=== PATIENT | male | born 1955 | race Caucasian/White ===

== ENCOUNTER 2019-05-25 12:18 | Outpatient (RCR) | payer OTHER, SELFPAY | END 2019-06-09 00:01 | LOC: SPT 12:18 | PROVIDERS: Family Provider Internal Medicine; Visit Provider Licensed Practical Nurse | DX: M51.17 Intervertebral disc disorders with radiculopathy, lumbosacral region (principal) | CPT/HCPCS: 97110; 97162 ==

== ENCOUNTER 2019-06-10 06:00 | Outpatient (RCR) | payer OTHER, SELFPAY | END 2019-07-10 23:59 | disposition home or self-care (01) | LOC: SPT 06:00 | PROVIDERS: Family Provider Internal Medicine; PCP Internal Medicine; Visit Provider Licensed Practical Nurse | DX: M51.17 Intervertebral disc disorders with radiculopathy, lumbosacral region (principal) | CPT/HCPCS: 97110 ==

== ENCOUNTER 2019-07-11 06:00 | Outpatient (RCR) | payer OTHER, SELFPAY | END 2019-08-08 23:59 | disposition home or self-care (01) | LOC: SPT 06:00 | PROVIDERS: Family Provider Internal Medicine; PCP Internal Medicine; Visit Provider Licensed Practical Nurse | DX: Z01.89 Encounter for other specified special examinations (principal) ==

== ENCOUNTER 2020-03-28 08:39 | Inpatient (IN) | payer OTHER, MEDICARE, SELFPAY ==
[2020-03-28] VITALS (10 sets, daily range): BP systolic 148–160; BP diastolic 78–91; PULSE 70–114; RESP 14–28; TEMP 36.6–37.2; O2SAT 82–96; BMI 25.1
--- NOTE | 2020-03-28 08:48 | XRR_ITS ---
PROCEDURE INFORMATION: Exam: XR Chest, 1 View Exam date and time: 03/28/2020 9:04 AM Age: 64 years old Clinical indication: Dyspnea and shortness of breath; Patient HX: Covid + TECHNIQUE: Imaging protocol: XR of the chest Views: 1 view. COMPARISON: No relevant prior studies available. FINDINGS: Lungs: There is right upper lobe consolidation which is consistent with a pneumonia. There also hazy bilateral interstitial infiltrates. These could be due to chronic fibrosis or a viral pneumonitis. Pleural space: There is a small right pleural effusion blunting the right costophrenic angle. Heart/Mediastinum: The cardiac silhouette is enlarged. Bones/joints: Unremarkable. XR/XR chest 1V portable [id number] IMPRESSION: 1. Right upper lobe consolidation consistent with pneumonia. 2. Bilateral hazy interstitial infiltrates which may be due to an acute viral pneumonitis or chronic fibrosis. 3. Small right pleural effusion.
--- NOTE | 2020-03-28 09:02 | ED_ITS ---
HPI - COVID General: Chief Complaint: COVID symptoms Stated Complaint: SOB Time Seen by Provider: 03/28/20 08:47 Triage information: Has fever, cough or shortness of breath . No known COVID + exposure last 14 days History of Present Illness: HPI Narrative: 64-year-old male presents with complaints of shortness of breath and difficulty breathing for the last 3 days progressively worsening. He is a long-term heavy smoker smokes a pack a day or more his sats did drop with exertion however at rest on room air EMS reports she was at 96%. He has some blood-streaked yellow sputum that is increased from his baseline he denies any nausea vomiting diarrhea or headache. There is no chest pain. He is not on any blood thinners. He has not had any contact with known Covid positive patients. He does use occasional beta agonist but he has not reported a significant amount of improvement with those. MD complaint: has COVID symptoms Prior covid testing: no COVID 19 common symptoms: positive cough, productive cough and fatigue; negative throat pain, nasal congestion, nausea, vomiting or diarrhea COVID 19 other sytmptoms: positive requiring oxygen and requiring more oxygen; negative chest pain Onset (ago): day(s) Severity: moderate and slowly worsening Pertinent comorbid conditions: hypertension, COPD/respiratory disease and tobacco use/smoking Treatment prior to arrival: oxygen and other (Subcutaneous terbutaline) COVID Results: SARS-CoV-2 Antigen (Rapid) Negative (Negative) 03/28/20 08:56 03/28/20 Nasal/Oral Coronavirus 2019 PCR Pending 03/28/20 11:11 03/28/20 Review of Systems Const: Reports: fatigue ENMT: Denies: throat pain, ear or mastoid pain, nasal discharge or nasal mary estion Card: Denies: chest pain Resp: Reports: productive cough GI: Denies: abdominal pain, nausea, vomiting, hematemesis, coffee ground emesis, diarrhea, constipation, bloating, hematochezia or melena : Denies: flank pain, dysuria, urinary frequency or urinary urgency Skin/Breast: Denies: rash or pruritus [facility] PFSH: Medical History (Updated 03/28/20 @ 13:08 by Hugo Chong DO) COPD (chronic obstructive pulmonary disease) Peripheral neuropathy Surgical History (Updated 03/28/20 @ 10:56 by Salud Murphy DO) History of shoulder surgery Family History (Updated 03/28/20 @ 10:57 by Salud Murphy DO) Father Stroke Social History (Updated 03/28/20 @ 10:57 by Salud Murphy DO) Smoking and tobacco status: current some day smoker cigarettes Packs smoked per day: 1 Years cigarettes smoked: 50 Alcohol intake: never Substance/Drug Use: never Physical Exam Const: COMMON NORMALS: no acute distress GENERAL APPEARANCE: cooperative and comfortable ORIENTATION/CONSCIOUSNESS: Yes awake, Yes oriented to person, Yes oriented to place and Yes oriented to time HENMT: COMMON NORMALS: normocephalic, atraumatic and hearing grossly normal bilaterally HEAD & SCALP: normocephalic and atraumatic Neck/C-Spine: COMMON NORMALS: no JVD Resp: AUSCULTATION: rales bilateral at the base and wheezes Cardio: COMMON NORMALS: no JVD, regular rate, regular rhythm and No murmurs present (Cardio) RATE: regular rate RHYTHM: regular rhythm GI: COMMON NORMALS: Soft to palpation and No hepatosplenomegaly present AUSCULTATION: Yes normoactive bowel sounds PALPATION: Yes Soft to palpation, No Tenderness to palpation present (GI), No Guarding due to palpation present (GI) and Yes No hepatosplenomegaly present Extremity: COMMON NORMALS: normal to inspection, capillary refill normal, no clubbing, cyanosis or edema, no calf tenderness and no pedal edema Neuro: SENSORIUM/ORIENTATION: Yes oriented to person, Yes oriented to place and Yes oriented to time Skin: COMMON NORMALS: no rashes or lesions noted GENERAL SKIN EXAM: no rashes or lesions noted Course Vital Signs: Vital signs: Vital Signs Temperature 98.9 F 03/28/20 12:51 Pulse Rate 105 H 03/28/20 12:51 Respiratory Rate 17 03/28/20 12:51 Blood Pressure 155/91 03/28/20 12:51 Pulse Oximetry 92 03/28/20 12:51 MDM - COVID MDM Narrative Medical decision making narrative: Strongly suspicious for Covid pneumonia rapid antigen negative PCR is pending will admit started on IV Levaquin also given dexamethasone. Medical Records Medical records narrative: Lab Data Attestation: I reviewed the patient's lab results. Result diagrams: 03/28/20 08:22 03/28/20 08:22 Labs: Lab Results 03/28/20 03/28/20 03/28/20 Range/Units 08:22 08:22 08:22 WBC 14.8 H (4.0-10.0) 10^3/uL RBC 5.09 (4.1-5.3) 10^6/uL Hgb 14.8 (11.7-16.6) g/dL Hct 46.5 (42.0-52.0) % MCV 91.4 (80-94) fL MCH 29.1 (28.0-34.0) pg MCHC 31.8 (30.0-36.0) g/dL RDW 13.6 (12.1-15.1) % Plt Count 341 (130-400) 10^3/cmm MPV 11.4 H (7.4-10.4) fL Neut % (Auto) 78.5 % Lymph % (Auto) 9.4 % [place] % (Auto) 10.9 % Eos % (Auto) 0.5 % Baso % (Auto) 0.3 % Neut # (Auto) 11.61 H (1.8-7.7) 10^3/uL Lymph # (Auto) 1.4 (0.8-4.8) 10^3/uL [place] # (Auto) 1.6 H (0.2-0.9) 10^3/uL Eos # (Auto) 0.1 (0.0-0.8) 10^3/uL Baso # (Auto) 0.0 (0.0-0.1) 10^3/uL Nucleated RBC % (auto) 0 % Nucleated RBCs # 0.0 /100WBC Fibrinogen 603 H (174-498) mg/dL D-Dimer 0.93 H (0-0.59) ug/mIFEU Specimen Type Sample Site ABG pH (7.35-7.45) ABG pCO2 (35-45) mmHg ABG pO2 (80.0-100.0) mmHg ABG HCO3 (22-26) mmol/L ABG Base Excess (-2.0-2.0) mmol/L [place] Test Hematocrit (42-52) % O2 Delivery Device O2 Liters/Min % FiO2 % Cable Splicing Technician ID Sodium 137 (136-145) mmol/L Potassium 4.5 (3.5-5.1) mmol/L Chloride 98 (98-107) mmol/L Carbon Dioxide 26 (22-29) mmol/L Anion Gap 17.5 (5-19) BUN 35 H (8-23) mg/dL Creatinine 1.1 (0.7-1.2) mg/dL GFR Calculation 67.0 L (90-130) mL/min Glucose 122 H (65-115) mg/dL Calculated Osmolality 293 (285-295) mOsm/kg Lactic Acid (0.5-2.2) mmol/L Calcium 9.1 (8.5-10.5) mg/dL Ferritin 340 (30-400) ng/mL Total Bilirubin 0.9 (0.15-1.2) mg/dL AST 30 (0-40) U/L ALT 38 (0-41) U/L Alkaline Phosphatase 93 (40-130) IU/L Lactate Dehydrogenase 321 H (135-225) U/L C-Reactive Protein 128.3 H (0.0-4.9) mg/L NT-Pro-B Natriuret Pep 63443 H (0-125) pg/mL Total Protein 6.7 (6.6-8.7) g/dL Albumin 4.1 (3.5-5.2) g/dL Globulin 2.6 (1.3-4.6) g/dL Procalcitonin 0.16 (0-0.5) ng/mL SARS-CoV-2 Ag (Rapid) (Negative) 03/28/20 03/28/20 03/28/20 Range/Units 08:56 08:56 09:24 WBC (4.0-10.0) 10^3/uL RBC (4.1-5.3) 10^6/uL Hgb (11.7-16.6) g/dL Hct (42.0-52.0) % MCV (80-94) fL MCH (28.0-34.0) pg MCHC (30.0-36.0) g/dL RDW (12.1-15.1) % Plt Count (130-400) 10^3/cmm MPV (7.4-10.4) fL Neut % (Auto) % Lymph % (Auto) % [place] % (Auto) % Eos % (Auto) % Baso % (Auto) % Neut # (Auto) (1.8-7.7) 10^3/uL Lymph # (Auto) (0.8-4.8) 10^3/uL [place] # (Auto) (0.2-0.9) 10^3/uL Eos # (Auto) (0.0-0.8) 10^3/uL Baso # (Auto) (0.0-0.1) 10^3/uL Nucleated RBC % (auto) % Nucleated RBCs # /100WBC Fibrinogen (174-498) mg/dL D-Dimer (0-0.59) ug/mIFEU Specimen Type Arterial Sample Site Brachial, right ABG pH 7.43 (7.35-7.45) ABG pCO2 33.8 L (35-45) mmHg ABG pO2 62.8 L (80.0-100.0) mmHg ABG HCO3 22.4 (22-26) mmol/L ABG Base Excess -1.2 (-2.0-2.0) mmol/L [place] Test N/a Hematocrit 43.1 (42-52) % O2 Delivery Device Nc O2 Liters/Min 2.0 % FiO2 28.0 % Cable Splicing Technician ID Amh Sodium (136-145) mmol/L Potassium (3.5-5.1) mmol/L Chloride (98-107) mmol/L Carbon Dioxide (22-29) mmol/L Anion Gap (5-19) BUN (8-23) mg/dL Creatinine (0.7-1.2) mg/dL GFR Calculation (90-130) mL/min Glucose (65-115) mg/dL Calculated Osmolality (285-295) mOsm/kg Lactic Acid 1.5 (0.5-2.2) mmol/L Calcium (8.5-10.5) mg/dL Ferritin (30-400) ng/mL Total Bilirubin (0.15-1.2) mg/dL AST (0-40) U/L ALT (0-41) U/L Alkaline Phosphatase (40-130) IU/L Lactate Dehydrogenase (135-225) U/L C-Reactive Protein (0.0-4.9) mg/L NT-Pro-B Natriuret Pep (0-125) pg/mL Total Protein (6.6-8.7) g/dL Albumin (3.5-5.2) g/dL Globulin (1.3-4.6) g/dL Procalcitonin (0-0.5) ng/mL SARS-CoV-2 Ag (Rapid) Negative (Negative) COVID Results: SARS-CoV-2 Antigen (Rapid) Negative (Negative) 03/28/20 08:56 03/28/20 Nasal/Oral Coronavirus 2019 PCR Pending 03/28/20 11:11 03/28/20 Discharge Plan Discharge Patient Disposition: Admitted As Inpatient Admit Provider: Salud Murphy Clinical Impression: Pneumonia, Suspected severe acute respiratory syndrome coronavirus 2 (SARS-CoV-2) infection, Acute exacerbation of chronic obstructive pulmonary disease, COPD (chronic obstructive pulmonary disease), Hemoptysis Condition: Stable Interventions: ED Discharge Assessment Last Done: 03/28/20 12:12 ED Charges Last Done: 03/28/20 12:12 Discharge Date/Time: 03/28/20 12:13 Coding Level of Care Code ED Auditing Manager for Chg Fwd Exam Comprehensive
[2020-03-28 09:07] LABS: Blood Gas Sample Type Arterial; Oxygen Device NC
[2020-03-28 09:11] LABS: Basophils % 0.3 %; Eosinophils # 0.1 10^3/uL (0.0-0.8); Eosinophils % 0.5 %; Hematocrit 46.5 % (42.0-52.0); Hemoglobin 14.8 g/dL (11.7-16.6); Lymphocytes # 1.4 10^3/uL (0.8-4.8); Lymphocytes % 9.4 %; Mean Corpuscular HGB Conc 31.8 g/dL (30.0-36.0); Mean Corpuscular Hemoglobin 29.1 pg (28.0-34.0); Mean Corpuscular Volume 91.4 fL (80-94); Mean Platelet Volume 11.4 fL (7.4-10.4); Monocytes # 1.6 10^3/uL (0.2-0.9); Monocytes % 10.9 %; Neutrophils # 11.61 10^3/uL (1.8-7.7); Neutrophils % 78.5 %; Nucleated Red Blood Cells % 0 %; Platelet Count 341 10^3/cmm (130-400); Red Blood Count 5.09 10^6/uL (4.1-5.3); Red Cell Distribution Width 13.6 % (12.1-15.1); White Blood Count 14.8 10^3/uL (4.0-10.0)
[2020-03-28 09:13] LABS: ABG PCO2 33.8 mmHg (35-45); ABG PH Result 7.43 (7.35-7.45); Arterial Blood Gas Hematocrit 43.1 % (42-52); Blood Gas Operator Identificat AMH; Blood Gas Sample Site Brachial, right; HCO3 ABG 22.4 mmol/L (22-26); PO2 ABG 62.8 mmHg (80.0-100.0)
[2020-03-28 09:15] LABS: Base Excess ABG -1.2 mmol/L (-2.0-2.0)
[2020-03-28 09:17] LABS: Fibrinogen 603 mg/dL (174-498)
[2020-03-28 09:21] LABS: D Dimer 0.93 ug/mIFEU (0-0.59)
[2020-03-28 09:38] LABS: NT Pro B Type Natriuretic Pept 23065 pg/mL (0-125); Procalcitonin 0.16 ng/mL (0-0.5)
[2020-03-28 09:43] LABS: SARS Covid-2 Antigen Negative (Negative)
[2020-03-28 09:50] LABS: Lactic Sepsis W/Reflex 1.5 mmol/L (0.5-2.2)
[2020-03-28 09:51] LABS: Alanine Aminotransferase 38 U/L (0-41); Albumin Level 4.1 g/dL (3.5-5.2); Alkaline Phosphatase 93 IU/L (40-130); Anion Gap 17.5 (5-19); Aspartate Amino Transferase 30 U/L (0-40); Blood Urea Nitrogen 35 mg/dL (8-23); C Reactive Protein 128.3 mg/L (0.0-4.9); Calcium 9.1 mg/dL (8.5-10.5); Carbon Dioxide 26 mmol/L (22-29); Chloride 98 mmol/L (98-107); Ferritin 340 ng/mL (30-400); Globulin 2.6 g/dL (1.3-4.6); Glucose 122 mg/dL (65-115); Lactate Dehydrogenase 321 U/L (135-225); Osmolality Calculated 293 mOsm/kg (285-295); Potassium 4.5 mmol/L (3.5-5.1); Sodium 137 mmol/L (136-145); Total Bilirubin 0.9 mg/dL (0.15-1.2); Total Protein 6.7 g/dL (6.6-8.7)
--- NOTE | 2020-03-28 10:04 | CT_ITS ---
WS: [id number] CTA OF THE CHEST WITH PULMONARY EMBOLISM PROTOCOL TECHNIQUE: High-resolution contrast enhanced CTA of the chest with coronal and sagittal reformatted i toms with pulmonary embolism protocol. MIP images are also reviewed. CLINICAL INFORMATION: dyspnea COMPARISON: None. DLP: 996.[address] scans at [facility] use at least one of these dose optimization techniques: automat ed exposure control; mA and/or kV adjustment per patient size (includes targeted exams where dose is matched to clinical indication); or iterative reconstruction. FINDINGS: Proximal main pulmonary arteries are normal. Segmental and subsegmental pulmonary arteries appear pat ent considering motion artifact. No definite evidence of pulmonary embolus. Distal vessels not well v isualized. Moderate right pleural effusion with diffuse airspace infiltrates in the right upper lobe. Compressiv e atelectasis in the right lower lobe. Recommend correlation for pneumonia. A few groundglass infiltr ates in the left upper lobe medially. Small amount of hazy infiltrate in the superior segment left lo wer lobe. Normal caliber thoracic aorta. Aortic calcification. Prominent anterior mediastinal lymph nodes. Bron chovascular thickening along the right hilum with Right hilar and subcarinal lymphadenopathy nonspeci fic but may be reactive. CT/CT angio chest PE protcl [id number] IMPRESSION: 1. Some images degraded by motion but no evidence of pulmonary embolus. 2. Moderate right pleural effusion with compressive atelectasis in the right l ower lobe. Recommend correlation for pneumonia. 3. Diffuse airspace infiltrates involving the right upper lobe. 4. Bronchovascular thickening along the right hilum with enlarged right hilar and subcarinal lymph nodes. These are nonspecific but may be reactive. Neoplasm not entirely excluded. Attempted notification Hugo Chong DO at 03/28/2020 11:59 AM.
--- NOTE | 2020-03-28 10:12 | ECG_ITS ---
[facility] Test Date: 2020-03-28 Pat Name: Solo Ryan Department: Room: Gender: Male Insurance Coordinator: : 1955 Requested By: Hugo Arroyo Order Number: [id number] Ayden MD: Alina Clay M.D. Measurements Intervals Elmer Rate: 109 P: 78 LA: 152 QRS: -10 QRSD: 122 T: 83 QT: 368 QTc: 497 Interpretive Statements SINUS TACHYCARDIA WITH OCCASIONAL SUPRAVENTRICULAR PREMATURE COMPLEXES POSSIBLE LEFT ATRIAL ENLARGEMENT [-0.1mV P WAVE IN V1/V2] INDETERMINATE AXIS POSSIBLE RIGHT VENTRICULAR CONDUCTION DELAY [RSR (QR) IN V1/V2] LEFT VENTRICULAR HYPERTROPHY AND ST-T CHANGE [VOLTAGE CRITERIA PLUS ST/T ABNORMALITY] No previous ECG available for comparison Electronically Signed On 03-28-2020 21:39:36 CDT by Alina Clay M.D. [id number] f
[2020-03-28] MEDS: dexamethasone 4 mg/mL INJ 6 MG IVP (10:39)
[2020-03-28] MEDS: levofloxacin-dextrose 5 % 750 MG/150 ML PREMIX 100 MG IV (10:39)
--- NOTE | 2020-03-28 10:54 | USCV_ITS ---
Solo Ryan Age: 64 Gender: M : 1955 Exam Date: 03/28/2020 13:51 Ordering Phys: Salud Murphy DO Technologist: Randal Luong Exam Location: [facility] – [place], [place] Indication: MURMUR BP: 148 / 88 HR: 97 Rhythm: Sinus Technical Quality: Adequate MEASUREMENTS (Male / Female) Normal Values 2D ECHO LV Diastolic Diameter PLAX 5.9 cm 4.2 - 5.9 / 3.9 - 5.3 cm LV Systolic Diameter PLAX 5.3 cm IVS Diastolic Thickness 2.1 cm 0.6 - 1.0 / 0.6 - 0.9 cm IVS Systolic Thickness 1.9 cm LVPW Diastolic Thickness 1.7 cm 0.6 - 1.0 / 0.6 - 0.9 cm LVPW Systolic Thickness 2.0 cm LVOT Diameter 2.0 cm LV Ejection Fraction 2D Teich 22.4 % LV Ejection Fraction MOD 2C 47.1 % LV Ejection Fraction 2C AL 45.3 % LA Diameter 4.0 cm LA Width 5.0 cm LA Height 5.3 cm RA Width 3.8 cm RA Height 5.4 cm Aorta at Sinotubular Diameter 0.9 cm M-MODE LV Diastolic Diameter MM 6.5 cm 4.2 - 5.9 / 3.9 - 5.3 cm LV Systolic Diameter MM 4.7 cm LV Ejection Fraction MM Teich 52.1 % IVS Diastolic Thickness MM 1.8 cm 0.6 - 1.0 / 0.6 - 0.9 cm IVS Systolic Thickness MM 2.4 cm LVPW Diastolic Thickness MM 1.7 cm 0.6 - 1.0 / 0.6 - 0.9 cm LVPW Systolic Thickness MM 2.2 cm RV Diastolic Diameter MM 1.4 cm Aortic Annulus Diameter 3.7 cm LA Ao Ratio MM 1.2 MV E Point Septal Separation 2.2 cm DOPPLER AV Peak Velocity 424.0 cm/s LVOT Peak Velocity 63.0 cm/s AV Area Cont Eq vti 0.5 cm squared AV Area Cont Eq pk 0.5 cm squared MV Area PHT 6.3 cm squared Mitral E to A Ratio 1.6 MV E' Velocity 53.0 cm/s Mitral E to MV E' Ratio 14.0 Mitral E to LV E' Lateral Ratio 12.4 Mitral E to LV E' Septal Ratio 16.0 TR Peak Velocity 452.0 cm/s TR Peak Gradient 81.7 mmHg TV Peak E Velocity 83.0 cm/s Right Atrial Pressure 3.0 mmHg Pulmonary Artery Systolic Pressu 84.7 mmHg PV Peak Velocity 56.0 cm/s FINDINGS Left Ventricle Diffuse hypokinesia left ventricle with an ejection fraction of 35%. Moderate concentric left atrial hypertrophy.Grade III/IV diastolic dysfunction (restrictive filling pattern), severely elevated filling pressures. Right Ventricle Normal right ventricular size and systolic function. Right Atrium Normal right atrial size. Left Atrium Mildly increased left atrial size. The interatrial septum appears to be bulging to the right. Mitral Valve Thickened mitral valve. Mild mitral annular calcification. Mild mitral valve regurgitation. Aortic Valve Severe aortic valve stenosis, mean gradient 31.1 mmHg, JJ 0.49 cm squared. (Peak velocity of 4.24 m/s moderate aortic valve regurgitation. Tricuspid Valve Mild tricuspid valve regurgitation. Severe pulmonary hypertension with an estimated pulmonary artery peak systolic pressure of 85 mmHg. Pulmonic Valve Mild pulmonary valve regurgitation. Pericardium No pericardial effusion. Aorta Normal aortic annulus size. CONCLUSIONS Diffuse hypokinesia left ventricle with an ejection fraction of 35%. Moderate concentric left atrial hypertrophy.Grade III/IV diastolic dysfunction (restrictive filling pattern), severely elevated filling pressures. Severe aortic valve stenosis, mean gradient 31.1 mmHg, JJ 0.49 cm squared. (Peak velocity of 4.24 m/s Moderate aortic valve regurgitation. Severe pulmonary hypertension with an estimated pulmonary artery peak systolic pressure of 85 mmHg. Mildly increased left atrial size. The interatrial septum appears to be bulging to the right. Thickened mitral valve. Mild mitral annular calcification. Mild mitral valve regurgitation. Mild pulmonic and tricuspid regurgitation No previous studies available for comparison. Daughter Jeffrey was informed about these findings Dr Alina Clay MD [facility] (Electronically Signed) Final Date: 28 March 2020 17:52 S
--- NOTE | 2020-03-28 10:54 | PM.HP ---
Providers/Chief Complaint Primary Care Provider: Hubert Cifuentes Chief Complaint: SOB History of Present Illness Solo Ryan is a 64 year old male with a past medical history of peripheral neuropathy and tobacco abuse that presented to the emergency department today for increasing shortness of breath. Stated that his symptoms have been progressive over the past 3 to 4 days. He reports occasional chills at home, no fevers. Denies any sick contacts. Patient denies any known exposure to anyone under investigation or positive for COVID-19. He denies any cardiac history. Reports that he has been coughing up blood-tinged sputum over the past 3 to 4 days, this is new. He denies being on any oxygen at home, denies using any inhalers at home. Patient reports no recent hospitalizations, no recent antibiotic usage, no recent steroid usage. Patient was seen and evaluated in the emergency department noted to have concern for hemoptysis, hypoxia, tachycardia with concern for pneumonia and also concern for viral pneumonia. Patient was admitted for further evaluation and treatment. Review of Systems Const: Reports: chills; Denies: fever(s) Eyes: Denies: change in vision ENMT: Denies: nasal congestion Card: Denies: chest pain, palpitations or edema Resp: Reports: dyspnea, productive cough and hemoptysis GI: Denies: abdominal pain, nausea, vomiting, diarrhea, constipation, hematochezia or melena : Denies: dysuria or hematuria Musc: Denies: extremity pain or muscle cramps Skin/Breast: Denies: rash or new lesions Neuro: Denies: headache(s) or dizziness Psych: Denies: anxiety or depression Endo: Denies: polyuria or hot flashes Abraham/Lymph: Denies: easy bruising or easy bleeding Medications/Allergies Home Medications Medication Instructions Recorded Confirmed Last Taken Type acetaminophen [Tylenol] 500 mg PO QID PRN 03/28/20 03/28/20 Unknown History gabapentin 250 mg PO QID 03/28/20 03/28/20 03/28/20 History Allergies Allergy/AdvReac Type Severity Reaction Status Date / Time No Known Allergies Allergy Verified 03/28/20 08:48 PFSH Acute PFSH: Medical History (Updated 03/28/20 @ 11:01 by Salud Murphy DO) COPD (chronic obstructive pulmonary disease) Peripheral neuropathy Surgical History (Updated 03/28/20 @ 10:56 by Salud Murphy DO) History of shoulder surgery Family History (Updated 03/28/20 @ 10:57 by Salud Murphy DO) Father Stroke Social History (Updated 03/28/20 @ 10:57 by Salud Murphy DO) Smoking and tobacco status: current some day smoker cigarettes Packs smoked per day: 1 Years cigarettes smoked: 50 Alcohol intake: never Substance/Drug Use: never Vitals/I&O/Wt Last Vital Signs Temp 98.0 F 03/28/20 08:40 Pulse 108 H 03/28/20 08:48 Resp 28 H 03/28/20 08:48 BP 150/88 03/28/20 08:48 Pulse Ox 94 03/28/20 08:48 Weight last 48 hrs Weight 79.379 kg Physical Exam Const: COMMON NORMALS: patient oriented x3 and alert GENERAL APPEARANCE: cooperative ORIENTATION/CONSCIOUSNESS: Yes awake, Yes oriented to person, Yes oriented to place and Yes oriented to time HENMT: COMMON NORMALS: normocephalic and atraumatic HEAD & SCALP: normocephalic and atraumatic Eye: COMMON NORMALS: Equal, round and reactive pupils present PUPIL: Yes Equal, round and reactive pupils present Neck/C-Spine: COMMON NORMALS: supple GENERAL: Yes normal visual inspection Resp: EFFORT & INSPECTION: Yes tachypneic, Yes labored, Yes Actively coughing and Yes uses accessory muscles AUSCULTATION: no rhonchi and no wheezes OTHER: Diminished breath sounds bilaterally with prolonged expiratory phase Cardio: COMMON NORMALS: regular rhythm and No murmurs present (Cardio) RATE: tachycardic RHYTHM: regular rhythm GI: COMMON NORMALS: Soft to palpation and non-tender INSPECTION: No abdominal distension AUSCULTATION: Yes normoactive bowel sounds PALPATION: Yes Soft to palpation : COMMON NORMALS: Yes no CVA tenderness BLADDER/KIDNEY EXAM: Yes no CVA tenderness Back/Pelvis: COMMON NORMALS: no CVA tenderness Extremity: COMMON NORMALS: no calf tenderness NARRATIVE EXTREMITY EXAM: Clubbing present in the fingers Neuro: COMMON NORMALS: patient oriented x3, CN's II-XII intact bilaterally, moves all extremities and no focal motor deficits SENSORIUM/ORIENTATION: Yes alert, Yes oriented to person, Yes oriented to place and Yes oriented to time SPEECH: speech normal Psych: COMMON NORMALS: cooperative OTHER: Patient is very restless and unable to sit still Skin: COMMON NORMALS: no rashes or lesions noted GENERAL SKIN EXAM: no rashes or lesions noted Data : 03/28/20 08:22 03/28/20 08:22 Micro: Microbiology 03/28/20 09:24 Blood Culture - Preliminary Blood SPECIMEN COLLECTED 03/28/20 09:24 Blood Culture - Preliminary Blood SPECIMEN COLLECTED CXR: I personally reviewed and interpreted this imaging study as follows: Radiologist's impression: XR/XR chest 1V portable [id number] IMPRESSION: 1. Right upper lobe consolidation consistent with pneumonia. 2. Bilateral hazy interstitial infiltrates which may be due to an acute viral pneumonitis or chronic fibrosis. 3. Small right pleural effusion. A&P Assessment and plan (1) Pneumonia: With concern for viral pneumonia as well as concern for underlying COPD exacerbation, also will give antibiotics due to concern for developing bacterial pneumonia Continue on Levaquin 750 mg daily Respiratory therapy to assess and treat Oxygen per protocol Patient is not on any home oxygen, likely has underlying undiagnosed COPD, continues to smoke 1 pack/day We will further evaluate with CTA of the chest due to patient having hemoptysis and hypoxia as well as tachycardia Patient had a rapid antigen testing for COVID-19 that returned negative, however due to clinical concern patient has send out PCR that is pending. To remain on isolation precautions including contact and droplet precautions. Status: Acute (2) COPD (chronic obstructive pulmonary disease): With concern for acute exacerbation Respiratory therapy to assess and treat, oxygen per protocol Placed on Solu-Medrol 60 mg every 6 hours x3 doses then will give prednisone 40 mg daily Continue with antibiotics as above, Levaquin Status: Acute (3) Hemoptysis: Is tachycardic, tachypneic, hypoxic and has new onset hemoptysis We will further evaluate with CTA of the chest due to elevated D-dimer Status: Acute Additional A&P Information Continue home gabapentin for peripheral neuropathy Elevated BNP: We will check echocardiogram for further evaluation and treatment due to concern for this and hypoxia DVT prophylaxis: SCDs, no pharmacologic prophylaxis due to concern for hemoptysis Diet: 2 g sodium restriction CODE STATUS: Full code, this was discussed with the patient Attestations Medical Necessity Statement*: Patient requires hospitalization due to concern for pneumonia, hypoxia, acute COPD exacerbation with hemoptysis, expected stay greater than 2 midnights. Coding Level of Care Code Acute Head Silverman for [facility] Fwd Diagnoses Pneumonia J18.9 COPD (chronic obstructive pulmonary disease) J44.9 Hemoptysis R04.2
[2020-03-28] MEDS: iohexol 350 mg/mL 100 mL Btl IV (11:14)
[2020-03-28 15:53] LABS: Basophils % 0.1 %; Hematocrit 43.5 % (42.0-52.0); Hemoglobin 13.7 g/dL (11.7-16.6); Lymphocytes # 0.3 10^3/uL (0.8-4.8); Lymphocytes % 2.8 %; Mean Corpuscular HGB Conc 31.5 g/dL (30.0-36.0); Mean Corpuscular Hemoglobin 28.5 pg (28.0-34.0); Mean Corpuscular Volume 90.6 fL (80-94); Mean Platelet Volume 10.8 fL (7.4-10.4); Monocytes # 0.2 10^3/uL (0.2-0.9); Monocytes % 1.6 %; Neutrophils # 10.58 10^3/uL (1.8-7.7); Neutrophils % 95.2 %; Nucleated Red Blood Cells % 0 %; Platelet Count 351 10^3/cmm (130-400); Red Cell Distribution Width 13.6 % (12.1-15.1); White Blood Count 11.1 10^3/uL (4.0-10.0)
[2020-03-28 15:56] LABS: INR 1.13 (0.8-1.2)
[2020-03-28] MEDS: albuterol 8 gm MDI 2 PUFF INHALATION ×3 (16:25→23:43)
[2020-03-28] MEDS: gabapentin 300 mg Capsule PO (19:02)
[2020-03-29] VITALS (14 sets, daily range): BP systolic 109–169; BP diastolic 70–84; PULSE 71–110; RESP 18–22; TEMP 36.4–36.9; O2SAT 74–94
[2020-03-29] MEDS: gabapentin 300 mg Capsule PO ×5 (00:28→22:05)
[2020-03-29 02:41] LABS: Amphetamines Screen Urine Negative (Negative); Barbiturates Screen Urine Negative (Negative); Benzodiazepines Screen Urine Negative (Negative); Cocaine Screen Urine Negative (Negative); Opiate Screen Urine Negative (Negative); PCP Screen Urine Negative (Negative); THC Screen Urine Positive (Negative)
[2020-03-29] MEDS: albuterol 8 gm MDI 2 PUFF INHALATION ×3 (04:09→15:06)
[2020-03-29 06:43] LABS: Blood Urea Nitrogen 41 mg/dL (8-23); Calcium 8.7 mg/dL (8.5-10.5); Carbon Dioxide 16 mmol/L (22-29); Chloride 102 mmol/L (98-107); Glomerular Filtration Rate 60.6 mL/min (90-130); Glucose 151 mg/dL (65-115); Osmolality Calculated 291 mOsm/kg (285-295); Sodium 134 mmol/L (136-145)
[2020-03-29 06:46] LABS: Anion Gap 20.7 (5-19); Potassium 4.7 mmol/L (3.5-5.1)
[2020-03-29] MEDS: FUROsemide 10 mg/mL SDV 4mL 40 MG IVP ×2 (08:57→22:05)
[2020-03-29] MEDS: pantoprazole DR 40 mg Tablet PO (08:58)
--- NOTE | 2020-03-29 09:08 | P.PN_ITS ---
Subjective Subjective: Interval history: Patient awake and sitting at the side of the bed upon entering the room. He reported that his shortness of breath continues, denies any chest pain. He stated that breathing is slightly better than yesterday but continues to have productive cough, blood-streaked sputum. Discussed with him concern for severe aortic stenosis and congestive heart failure, he verbalized understanding and agreed with cardiology consultation. Vitals/I&O/Wt Last Vital Signs Temp 97.5 F L 03/29/20 08:00 Pulse 102 H 03/29/20 08:29 Resp 18 03/29/20 08:29 BP 169/82 03/29/20 08:00 Pulse Ox 92 03/29/20 08:29 03/28/20 03/29/20 03/29/20 22:59 06:59 14:59 Intake Total 120 / 120 Output Total 200 / 200 Balance 120 / 120 -200 / -200 Weight last 48 hrs Weight 79.379 kg Physical Exam Const: COMMON NORMALS: patient oriented x3 and alert GENERAL APPEARANCE: cooperative ORIENTATION/CONSCIOUSNESS: Yes awake, Yes oriented to person, Yes oriented to place and Yes oriented to time HENMT: COMMON NORMALS: normocephalic and atraumatic HEAD & SCALP: normocephalic and atraumatic Eye: COMMON NORMALS: Equal, round and reactive pupils present PUPIL: Yes Equal, round and reactive pupils present Neck/C-Spine: COMMON NORMALS: supple GENERAL: Yes normal visual inspection Resp: EFFORT & INSPECTION: Yes tachypneic, Yes labored, Yes Actively coughing and Yes uses accessory muscles AUSCULTATION: no rhonchi and no wheezes OTHER: Diminished breath sounds bilaterally with prolonged expiratory phase Cardio: COMMON NORMALS: regular rhythm RATE: tachycardic RHYTHM: regular rhythm OTHER: distant heart sounds, systolic murmur GI: COMMON NORMALS: Soft to palpation and non-tender INSPECTION: No abdominal distension AUSCULTATION: Yes normoactive bowel sounds PALPATION: Yes Soft to palpation : COMMON NORMALS: Yes no CVA tenderness BLADDER/KIDNEY EXAM: Yes no CVA tenderness Back/Pelvis: COMMON NORMALS: no CVA tenderness Extremity: COMMON NORMALS: no calf tenderness NARRATIVE EXTREMITY EXAM: Clubbing present in the fingers Neuro: COMMON NORMALS: patient oriented x3, CN's II-XII intact bilaterally, moves all extremities and no focal motor deficits SENSORIUM/ORIENTATION: Yes alert, Yes oriented to person, Yes oriented to place and Yes oriented to time SPEECH: speech normal Psych: COMMON NORMALS: cooperative OTHER: Patient remains restless Skin: COMMON NORMALS: no rashes or lesions noted GENERAL SKIN EXAM: no rashes or lesions noted Data : 03/28/20 15:35 03/29/20 05:11 Micro: Microbiology 03/28/20 09:24 Blood Culture - Preliminary Blood SPECIMEN COLLECTED 03/28/20 09:24 Blood Culture - Preliminary Blood SPECIMEN COLLECTED A&P Assessment and plan (1) Pneumonia: Continue Levaquin 750mg daily RTAT, oxygen per protocol Status: Acute (2) COPD (chronic obstructive pulmonary disease): With acute exacerbation, continue on Levaquin, received 3 doses of Solu- Medrol, transition to prednisone today Status: Acute (3) Hemoptysis: CTA showing bronchovascular thickening along the right hilum with enlarged right hilar and subcarinal lymph nodes, may be reactive due to pneumonia, neoplasm cannot be excluded would recommend close outpatient follow-up Status: Acute Additional A&P Information New diagnosis of combined CHF: Diffuse hypokinesis, LVEF of 35% with grade 3 diastolic dysfunction and severe pulmonary hypertension. Continue with IV Lasix 40 mg daily, started on low-dose beta-jason, JENY inhibitor, cardiology consultation. Severe aortic stenosis: Cardiology consultation, this is new diagnosis for patient, denies any history of valvular heart disease Continue home gabapentin for peripheral neuropathy Patient remains under investigation for COVID-19 viral pneumonia, remain on contact and droplet precautions at this time DVT prophylaxis: SCDs, no pharmacologic prophylaxis due to concern for hemoptysis Diet: 2 g sodium restriction CODE STATUS: Full code, this was discussed with the patient on admission Attestations Medical Necessity Statement*: Patient requires hospitalization due to pneumonia, combined CHF exacerbation, severe aortic stenosis, hemoptysis and COPD exacerbation Coding Level of Care Code Acute Key Account Director for [facility] Fwd Diagnoses Pneumonia J18.9 COPD (chronic obstructive pulmonary disease) J44.9 Hemoptysis R04.2
[2020-03-29 09:52] LABS: Chol HDL Ratio 4.26 mg/dL (1.0-5.00); Cholesterol 149 mg/dL (0-200); HDL Cholesterol 35 mg/dL (60-100); LDL Cholesterol Calculated 96 mg/dL (50-129); LDL HDL Ratio 2.74 RATIO (0.00-3.22); Triglycerides 89 mg/dL (0-150)
[2020-03-29] MEDS: lisinopril 2.5 mg Tablet PO (11:08)
[2020-03-29] MEDS: predniSONE 20 mg Tablet 40 MG PO (11:08)
[2020-03-29] MEDS: metoprolol tartrate 25 mg Tablet PO ×2 (11:09→17:23)
[2020-03-29] MEDS: levofloxacin-dextrose 5 % 750 MG/150 ML PREMIX 100 MG IV (11:09)
[2020-03-29 11:34] LABS: Basophils % 0.1 %; Hematocrit 44.8 % (42.0-52.0); Hemoglobin 14.3 g/dL (11.7-16.6); Lymphocytes # 0.5 10^3/uL (0.8-4.8); Lymphocytes % 2.1 %; Mean Corpuscular HGB Conc 31.9 g/dL (30.0-36.0); Mean Corpuscular Hemoglobin 29.1 pg (28.0-34.0); Mean Corpuscular Volume 91.2 fL (80-94); Monocytes % 4.3 %; Neutrophils # 20.99 10^3/uL (1.8-7.7); Nucleated Red Blood Cells % 0 %; Platelet Count 325 10^3/cmm (130-400); Red Blood Count 4.91 10^6/uL (4.1-5.3); Red Cell Distribution Width 13.6 % (12.1-15.1); White Blood Count 22.6 10^3/uL (4.0-10.0)
--- NOTE | 2020-03-29 16:35 | P.CONIM_ITS ---
Providers/Reason For Consult Consulting Physican/Specialty*: Reynaldo Clay MD/cardiology Reason for Consult*: Patient has LV dysfunction, severe aortic valve stenosis and shortness of breath Attending Physician: Salud Murphy DO Primary Care Provider: Hubert Cifuentes History of Present Illness History of Present Illness Solo Ryan is a 64 year old male is admitted to the hospital, through the emergency room, where he presented with complaints of progressive shortness of breath. He was found to have features of COPD exacerbation, possible pneumonia and congestive heart failure. His echocardiogram revealed possible severe aortic valve stenosis with diminished LV ejection fraction of around 35%. He denies any chest pain or palpitations. No dizziness or syncopal episode. Patient may have had a low-grade fever. He also had a dry cough. No significant leg swelling. The shortness of breath has been gradually getting worse. For these complaints, he decided to come to the hospital. He was tested negative for Covid.-19. He has a longstanding history of smoking abuse for 60 years or so, 1 pack a day. Remote history of alcohol abuse. No other substance abuse. He has not been doing any medication for COPD. He has a history of neuropathy from right shoulder injury. He has been taking the gabapentin for this. No history for coronary artery disease, myocardial infarction or congestive heart failure. No history for CVA or the risk of bleeding, hematoma, vascular injury, distal embolization/gangrene, renal failure, limb loss and other concomitant complications were explained in detail. Patient understood this well and consented to proceed. No history for kidney disease, liver disease or bleeding disorders. Review of Systems Narrative: GENERAL: The patient is alert and oriented times three. Not in any acute distress. HEENT: No significant pallor, icterus or lymphadenopathy. The pupils are reactant to light. Oral cavity: There are no mucous membrane lesions. Fundus is not visualized NECK: Trachea appears to be central. No masses noted. No JVD or thyromegaly appreciated. No carotid bruit. RESPIRATORY: Chest is symmetrical. No intercostals muscle retraction or any accessory muscle activation. There is no chest wall tenderness. Breath sounds are heard bilaterally. No rales or rhonchi heard. No evidence of any consolidation. BREASTS: Deferred. HEART: The PMI is in the 5th left intercostals space just inside the midclavicular line. No palpable precordial events. S1 and S2 are normal. No S3 or S4 heard. No pericardial rub or any click heard. ABDOMEN: No vessel pulsations or distention. No tenderness. No organomegaly appreciated. No abdominal bruit. Bowel sounds are normally heard. : Deferred. RECTAL: Deferred. LYMPHATIC: No lymphadenopathy noted in the neck or groin. EXTREMITIES: The dorsalis pedis and posterior pulses are weak bilaterally. Trace edema. No cyanosis. MUSCULOSKELETAL: No acute joint deformities or swelling SKIN: There are no significant scars or skin rash noted. NEUROPSYCHIATRIC: The patient is alert and oriented x3. Appears to be in a good mood. The higher functions are grossly within normal limits. No tremors or ri gidity noted. Meds/Allergies Home Medications and Allergies Home Medications Medication Instructions Recorded Confirmed Last Taken Type acetaminophen [Tylenol] 500 mg PO QID PRN 03/28/20 03/28/20 Unknown History gabapentin 250 mg PO QID 03/28/20 03/28/20 03/28/20 History Allergies Allergy/AdvReac Type Severity Reaction Status Date / Time No Known Allergies Allergy Verified 03/28/20 08:48 Current Medications Current Medications Generic Name Dose Route Start Last Admin Trade Name Freq PRN Reason Stop Dose Admin Albuterol Sulfate 2 puff 03/28/20 16:00 03/29/20 15:06 Ventolin INHALATION 2 puff Q4H.RESPIRATORY PRN Administration SHORTNESS OF BREATH Gabapentin 300 mg 03/28/20 17:00 03/29/20 14:06 Neurontin PO 300 mg QID JOSÉ ANTONIO Administration Levofloxacin/Dextrose 750 mg in 150 mls @ 100 mls/hr 03/29/20 10:30 03/29/20 11:09 Levaquin-D5w IV 100 mls/hr Q24H JOSÉ ANTONIO Administration Protocol Lisinopril 2.5 mg 03/29/20 09:30 03/29/20 11:08 Prinivil PO 2.5 mg DAILY JOSÉ ANTONIO Administration Metoprolol Tartrate 25 mg 03/29/20 09:00 03/29/20 11:09 Lopressor PO 25 mg BID JOSÉ ANTONIO Administration Pantoprazole Sodium 40 mg 03/29/20 09:00 03/29/20 08:58 Protonix PO 40 mg DAILY JOSÉ ANTONIO Administration Prednisone 40 mg 03/29/20 09:30 03/29/20 11:08 Prednisone PO 40 mg DAILY JOSÉ ANTONIO Administration PFSH Acute PFSH: Medical History Acute systolic heart failure COPD (chronic obstructive pulmonary disease) Peripheral neuropathy Severe aortic valve stenosis Surgical History History of shoulder surgery Family History Father Stroke Social History Smoking and tobacco status: current some day smoker cigarettes Packs smoked per day: 1 Years cigarettes smoked: 50 Alcohol intake: never Substance/Drug Use: never Vitals/I&O/Wt Last Vital Signs Temp 98.0 F 03/29/20 15:47 Pulse 94 03/29/20 15:47 Resp 18 03/29/20 15:47 BP 149/83 03/29/20 15:47 Pulse Ox 90 03/29/20 15:47 03/29/20 03/29/20 03/29/20 06:59 14:59 22:59 Intake Total 640 / 640 Output Total 600 / 600 300 / 900 Balance 40 / 40 -300 / -260 Weight last 48 hrs Weight 175 lb Physical Exam Narrative: EXAM NARRATIVE: GENERAL: The patient is alert and oriented times three. Not in any acute distress. HEENT: No significant pallor, icterus or lymphadenopathy. . Oral cavity: There are no mucous membrane lesions. Funduscopic examination: The fundus is not visualized NECK: Trachea appears to be central. No masses noted. No JVD or thyromegaly appreciated. No carotid bruit. RESPIRATORY: Chest is symmetrical. No intercostals muscle retraction or any accessory muscle activation. There is no chest wall tenderness. Breath sounds are heard bilaterally. Scattered rales and rhonchi bilaterally. No evidence of any consolidation. BREASTS: Deferred. HEART: The PMI is in the 5th left intercostals space just in the midclavicular line. No palpable precordial events. S1 and S2 are normal. No S3 or S4 heard. No pericardial rub or any click heard. Ejection systolic murmur of grade 4/6 in the aortic area with a transmission to both carotids. No diastolic murmurs. ABDOMEN: No vessel pulsations or distention. No tenderness. No organomegaly appreciated. No abdominal bruit. Bowel sounds are normally heard. : Deferred. RECTAL: Deferred. LYMPHATIC: No lymphadenopathy noted in the neck or groin. EXTREMITIES: No severe edema or cyanosis. Peripheral pulses are weak bilaterally. MUSCULOSKELETAL: No acute joint deformities or swelling. SKIN: There are no significant scars or skin rash noted. NEUROPSYCHIATRIC: The patient is alert and oriented x3. Appears to be in a good mood. The higher functions are grossly within normal limits. No tremors or rigidity noted. Data Micro: Micro: Microbiology 03/28/20 23:31 Gram Stain - Final Sputum - Expector ated Sputum 03/28/20 09:24 Blood Culture - Pr eliminary Blood NEGATIVE TO CAMILLE E 03/28/20 09:24 Blood Culture - Pr eliminary Blood NEGATIVE TO CAMILLE E Echocardiogram on 03/28/2020 Diffuse hypokinesia left ventricle with an ejection fraction of 35%. Moderate concentric left atrial hypertrophy.Grade III/IV diastolic dysfunction (restrictive filling pattern), severely elevated filling pressures. Severe aortic valve stenosis, mean gradient 31.1 mmHg, JJ 0.49 cm squared. (Peak velocity of 4.24 m/s Moderate aortic valve regurgitation. Severe pulmonary hypertension with an estimated pulmonary artery peak systolic pressure of 85 mmHg. Mildly increased left atrial size. The interatrial septum appears to be bulging to the right. Thickened mitral valve. Mild mitral annular calcification. Mild mitral valve regurgitation. Mild pulmonic and tricuspid regurgitation No previous studies available for comparison. Jaja Murphy was informed about these findings Chest CTA 1. Some images degraded by motion but no evidence of pulmonary embolus. 2. Moderate right pleural effusion with compressive atelectasis in the right lower lobe. Recommend correlation for pneumonia. 3. Diffuse airspace infiltrates involving the right upper lobe. 4. Bronchovascular thickening along the right hilum with enlarged right hilar and subcarinal lymph nodes. These are nonspecific but may be reactive. Neoplasm not entirely excluded. The EKG revealed Sinus tachycardia with possible left atrial enlargement. Features of LVH. Right ventricular conduction delay. Nonspecific IVCD. A&P Assessment and plan (1) Acute systolic heart failure: Patient may be carefully treated with IV diuresis. Also may add afterload reducing agents. Patient apparently has no previous history for any coronary artery disease or myocardial infarction. No history for history of heart failure. Since the blood pressure is on the low normal side, the medication options are limited Status: Acute (2) Severe aortic valve stenosis: He requires a cardiac catheterization, to further evaluate the LV function and RV function. We also need to rule out any coronary disease, causing the LV dysfunction Status: Acute (3) Acute exacerbation of chronic obstructive pulmonary disease: Management as per the primary Status: Acute (4) Cardiomyopathy as manifestation of underlying disease: Etiology of the LV dysfunction is not clear. after reviewing the cardiac catheterization data, further management decisions will be made Status: Acute (5) Hemoptysis: Patient had some blood-tinged sputum. This could be related to underlying pneumonia. Seems to no recurrence. This needs to be closely monitored. Status: Acute Additional A&P Information Other problems are Leukocytosis, etiology? Possible pneumonia Renal insufficiency After reviewing the above and also based on the patient's clinical progress, further recommendations will be made. Thank you for the opportunity to evaluate this patient and make these recommendations. Coding Level of Care Code Acute Power Nut Runner Operator for [facility] Medical Decision Making High Complexity Diagnoses Acute systolic heart failure I50.21 Severe aortic valve stenosis I35.0 Acute exacerbation of chronic obstructive pulmonary disease J44.1 Cardiomyopathy as manifestation of underlying disease I43 Hemoptysis R04.2 Time Spent (min) 60
--- NOTE | 2020-03-29 17:00 | PC.NURSE ---
Rcvd message from Dr Murphy stating patient is COVID negative and can come off isolation.
[2020-03-30] VITALS (13 sets, daily range): BP systolic 86–125; BP diastolic 49–88; PULSE 67–98; RESP 18–22; TEMP 36.4–37.1; O2SAT 90–96
--- NOTE | 2020-03-30 06:00 | XRR_ITS ---
PROCEDURE INFORMATION: Exam: XR Chest, 1 View Exam date and time: 03/30/2020 5:20 AM Age: 64 years old Clinical indication: Condition or disease; Lung condition and disease; Pneumonia and other: Chf; Shortness of breath; Additional info: Hypoxia, pneumonia, chf TECHNIQUE: Imaging protocol: XR of the chest Views: 1 view. COMPARISON: CR XR chest 1V portable [id number] 03/28/2020 8:52 AM FINDINGS: Lungs: There is prominent bilateral pulmonary consolidation that is worse on the left side and especially in the right upper lung lobe and left upper lobe and lingula. These infiltrates have worsened since previous study especially in the left lung. Pleural space: Small effusion blunts the right costophrenic angle. Heart/Mediastinum: The cardiac silhouette is enlarged but unchanged. There is calcification of the aortic arch. Bones/joints: Unremarkable. XR/XR chest 1V portable [id number] IMPRESSION: Worsening bilateral pneumonia.
[2020-03-30] MEDS: albuterol 8 gm MDI 2 PUFF INHALATION ×4 (08:36→21:25)
--- NOTE | 2020-03-30 09:03 | PC.RESP ---
SMOKING CESSATION AND PULMONARY REHAB INFORMATION SENT TO PATIENT.
[2020-03-30] MEDS: FUROsemide 10 mg/mL SDV 4mL 40 MG IVP (09:12)
[2020-03-30] MEDS: pantoprazole DR 40 mg Tablet PO (09:12)
[2020-03-30] MEDS: metoprolol tartrate 25 mg Tablet PO ×2 (09:12→17:09)
[2020-03-30] MEDS: potassium chloride ER 10 mEq Tablet PO (09:12)
[2020-03-30] MEDS: predniSONE 20 mg Tablet 40 MG PO (09:12)
[2020-03-30] MEDS: gabapentin 300 mg Capsule PO ×4 (09:12→20:50)
[2020-03-30] MEDS: lisinopril 2.5 mg Tablet PO (09:12)
[2020-03-30] MEDS: levofloxacin-dextrose 5 % 750 MG/150 ML PREMIX 100 MG IV (09:13)
[2020-03-30 09:29] LABS: Basophils % 0.1 %; Hemoglobin 13.2 g/dL (11.7-16.6); Lymphocytes # 0.9 10^3/uL (0.8-4.8); Lymphocytes % 3.9 %; Mean Corpuscular HGB Conc 31.4 g/dL (30.0-36.0); Mean Corpuscular Hemoglobin 28.6 pg (28.0-34.0); Mean Corpuscular Volume 91.1 fL (80-94); Mean Platelet Volume 11.1 fL (7.4-10.4); Monocytes # 1.4 10^3/uL (0.2-0.9); Monocytes % 6.2 %; Neutrophils # 19.39 10^3/uL (1.8-7.7); Neutrophils % 89.1 %; Nucleated Red Blood Cells % 0 %; Platelet Count 336 10^3/cmm (130-400); Red Blood Count 4.61 10^6/uL (4.1-5.3); Red Cell Distribution Width 13.7 % (12.1-15.1); White Blood Count 21.8 10^3/uL (4.0-10.0)
--- NOTE | 2020-03-30 09:36 | P.PN_ITS ---
Subjective Subjective: Interval history: Patient awake in bed at time of exam. He reported that his cough and sputum production have improved. He reports that he feels that he is moving more air. Discussed with patient again about concern for congestive heart failure and severe aortic stenosis. He stated that he would like to have further evaluation for aortic valve replacement. Vitals/I&O/Wt Last Vital Signs Temp 97.9 F 03/30/20 07:27 Pulse 98 03/30/20 08:38 Resp 20 H 03/30/20 08:38 BP 121/65 03/30/20 07:27 Pulse Ox 92 03/30/20 08:38 03/29/20 03/30/20 03/30/20 22:59 06:59 14:59 Intake Total 600 / 1390 240 / 240 Output Total 700 / 1300 Balance -100 / 90 240 / 240 Weight last 48 hrs Weight 80.306 kg Physical Exam Const: COMMON NORMALS: patient oriented x3 and alert GENERAL APPEARANCE: cooperative ORIENTATION/CONSCIOUSNESS: Yes awake, Yes oriented to person, Yes oriented to place and Yes oriented to time HENMT: COMMON NORMALS: normocephalic and atraumatic HEAD & SCALP: normocephalic and atraumatic Eye: COMMON NORMALS: Equal, round and reactive pupils present PUPIL: Yes Equal, round and reactive pupils present Neck/C-Spine: COMMON NORMALS: supple GENERAL: Yes normal visual inspection Resp: EFFORT & INSPECTION: Yes tachypneic, Yes labored, Yes Actively coughing and Yes uses accessory muscles AUSCULTATION: no rhonchi and no wheezes OTHER: Diminished breath sounds bilaterally with prolonged expiratory phase, improved air movement today with expiratory wheezing bilaterally Cardio: COMMON NORMALS: regular rhythm RATE: tachycardic RHYTHM: regular rhythm OTHER: distant heart sounds, systolic murmur GI: COMMON NORMALS: Soft to palpation and non-tender INSPECTION: No abdominal distension AUSCULTATION: Yes normoactive bowel sounds PALPATION: Yes Soft to palpation Extremity: COMMON NORMALS: no calf tenderness NARRATIVE EXTREMITY EXAM: Clubbing present in the fingers Neuro: COMMON NORMALS: patient oriented x3, CN's II-XII intact bilaterally, moves all extremities and no focal motor deficits SENSORIUM/ORIENTATION: Yes alert, Yes oriented to person, Yes oriented to place and Yes oriented to time SPEECH: speech normal Psych: COMMON NORMALS: cooperative OTHER: Patient remains restless Skin: COMMON NORMALS: no rashes or lesions noted GENERAL SKIN EXAM: no r ashes or lesions noted Data : 03/30/20 09:13 03/29/20 05:11 Micro: Microbiology 03/28/20 23:31 Gram Stain - Final Sputum - Expectorated Sputum 03/28/20 09:24 Blood Culture - Preliminary Blood NEGATIVE TO DATE 03/28/20 09:24 Blood Culture - Preliminary Blood NEGATIVE TO DATE A&P Assessment and plan (1) Pneumonia: Continue Levaquin 750mg daily RTAT, oxygen per protocol We will follow up with sputum cultures. Patient reports improved symptoms. COVID-19 testing negative x2 Status: Acute (2) COPD (chronic obstructive pulmonary disease): With acute exacerbation, continue on Levaquin, received 3 doses of Solu- Medrol, and remains on prednisone 40 mg daily at this time We will discuss with pulmonology today due to bronchovascular thickening with question of neoplasm Status: Acute (3) Hemoptysis: CTA showing bronchovascular thickening along the right hilum with enlarged right hilar and subcarinal lymph nodes, may be reactive due to pneumonia, neopla sm cannot be excluded would recommend close outpatient follow-up We will discuss with pulmonology today as noted above. Status: Acute Additional A&P Information New diagnosis of combined CHF: Diffuse hypokinesis, LVEF of 35% with grade 3 diastolic dysfunction and severe pulmonary hypertension. Lasix given again today but will hold on further dosing, started on low-dose beta-jason, JENY inhibitor, cardiology consultation. Severe aortic stenosis: Cardiology consultation, this is new diagnosis for patient, denies any history of valvular heart disease Continue home gabapentin for peripheral neuropathy COVID-19 testing negative x2 DVT prophylaxis: SCDs, no pharmacologic prophylaxis due to concern for hemoptysis Diet: 2 g sodium restriction CODE STATUS: Full code, this was discussed with the patient on admission Attestations Medical Necessity Statement*: Patient requires hospitalization due to pneumonia, COPD, hemoptysis, new diagnosis of combined CHF and severe aortic stenosis. Coding Level of Care Code Acute Field Specialist for [facility] Fwd Diagnoses Pneumonia J18.9 COPD (chronic obstructive pulmonary disease) J44.9 Hemoptysis R04.2
[2020-03-30 09:45] LABS: Alanine Aminotransferase 56 U/L (0-41); Albumin Level 3.1 g/dL (3.5-5.2); Alkaline Phosphatase 77 IU/L (40-130); Anion Gap 17.3 (5-19); Aspartate Amino Transferase 30 U/L (0-40); Blood Urea Nitrogen 71 mg/dL (8-23); Calcium 8.7 mg/dL (8.5-10.5); Carbon Dioxide 23 mmol/L (22-29); Chloride 99 mmol/L (98-107); Globulin 2.5 g/dL (1.3-4.6); Glomerular Filtration Rate 31.8 mL/min (90-130); Glucose 138 mg/dL (65-115); Osmolality Calculated 303 mOsm/kg (285-295); Potassium 4.3 mmol/L (3.5-5.1); Sodium 135 mmol/L (136-145); Total Bilirubin 0.5 mg/dL (0.15-1.2); Total Protein 5.6 g/dL (6.6-8.7)
[2020-03-30 11:33] LABS: Coronavirus Lab Test PTC Negative
--- NOTE | 2020-03-30 15:36 | PC.NURSE ---
I reported the low bp to the nurse 86/49
--- NOTE | 2020-03-30 17:14 | PM.PN ---
Subjective Subjective: Interval history: Patient is feeling better. Still has shortness of breath with activities. The white cell count is still elevated. No fever or chills. No severe cough. No abdominal pain or dysuria. No other specific complaints. Medications: Reviewed: Yes Medication Review Details: Current Medications Acetaminophen (Tylenol) 650 mg PO Q6H PRN PRN Reason: Mild/Mod Pain Or Temp >/= 101 Hydrocodone Bitart/Acetaminophen (Paicines 5-325 Mg) 1 tab PO Q4H PRN PRN Reason: MODERATE TO SEVERE PAIN Albuterol Sulfate (Ventolin) 2 puff INHALATION Q4H.RESPIRATORY PRN PRN Reason: SHORTNESS OF BREATH Last Admin: 03/30/20 14:15 Dose: 2 puff Documented by: Gabapentin (Neurontin) 300 mg PO QID [facility] Last Admin: 03/30/20 17:09 Dose: 300 mg Documented by: Levofloxacin/Dextrose (Levaquin-D5w) 750 mg in 150 mls @ 100 mls/hr IV Q24H [facility]; Protocol Last Admin: 03/30/20 09:13 Dose: 100 mls/hr Documented by: Lisinopril (Prinivil) 2.5 mg PO DAILY [facility] Last Admin: 03/30/20 09:12 Dose: 2.5 mg Documented by: Lorazepam (Ativan) 0.25 mg PO TID PRN PRN Reason: ANXIETY Metoprolol Tartrate (Lopressor) 25 mg PO BID [facility] Last Admin: 03/30/20 17:09 Dose: 25 mg Documented by: Naloxone HCl (Narcan) 0.1 mg IVP Q2M PRN PRN Reason: OPIATERV Ondansetron HCl (Zofran) 4 mg IVP Q6H PRN PRN Reason: NAUSEA AND VOMITING Pantoprazole Sodium (Protonix) 40 mg PO DAILY [facility] Last Admin: 03/30/20 09:12 Dose: 40 mg Documented by: Prednisone (Prednisone) 40 mg PO DAILY [facility] Last Admin: 03/30/20 09:12 Dose: 40 mg Documented by: Vitals/I&O/Wt Last Vital Signs Temp 97.7 F 03/30/20 15:36 Pulse 80 03/30/20 15:36 Resp 18 03/30/20 15:36 BP 86/49 03/30/20 15:36 Pulse Ox 93 03/30/20 15:36 03/30/20 03/30/20 03/30/20 06:59 14:59 22:59 Intake Total 480 / 480 Output Total 1300 / 1300 Balance -820 / -820 Weight last 48 hrs Weight 177 lb 0.7 oz Physical Exam Narrative: EXAM NARRATIVE: GENERAL: The patient is alert and oriented times three. Not in any acute distress. HEENT: No significant pallor, icterus or lymphadenopathy. . Oral cavity: There are no mucous membrane lesions. NECK: Trachea appears to be central. No masses noted. No JVD or thyromegaly appreciated. No carotid bruit. RESPIRATORY: Chest is symmetrical. No intercostals muscle retraction or any accessory muscle activation. There is no chest wall tenderness. Breath sounds are heard bilaterally. Expiratory wheezes bilaterally ;no evidence of consolidation BREASTS: Deferred. HEART: The PMI is in the 5th left intercostals space just in the midclavicular line. No palpable precordial events. S1 and S2 are normal. No S3 or S4 heard. No pericardial rub or any click heard. Ejection systolic murmur of grade 4/6 in the aortic area with a transmission to both carotids. No diastolic murmurs. ABDOMEN: No vessel pulsations or distention. No tenderness. No organomegaly appreciated. No abdominal bruit. Bowel sounds are normally heard. : Deferred. RECTAL: Deferred. LYMPHATIC: No lymphadenopathy noted in the neck or groin. EXTREMITIES: No severe edema or cyanosis. Peripheral pulses are weak bilaterally. MUSCULOSKELETAL: No acute joint deformities or swelling. SKIN: There are no significant scars or skin rash noted. NEUROPSYCHIATRIC: The patient is alert and oriented x3.. The higher functions are grossly within normal limits. Appears to have some intentional tremor Data : 03/31/20 05:04 03/31/20 05:04 Micro: Microbiology 03/28/20 23:31 Gram Stain - Final Sputum - Expectorated Sputum Sputum Culture - Preliminary A&P Assessment and plan (1) Acute systolic heart failure: Patient may be carefully treated with IV diuresis. Also may add afterload reducing agents. Patient apparently has no previous history for any coronary artery disease or myocardial infarction. No history for history of heart failure. Since the blood pressure is on the low normal side, the medication options are limited Status: Acute (2) Severe aortic valve stenosis: Patient may benefit from aortic valve intervention. Because of the LV dysfunction, he requires a cardiac colorization, to rule out any underlying coronary artery disease. We also need to evaluate his right heart pressures. Once the kidney function gets stable, we may consider this. Status: Acute (3) Acute exacerbation of chronic obstructive pulmonary disease: Management as per the primary Status: Acute (4) Cardiomyopathy as manifestation of underlying disease: Etiology of the LV dysfunction is not clear. after reviewing the cardiac catheterization data, further management decisions will be made Status: Acute (5) Hemoptysis: Patient had some blood-tinged sputum. This could be related to underlying pneumonia. Seems to no recurrence. This needs to be closely monitored. Status: Acute (6) Acute kidney injury superimposed on chronic kidney disease: The hypotension and diuresis might have caused the acute elevation of BUN/creatinine. Agree with holding off on the Lasix and any blood pressure lowering medications.. Status: Acute Additional A&P Information Other problems are Leukocytosis, etiology? Possible pneumonia Renal insufficiency Based on the patient's clinical progress, further recommendations will be made. Attestations Medical Necessity Statement*: Patient requires continued hospital stay for close monitoring and further management Coding Level of Care Code Acute Drop [facility] for [facility] Diagnoses Acute systolic heart failure I50.21 Severe aortic valve stenosis I35.0 Acute exacerbation of chronic obstructive pulmonary disease J44.1 Cardiomyopathy as manifestation of underlying disease I43 Hemoptysis R04.2 Acute kidney injury superimposed on chronic kidney disease N17.9; N18.9
--- NOTE | 2020-03-30 17:43 | PM.CONSULT ---
Providers/Reason For Consult Consulting Physican/Specialty*: PATRICK ROD MD / Pulmonary Critical Care Reason for Consult*: Hemoptysis - possible lung malignancy Attending Physician: Salud Murphy DO Primary Care Provider: Hubert Cifuentes History of Present Illness History of Present Illness HPI & Clinical Course so far: Solo Ryan is a 64 year old male with a past medical history of peripheral neuropathy and tobacco abuse that presented to the emergency department today for increasing shortness of breath. Stated that his symptoms have been progressive over the past 3 to 4 days. He reports occasional chills at home, no fevers. Denies any sick contacts. Patient denies any known exposure to anyone under investigation or positive for COVID-19. He denies any cardiac history. Reports that he has been coughing up blood-tinged sputum over the past 3 to 4 days, this is new. He denies being on any oxygen at home, denies using any inhalers at home. Patient reports no recent hospitalizations, no recent antibiotic usage, no recent steroid usage. Patient was seen and evaluated in the emergency department noted to have concern for hemoptysis, hypoxia, tachycardia with concern for pneumonia and also concern for viral pneumonia. Patient was admitted for further evaluation and treatment. Investigations so far COVID-19 PCR negative, CT angiogram reported no evidence of PE, moderate right pleural effusion with compressive atelectasis in the right lower lobe, diffuse airspace infiltrates involving right upper lobe, bronchovascular thickening along right hilum with enlarged right hilar and subcarinal lymph nodes, may be reactive, neoplasm not entirely excluded. With concern for community-acquired pneumonia patient was started on Levaquin and prednisone. Labs revealed elevated white count with neutrophilia (infection versus steroids). Also initial BNP [id number] and subsequent TTE on 03/28/2020 showed diffuse hypokinesia of left ventricle with EF 35%, moderate left atrial hypertrophy, grade 3 diastolic dysfunction, severely elevated filling pressures, severe aortic valve stenosis with mean gradient 31, aortic valve area 0.49 cm?, moderate aortic valve regurgitation, severe pulmonary hypertension with peak PAP 85 and interatrial septum appears to be bulging to the right with mild MVR, [place], TR. Initially Lasix was given but due to worsening renal functions Lasix was held. Pulmonary was consulted due to concern for bronchovascular thickening along the right hilum with enlarged right hilar and subcarinal lymph nodes with presenting complaint of hemoptysis-if bronchoscopy is feasible to get a biopsy and diagnosis to rule out malignancy. Review of Systems General: Reports: 10 or more systems reviewed and unremarkable except in HPI and below Meds/Allergies Home Medications and Allergies Home Medications Medication Instructions Recorded Confirmed Last Taken Type acetaminophen [Tylenol] 500 mg PO QID PRN 03/28/20 03/28/20 Unknown History gabapentin 250 mg PO QID 03/28/20 03/28/20 03/28/20 History Allergies Allergy/AdvReac Type Severity Reaction Status Date / Time No Known Allergies Allergy Verified 03/28/20 08:48 Current Medications Current Medications Generic Name Dose Route Start Last Admin Trade Name Freq PRN Reason Stop Dose Admin Albuterol Sulfate 2 puff 03/28/20 16:00 03/30/20 14:15 Ventolin INHALATION 2 puff Q4H.RESPIRATORY PRN Administration SHORTNESS OF BREATH Gabapentin 300 mg 03/28/20 17:00 03/30/20 17:09 Neurontin PO 300 mg QID JOSÉ ANTONIO Administration Levofloxacin/Dextrose 750 mg in 150 mls @ 100 mls/hr 03/29/20 10:30 03/30/20 09:13 Levaquin-D5w IV 100 mls/hr Q24H JOSÉ ANTONIO Administration Protocol Lisinopril 2.5 mg 03/29/20 09:30 03/30/20 09:12 Prinivil PO 2.5 mg DAILY JOSÉ ANTONIO Administration Metoprolol Tartrate 25 mg 03/29/20 09:00 03/30/20 17:09 Lopressor PO 25 mg BID JOSÉ ANTONIO Administration Pantoprazole Sodium 40 mg 03/29/20 09:00 03/30/20 09:12 Protonix PO 40 mg DAILY JOSÉ ANTONIO Administration Prednisone 40 mg 03/29/20 09:30 03/30/20 09:12 Prednisone PO 40 mg DAILY JOSÉ ANTONIO Administration PFSH Acute PFSH: Medical History Acute systolic heart failure COPD (chronic obstructive pulmonary disease) Peripheral neuropathy Severe aortic valve stenosis Surgical History History of shoulder surgery Family History Father Stroke Social History Smoking and tobacco status: current some day smoker cigarettes Packs smoked per day: 1 Years cigarettes smoked: 50 Alcohol intake: never Substance/Drug Use: never Vitals/I&O/Wt Last Vital Signs Temp 97.7 F 03/30/20 15:36 Pulse 80 03/30/20 15:36 Resp 18 03/30/20 15:36 BP 86/49 03/30/20 15:36 Pulse Ox 93 03/30/20 15:36 03/30/20 03/30/20 03/30/20 06:59 14:59 22:59 Intake Total 480 / 480 Output Total 1300 / 1300 Balance -820 / -820 Weight last 48 hrs Weight 177 lb 0.7 oz Physical Exam Narrative: EXAM NARRATIVE: General: alert, NAD HEENT: conj clear, EOMI, PERRL, mmm, Neck: supple, no meningismus Heme: no cervical LAP Pulmonary: CTAB, no wheezing, rhonchi, crackles Cardiovascular: rrr, nl s1s2, no mrg Abdomen: soft, nt, nd, no r/g, bs+ Extremities: pulses +, no edema, no c/c : no CVA tenderness Skin: intact, no rash MSK: no back or neck pain Neurologic: grossly intact Data Micro: Micro: Microbiology 03/28/20 23:31 Gram Stain - Final Sputum - Expector ated Sputum Sputum Culture - P reliminary A&P Assessment and plan (1) Acute kidney injury superimposed on chronic kidney disease: Status: Acute (2) Severe aortic valve stenosis: Status: Acute (3) Acute systolic heart failure: Status: Acute (4) Acute exacerbation of chronic obstructive pulmonary disease: Status: Acute (5) Hemoptysis: Status: Acute (6) COPD (chronic obstructive pulmonary disease): Status: Acute Qualifiers: COPD type: unspecified COPD Qualified Code(s): J44.9 - Chronic obstructive pulmonary disease, unspecified (7) Pneumonia: Status: Acute Qualifiers: Pneumonia type: due to unspecified organism Laterality: right Lung location: unspecified part of lung Qualified Code(s): J18.9 - Pneumonia, unspecified organism (8) Smoker: Status: Acute (9) Pulmonary hypertension: Status: Acute (10) Acute respiratory failure with hypoxia: Status: Acute (11) Pleural effusion, right: Status: Acute #Acute hypoxic respiratory failure likely secondary to acute systolic heart failure with severe aortic stenosis -Cannot rule out underlying pneumonia in patient with COPD with history of significant smoking -Patient smokes 1 pack/day for last 50 years -CT showing diffuse airspace opacities in right upper lobe likely pneumonia; could be fluid from acute heart failure -Currently covered with Levaquin for community-acquired pneumonia -So far sputum cultures and bacterial cultures negative: Final results pending -Please send urine Legionella, bacterial antigens, procalcitonin, lactic acid -Currently requiring 4 to 6 L nasal cannula -DuoNeb nebulizations every 4 as needed for shortness of breath -Continue prednisone 40 mg daily and taper as clinically tolerated -With significant aortic stenosis patient needs aortic valve replacement -cardiology following and will decide if patient would benefit from surgery -Meanwhile Lasix if tolerated #Hemoptysis-likely secondary to pneumonia/CHF/bronchovascular thickening suspicious for malignancy on CT #Severe pulmonary hypertension with peak PAP 85 -likely group 2 with severe valvular disease -Can also have group 3 contribution from COPD #Right pleural effusion can be secondary to CHF -if patient does not respond to antibiotics would do thoracentesis and sent for cytology and cultures -Bronchovascular thickening can be due to vascular congestion due to CHF and hilar adenopathy can be secondary to ongoing infection. However in order to rule out malignancy and to do any invasive procedures like EBUS/bronchoscopy guided FNA C to obtain samples at this point of time when patient has an apparent severe aortic valve stenosis with severe pulmonary hypertension poses significant risk of mortality. As this is nonemergent would defer the procedure for now. -Meanwhile cover pneumonia with antibiotics and follow-up with cardiology regarding management of CHF and aortic valve stenosis. Recommendations conveyed to hospitalist covering the patient Medical condition, labs, investigations, medications, counseling regarding medication compliance, side effects, importance of follow-up appointments, smoking-its adverse effects and importance of cessation and plan of care-everything explained in detail to the patient. Patient verbalized understanding and agreed with the plan of care. Additional A&P Information Consult Attestations Medical Necessity Statement: Acute respiratory failure requiring oxygen supplementation secondary to acute systolic CHF and patient with severe pulmonary hypertension due to severe aortic valve stenosis and possible pneumonia with underlying COPD and a chronic smoker Time Spent in Patient Care: (>than 50% of time spent in counselling and/or direct pt care on unit). Coding Level of Care Code Acute [employer] for [facility] Diagnoses Acute kidney injury superimposed on chronic kidney disease N17.9; N18.9 Severe aortic valve stenosis I35.0 Acute systolic heart failure I50.21 Acute exacerbation of chronic obstructive pulmonary disease J44.1 Hemoptysis R04.2 COPD (chronic obstructive pulmonary disease) J44.9 COPD type: unspecified COPD Pneumonia J18.9 Pneumonia type: due to unspecified organism Laterality: right Lung location: unspecified part of lung Smoker F17.200 Pulmonary hypertension I27.20 Acute respiratory failure with hypoxia J96.01 Pleural effusion, right J90
[2020-03-30 20:20] LABS: Lactate (Lactic Acid level) 1.9 mmol/L (0.5-2.2)
[2020-03-30 21:58] LABS: Procalcitonin 0.23 ng/mL (0-0.5)
[2020-03-31] VITALS (10 sets, daily range): BP systolic 95–118; BP diastolic 55–73; PULSE 62–84; RESP 16–28; TEMP 35.8–36.8; O2SAT 90–96
[2020-03-31 06:13] LABS: Basophils % 0.1 %; Hematocrit 46.4 % (42.0-52.0); Hemoglobin 14.6 g/dL (11.7-16.6); Lymphocytes # 1.2 10^3/uL (0.8-4.8); Mean Corpuscular HGB Conc 31.5 g/dL (30.0-36.0); Mean Corpuscular Hemoglobin 28.9 pg (28.0-34.0); Mean Corpuscular Volume 91.9 fL (80-94); Mean Platelet Volume 11.4 fL (7.4-10.4); Monocytes # 1.8 10^3/uL (0.2-0.9); Neutrophils # 16.77 10^3/uL (1.8-7.7); Neutrophils % 84.3 %; Nucleated Red Blood Cells % 0 %; Platelet Count 338 10^3/cmm (130-400); Red Blood Count 5.05 10^6/uL (4.1-5.3); Red Cell Distribution Width 13.9 % (12.1-15.1); White Blood Count 19.9 10^3/uL (4.0-10.0)
[2020-03-31 06:35] LABS: Alanine Aminotransferase 72 U/L (0-41); Albumin Level 3.5 g/dL (3.5-5.2); Alkaline Phosphatase 94 IU/L (40-130); Anion Gap 17.8 (5-19); Aspartate Amino Transferase 34 U/L (0-40); Calcium 8.9 mg/dL (8.5-10.5); Carbon Dioxide 25 mmol/L (22-29); Chloride 98 mmol/L (98-107); Globulin 2.6 g/dL (1.3-4.6); Glomerular Filtration Rate 30.1 mL/min (90-130); Glucose 122 mg/dL (65-115); Osmolality Calculated 309 mOsm/kg (285-295); Potassium 4.8 mmol/L (3.5-5.1); Sodium 136 mmol/L (136-145); Total Bilirubin 0.5 mg/dL (0.15-1.2); Total Protein 6.1 g/dL (6.6-8.7)
[2020-03-31 06:39] LABS: Blood Urea Nitrogen 86 mg/dL (8-23)
--- NOTE | 2020-03-31 07:56 | P.PN_ITS ---
Subjective Subjective: Interval history: Patient is feeling better. However the BUN and creatinine seems to be going up. For the patient, he is not taking enough oral fluids. No chest pain. Medications: Reviewed: Yes Medication Review Details: Current Medications Acetaminophen (Tylenol) 650 mg PO Q6H PRN PRN Reason: Mild/Mod Pain Or Temp >/= 101 Hydrocodone Bitart/Acetaminophen ([place] 5-325 Mg) 1 tab PO Q4H PRN PRN Reason: MODERATE TO SEVERE PAIN Albuterol Sulfate (Ventolin) 2 puff INHALATION Q4H.RESPIRATORY PRN PRN Reason: SHORTNESS OF BREATH Last Admin: 03/30/20 21:25 Dose: 2 puff Documented by: Gabapentin (Neurontin) 300 mg PO QID [facility] Last Admin: 03/30/20 20:50 Dose: 300 mg Documented by: Levofloxacin/Dextrose (Levaquin-D5w) 750 mg in 150 mls @ 100 mls/hr IV Q48H [facility]; Protocol Lisinopril (Prinivil) 2.5 mg PO DAILY [facility] Last Admin: 03/30/20 09:12 Dose: 2.5 mg Documented by: Lorazepam (Ativan) 0.25 mg PO TID PRN PRN Reason: ANXIETY Metoprolol Tartrate (Lopressor) 25 mg PO BID [facility] Last Admin: 03/30/20 17:09 Dose: 25 mg Documented by: Naloxone HCl (Narcan) 0.1 mg IVP Q2M PRN PRN Reason: OPIATERV Ondansetron HCl (Zofran) 4 mg IVP Q6H PRN PRN Reason: NAUSEA AND VOMITING Pantoprazole Sodium (Protonix) 40 mg PO DAILY [facility] Last Admin: 03/30/20 09:12 Dose: 40 mg Documented by: Prednisone (Prednisone) 40 mg PO DAILY [facility] Last Admin: 03/30/20 09:12 Dose: 40 mg Documented by: Vitals/I&O/Wt Last Vital Signs Temp 96.5 F L 03/31/20 04:00 Pulse 64 03/31/20 04:00 Resp 16 03/31/20 04:00 BP 116/70 03/31/20 04:00 Pulse Ox 93 03/31/20 04:00 03/30/20 03/31/20 03/31/20 22:59 06:59 14:59 Intake Total 360 / 840 240 / 1080 Balance 360 / -460 240 / -220 Weight last 48 hrs Weight 173 lb 2 oz Weight 186 lb Weight 177 lb 0.7 oz Physical Exam Narrative: EXAM NARRATIVE: GENERAL: The patient is alert and oriented times three. Not in any acute distress. HEENT: Minimal pallor, no icterus or lymphadenopathy. . Oral cavity: There are no mucous membrane lesions. NECK: Trachea appears to be central. No masses noted. No JVD or thyromegaly appreciated. No carotid bruit. RESPIRATORY: Chest is symmetrical. No intercostals muscle retraction or any accessory muscle activation. There is no chest wall tenderness. Breath sounds are heard bilaterally. Expiratory wheezes bilaterally ;no evidence of consolidation BREASTS: Deferred. HEART: The PMI is in the 5th left intercostals space just in the midclavicular line. No palpable precordial events. S1 and S2 are normal. No S3 or S4 heard. No pericardial rub or any click heard. Ejection systolic murmur of grade 4/6 in the aortic area with a transmission to both carotids. No diastolic murmurs. ABDOMEN: No vessel pulsations or distention. No tenderness. No organomegaly appreciated. No abdominal bruit. Bowel sounds are normally heard. : Deferred. RECTAL: Deferred. LYMPHATIC: No lymphadenopathy noted in the neck or groin. EXTREMITIES: No severe edema or cyanosis. Peripheral pulses are weak bilaterally. MUSCULOSKELETAL: No acute joint deformities or swelling. SKIN: There are no significant scars or skin rash noted. NEUROPSYCHIATRIC: The patient is alert and oriented x3.. The higher functions are grossly within normal limits. Appears to have some intentional tremor Data : 03/31/20 05:04 03/31/20 05:04 Other Labs: Laboratory Last Values WBC 19.9 10^3/uL (4.0-10.0) H 03/31/20 05:04 RBC 5.05 10^6/uL (4.1-5.3) 03/31/20 05:04 Hgb 14.6 g/dL (11.7-16.6) 03/31/20 05:04 Hct 46.4 % (42.0-52.0) 03/31/20 05:04 MCV 91.9 fL (80-94) 03/31/20 05:04 MCH 28.9 pg (28.0-34.0) 03/31/20 05:04 MCHC 31.5 g/dL (30.0-36.0) 03/31/20 05:04 RDW 13.9 % (12.1-15.1) 03/31/20 05:04 Plt Count 338 10^3/cmm (130-400) 03/31/20 05:04 MPV 11.4 fL (7.4-10.4) H 03/31/20 05:04 Neut % (Auto) 84.3 % 03/31/20 05:04 Lymph % (Auto) 6.0 % 03/31/20 05:04 [place] % (Auto) 9.0 % 03/31/20 05:04 Eos % (Auto) 0.0 % 03/31/20 05:04 Baso % (Auto) 0.1 % 03/31/20 05:04 Neut # (Auto) 16.77 10^3/uL (1.8-7.7) H 03/31/20 05:04 Lymph # (Auto) 1.2 10^3/uL (0.8-4.8) 03/31/20 05:04 [place] # (Auto) 1.8 10^3/uL (0.2-0.9) H 03/31/20 05:04 Eos # (Auto) 0.0 10^3/uL (0.0-0.8) 03/31/20 05:04 Baso # (Auto) 0.0 10^3/uL (0.0-0.1) 03/31/20 05:04 Nucleated RBC % (auto) 0 % 03/31/20 05:04 Nucleated RBCs # 0.0 /100WBC 03/31/20 05:04 PT 14.90 SECONDS (12.1-14.9) 03/28/20 15:35 INR 1.13 (0.8-1.2) 03/28/20 15:35 Fibrinogen 603 mg/dL (174-498) H 03/28/20 08:22 D-Dimer 0.93 ug/mIFEU (0-0.59) H 03/28/20 08:22 Specimen Type Arterial 03/28/20 08:56 Sample Site Brachial, right 03/28/20 08:56 ABG pH 7.43 (7.35-7.45) 03/28/20 08:56 ABG pCO2 33.8 mmHg (35-45) L 03/28/20 08:56 ABG pO2 62.8 mmHg (80.0-100.0) L 03/28/20 08:56 ABG HCO3 22.4 mmol/L (22-26) 03/28/20 08:56 ABG Base Excess -1.2 mmol/L (-2.0-2.0) 03/28/20 08:56 [place] Test N/a 03/28/20 08:56 Hematocrit 43.1 % (42-52) 03/28/20 08:56 O2 Delivery Device Nc 03/28/20 08:56 O2 Liters/Min 2.0 % 03/28/20 08:56 FiO2 28.0 % 03/28/20 08:56 Lab Engineer ID [facility] 03/28/20 08:56 Sodium 136 mmol/L (136-145) 03/31/20 05:04 Potassium 4.8 mmol/L (3.5-5.1) 03/31/20 05:04 Chloride 98 mmol/L (98-107) 03/31/20 05:04 Carbon Dioxide 25 mmol/L (22-29) 03/31/20 05:04 Anion Gap 17.8 (5-19) 03/31/20 05:04 BUN 86 mg/dL (8-23) H* 03/31/20 05:04 Creatinine 2.2 mg/dL (0.7-1.2) H 03/31/20 05:04 GFR Calculation 30.1 mL/min (90-130) L 03/31/20 05:04 Glucose 122 mg/dL (65-115) H 03/31/20 05:04 Calculated Osmolality 309 mOsm/kg (285-295) H 03/31/20 05:04 Lactic Acid 1.5 mmol/L (0.5-2.2) 03/28/20 09:24 Lactate 1.9 mmol/L (0.5-2.2) 03/30/20 19:57 Calcium 8.9 mg/dL (8.5-10.5) 03/31/20 05:04 Ferritin 340 ng/mL (30-400) 03/28/20 08:22 Total Bilirubin 0.5 mg/dL (0.15-1.2) 03/31/20 05:04 AST 34 U/L (0-40) 03/31/20 05:04 ALT 72 U/L (0-41) H 03/31/20 05:04 Alkaline Phosphatase 94 IU/L (40-130) 03/31/20 05:04 Lactate Dehydrogenase 321 U/L (135-225) H 03/28/20 08:22 C-Reactive Protein 128.3 mg/L (0.0-4.9) H 03/28/20 08:22 NT-Pro-B Natriuret Pep 35873 pg/mL (0-125) H 03/28/20 08:22 Total Protein 6.1 g/dL (6.6-8.7) L 03/31/20 05:04 Albumin 3.5 g/dL (3.5-5.2) 03/31/20 05:04 Globulin 2.6 g/dL (1.3-4.6) 03/31/20 05:04 Triglycerides 89 mg/dL (0-150) 03/29/20 05:11 Cholesterol 149 mg/dL (0-200) 03/29/20 05:11 LDL Cholesterol, Calc 96 mg/dL (50-129) 03/29/20 05:11 HDL Cholesterol 35 mg/dL (60-100) L 03/29/20 05:11 LDL/HDL Ratio 2.74 RATIO (0.00-3.22) 03/29/20 05:11 Cholesterol/HDL Ratio 4.26 mg/dL (1.0-5.00) 03/29/20 05:11 Procalcitonin 0.23 ng/mL (0-0.5) 03/30/20 19:57 Urine Opiates Screen Negative ng/mL (Negative) 03/28/20 02:10 Ur Barbiturates Screen Negative ng/mL (Negative) 03/28/20 02:10 Ur Phencyclidine Scrn Negative ng/mL (Negative) 03/28/20 02:10 Ur Amphetamines Screen Negative ng/mL (Negative) 03/28/20 02:10 U Benzodiazepines Scrn Negative ng/mL (Negative) 03/28/20 02:10 Urine Cocaine Screen Negative ng/mL (Negative) 03/28/20 02:10 U Marijuana (THC) Screen Positive ng/mL (Negative) H 03/28/20 02:10 Nasal/Oral COVID-19 PCR Negative 03/28/20 11:11 SARS-CoV-2 Ag (Rapid) Negative (Negative) 03/28/20 08:56 A&P Assessment and plan (1) Acute systolic heart failure: Patient is off the diuretics now. He might be behind in fluid. May be carefully on some IV fluid. Status: Acute (2) Severe aortic valve stenosis: Patient may benefit from aortic valve intervention. Because of the LV dysfunction, he requires a cardiac colorization, to rule out any underlying coronary artery disease. We also need to evaluate his right heart pressures. Once the kidney function gets stable, we may consider this. Status: Acute (3) Acute exacerbation of chronic obstructive pulmonary disease: Management as per the primary Status: Acute (4) Cardiomyopathy as manifestation of underlying disease: Etiology of the LV dysfunction is not clear. after reviewing the cardiac catheterization data, further management decisions will be made Status: Acute (5) Hemoptysis: Has not had any recurrence. Status: Acute (6) Acute kidney injury superimposed on chronic kidney disease: The worsening BUN and creatinine levels could be multifactorial. Severe aortic valve stenosis, hypotension, diuresis, JENY inhibitor, etc. are contributing factors. I may hold off diuretic diuresis at this time. Also will discontinue the lisinopril. May give some IV fluid carefully. Repeat BMP in the morning. Status: Acute Additional A&P Information Other problems are Leukocytosis, etiology? Seems to be coming down Possible pneumonia Renal insufficiency Based on the patient's clinical progress, further recommendations will be made. 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
[2020-03-31] MEDS: albuterol 8 gm MDI 2 PUFF INHALATION ×3 (08:12→20:58)
--- NOTE | 2020-03-31 09:06 | DCPLANNER ---
Pg 2 of IM explained to and signed by pt. No questions, copy provided, he appreciates the visit and explanation.
--- NOTE | 2020-03-31 09:18 | PM.PN ---
Subjective Subjective: Interval history: Patient sitting at the side of bed upon entering the room today. Reports that his breathing continues to feel improved. Continues to have cough with sputum production, stated that the amount of blood has decreased. Patient denies any chest pain Vitals/I&O/Wt Last Vital Signs Temp 97.6 F 03/31/20 08:00 Pulse 63 03/31/20 08:18 Resp 20 H 03/31/20 08:18 BP 107/64 03/31/20 08:00 Pulse Ox 94 03/31/20 08:18 03/30/20 03/31/20 03/31/20 22:59 06:59 14:59 Intake Total 360 / 840 240 / 1080 140 / 140 Balance 360 / -460 240 / -220 140 / 140 Weight last 48 hrs Weight 78.528 kg Weight 84.368 kg Weight 80.306 kg Physical Exam Const: COMMON NORMALS: patient oriented x3 and alert GENERAL APPEARANCE: cooperative ORIENTATION/CONSCIOUSNESS: Yes awake, Yes oriented to person, Yes oriented to place and Yes oriented to time HENMT: COMMON NORMALS: normocephalic and atraumatic HEAD & SCALP: normocephalic and atraumatic Eye: COMMON NORMALS: Equal, round and reactive pupils present PUPIL: Yes Equal, round and reactive pupils present Neck/C-Spine: COMMON NORMALS: supple GENERAL: Yes normal visual inspection Resp: EFFORT & INSPECTION: Yes tachypneic, Yes labored, Yes Actively coughing and Yes uses accessory muscles AUSCULTATION: no rhonchi and no wheezes OTHER: Diminished breath sounds bilaterally with prolonged expiratory phase Cardio: COMMON NORMALS: regular rhythm RATE: tachycardic RHYTHM: regular rhythm OTHER: distant heart sounds, systolic murmur GI: COMMON NORMALS: Soft to palpation and non-tender INSPECTION: No abdominal distension AUSCULTATION: Yes normoactive bowel sounds PALPATION: Yes Soft to palpation : COMMON NORMALS: Yes no CVA tenderness BLADDER/KIDNEY EXAM: Yes no CVA tenderness Back/Pelvis: COMMON NORMALS: no CVA tenderness Extremity: COMMON NORMALS: no calf tenderness NARRATIVE EXTREMITY EXAM: Clubbing present in the fingers Neuro: COMMON NORMALS: patient oriented x3, CN's II-XII intact bilaterally, moves all extremities and no focal motor deficits SENSORIUM/ORIENTATION: Yes alert, Yes oriented to person, Yes oriented to place and Yes oriented to time SPEECH: speech normal Psych: COMMON NORMALS: cooperative OTHER: Cooperative, anxious and restless at times Skin: COMMON NORMALS: no rashes or lesions noted GENERAL SKIN EXAM: no rashes or lesions noted Data : 03/31/20 05:04 03/31/20 05:04 Micro: Microbiology 03/28/20 23:31 Gram Stain - Final Sputum - Expectorated Sputum Sputum Culture - Preliminary A&P Assessment and plan (1) Pneumonia: Continue Levaquin 750mg daily RTAT, oxygen per protocol We will follow up with sputum cultures. Patient reports improved symptoms. COVID-19 testing negative x2 Pneumo and Legionella antigen testing pending Status: Acute Qualifiers: Laterality: right Lung location: unspecified part of lung Pneumonia type: due to unspecified organism Qualified Code(s): J18.9 - Pneumonia, unspecified organism (2) COPD (chronic obstructive pulmonary disease): With acute exacerbation, continue on Levaquin, received 3 doses of Solu-Medrol, and remains on prednisone 40 mg daily at this time Appreciate pulmonology consultation. We will hold off on bronchoscopy at this time Status: Acute Qualifiers: COPD type: unspecified COPD Qualified Code(s): J44.9 - Chronic obstructive pulmonary disease, unspecified (3) Hemoptysis: CTA showing bronchovascular thickening along the right hilum with enlarged right hilar and subcarinal lymph nodes, may be reactive due to pneumonia, neoplasm cannot be excluded would recommend close outpatient follow-up Discussion with pulmonology and due to patient's other comorbidities will hold off on bronchoscopy. If effusion remains then will consider thoracentesis Status: Acute Additional A&P Information New diagnosis of combined CHF: Diffuse hypokinesis, LVEF of 35% with grade 3 diastolic dysfunction and severe pulmonary hypertension. Holding Lasix due to worsening renal function. Will follow along with cardiology recommendations. Patient will likely require cardiac cath for further evaluation, however will need to wait until renal function improves. Severe aortic stenosis: Cardiology consultation, this is new diagnosis for patient, denies any history of valvular heart disease Continue home gabapentin for peripheral neuropathy COVID-19 testing negative x2 Acute kidney injury: Appears to be prerenal due to diuresis, holding diuretics at this time and continuing to monitor closely. 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
[2020-03-31] MEDS: predniSONE 20 mg Tablet 40 MG PO (09:26)
[2020-03-31] MEDS: pantoprazole DR 40 mg Tablet PO (09:26)
[2020-03-31] MEDS: metoprolol tartrate 25 mg Tablet PO ×2 (09:26→17:05)
[2020-03-31] MEDS: gabapentin 300 mg Capsule PO ×4 (09:26→21:06)
[2020-03-31] MEDS: sodium chlor 0.9% + KCl 20 mEq 20 MEQ/1,000 ML BAG 75 MEQ IV (09:27)
[2020-03-31] MEDS: LORazepam 0.5 mg Tablet 0.25 MG PO (19:44)
--- NOTE | 2020-03-31 19:46 | PC.NURSE ---
Patient is very anxious and pulled his IV out. Pt says, I'm too anxious to get an IV right now. This nurse administered ordered dose of Ativan 0.25 PO TID PRN. Patient was educated on the importance of having an IV for fluids and medications.
--- NOTE | 2020-03-31 23:20 | PC.NURSE ---
Patient refusing telemetry and IV access. Patient has been agitated and anxious. Doctor notified with orders for Haldol 2mg IM ONCE.
[2020-03-31] MEDS: haloperidol inj 5 mg/mL INJ 1 mL 2 MG IM (23:56)
[2020-04-01] VITALS (10 sets, daily range): BP systolic 104–147; BP diastolic 56–98; PULSE 60–75; RESP 17–24; TEMP 36.4–36.6; O2SAT 90–97
--- NOTE | 2020-04-01 03:00 | PC.NURSE ---
Patient continues to refuse IV placement. Patient is stating I'm going home and getting out of here.
--- NOTE | 2020-04-01 03:37 | PC.NURSE ---
Dr. Stoddard came to the floor to see the patient. Patient agreed to stay to see his doctor today. Patient continues to be anxious. This nurse discussed ordered dose of Geodon to help with his anxiety. Patient agrees to the administration of medication and requested some cereal. Patient is currently sitting on the side of the bed eating his cereal but continues to be anxious.
[2020-04-01] MEDS: ziprasidone 20 mg/mL SDV IM (03:51)
--- NOTE | 2020-04-01 04:11 | PC.NURSE ---
Patient is calm and resting with eyes closed with respirations WNL.
[2020-04-01 05:28] LABS: Basophils % 0.1 %; Hemoglobin 13.6 g/dL (11.7-16.6); Lymphocytes % 6.8 %; Mean Corpuscular HGB Conc 31.6 g/dL (30.0-36.0); Mean Corpuscular Hemoglobin 28.5 pg (28.0-34.0); Mean Platelet Volume 11.4 fL (7.4-10.4); Monocytes # 1.2 10^3/uL (0.2-0.9); Monocytes % 8.2 %; Neutrophils # 12.61 10^3/uL (1.8-7.7); Neutrophils % 84.4 %; Nucleated Red Blood Cells % 0 %; Platelet Count 290 10^3/cmm (130-400); Red Blood Count 4.78 10^6/uL (4.1-5.3); Red Cell Distribution Width 13.6 % (12.1-15.1); White Blood Count 14.9 10^3/uL (4.0-10.0)
--- NOTE | 2020-04-01 05:43 | PC.NURSE ---
Patient trying to get out of bed and took oxygen off. Patient sats at 80%. NC placed on patient with at 5 Liters. Patient is shallow breathing with some retraction. RT notified and assessed patient. Patient is back in bed with NC on 5 liters at 91% and resting well.
[2020-04-01 06:08] LABS: Alanine Aminotransferase 74 U/L (0-41); Albumin Level 3.1 g/dL (3.5-5.2); Alkaline Phosphatase 76 IU/L (40-130); Aspartate Amino Transferase 39 U/L (0-40); Calcium 8.6 mg/dL (8.5-10.5); Carbon Dioxide 21 mmol/L (22-29); Chloride 103 mmol/L (98-107); Globulin 2.4 g/dL (1.3-4.6); Glomerular Filtration Rate 31.8 mL/min (90-130); Glucose 155 mg/dL (65-115); Osmolality Calculated 320 mOsm/kg (285-295); Sodium 138 mmol/L (136-145); Total Bilirubin 0.6 mg/dL (0.15-1.2); Total Protein 5.5 g/dL (6.6-8.7)
[2020-04-01 06:14] LABS: Blood Urea Nitrogen 98 mg/dL (8-23)
--- NOTE | 2020-04-01 08:03 | US_ITS ---
NOTE: Report was unsigned for reason: Order was edited. Original Signature date and time was: 04/01/20 @ 1632 WS: [id number] Bilateral renal ultrasound, 04/01/2020 Clinical Data: [facility]USHRA Comparison: None. Findings: The right kidney measures 12.5 cm x 5.8 cm x 4.7 cm and the left kidney is 9.7 cm x 5.7 cm x 5.6 cm. There are no cysts, masses or hydronephrosis. The renal cortical margin is normal. No renal calculi are seen. The abdominal aorta and inferior vena cava show no vascular abnormalities. The bladder was scanned and was not remarkable. [facility] US/US renal BI with PV bladder Impression: Negative bilateral renal ultrasound.
[2020-04-01] MEDS: albuterol 8 gm MDI 2 PUFF INHALATION ×3 (09:00→21:10)
--- NOTE | 2020-04-01 09:29 | PM.PN ---
Subjective Subjective: Interval history: Patient is feeling okay. He still has significant shortness of breath with activities. Seem to have some tiredness/fatigue. Denies any chills or fever. Has a dry cough. No other specific complaints Medications: Reviewed: Yes Medication Review Details: Current Medications Acetaminophen (Tylenol) 650 mg PO Q6H PRN PRN Reason: Mild/Mod Pain Or Temp >/= 101 Hydrocodone Bitart/Acetaminophen ([employer] 5-325 Mg) 1 tab PO Q4H PRN PRN Reason: MODERATE TO SEVERE PAIN Albuterol Sulfate (Ventolin) 2 puff INHALATION Q4H.RESPIRATORY PRN PRN Reason: SHORTNESS OF BREATH Last Admin: 04/01/20 09:00 Dose: 2 puff Documented by: Gabapentin (Neurontin) 300 mg PO QID [facility] Last Admin: 03/31/20 21:06 Dose: 300 mg Documented by: Levofloxacin/Dextrose (Levaquin-D5w) 750 mg in 150 mls @ 100 mls/hr IV Q48H [facility]; Protocol Albumin Human (Albumin) 25 gm in 100 mls @ 60 mls/hr IV ONCE ONE Stop: 04/01/20 10:09 Last Admin: 04/01/20 08:53 Dose: 60 mls/hr Documented by: Lorazepam (Ativan) 0.25 mg PO TID PRN PRN Reason: ANXIETY Last Admin: 03/31/20 19:44 Dose: 0.25 mg Documented by: Metoprolol Tartrate (Lopressor) 25 mg PO BID [facility] Last Admin: 03/31/20 17:05 Dose: 25 mg Documented by: Naloxone HCl (Narcan) 0.1 mg IVP Q2M PRN PRN Reason: OPIATERV Ondansetron HCl (Zofran) 4 mg IVP Q6H PRN PRN Reason: NAUSEA AND VOMITING Pantoprazole Sodium (Protonix) 40 mg PO DAILY [facility] Last Admin: 03/31/20 09:26 Dose: 40 mg Documented by: Prednisone (Prednisone) 40 mg PO DAILY [facility] Last Admin: 03/31/20 09:26 Dose: 40 mg Documented by: Vitals/I&O/Wt Last Vital Signs Temp 97.9 F 04/01/20 07:40 Pulse 61 04/01/20 09:02 Resp 20 H 04/01/20 09:02 BP 147/90 04/01/20 07:40 Pulse Ox 91 04/01/20 09:02 03/31/20 04/01/20 04/01/20 22:59 06:59 14:59 Intake Total 470 / 610 360 / 970 440 / 440 Balance 470 / 610 360 / 970 440 / 440 Weight last 48 hrs Weight 178 lb 9 oz Weight 173 lb 2 oz Weight 186 lb Physical Exam Narrative: EXAM NARRATIVE: GENERAL: The patient is alert and oriented times three. Not in any acute distress. Somewhat tachypneic HEENT: Minimal pallor, no icterus or lymphadenopathy. . Oral cavity: There are no mucous membrane lesions. NECK: Trachea appears to be central. No masses noted. No JVD or thyromegaly appreciated. No carotid bruit. RESPIRATORY: Chest is symmetrical. No intercostals muscle retraction or any accessory muscle activation. There is no chest wall tenderness. Breath sounds are heard bilaterally. Expiratory wheezes bilaterally ;no evidence of consolidation BREASTS: Deferred. HEART: The PMI is in the 5th left intercostals space just in the midclavicular line. No palpable precordial events. S1 and S2 are normal. No S3 or S4 heard. No pericardial rub or any click heard. Ejection systolic murmur of grade 4/6 in the aortic area with a transmission to both carotids. No diastolic murmurs. ABDOMEN: No vessel pulsations or distention. No tenderness. No organomegaly appreciated. No abdominal bruit. Bowel sounds are normally heard. : Deferred. RECTAL: Deferred. LYMPHATIC: No lymphadenopathy noted in the neck or groin. EXTREMITIES: No severe edema or cyanosis. Peripheral pulses are weak bilaterally. MUSCULOSKELETAL: No acute joint deformities or swelling. SKIN: There are no significant scars or skin rash noted. NEUROPSYCHIATRIC: The patient is alert and oriented x3.. The higher functions are grossly within normal limits. Appears to have some intentional tremor Data : 04/01/20 04:36 04/01/20 04:36 Other Labs: Laboratory Last Values WBC 14.9 10^3/uL (4.0-10.0) H 04/01/20 04:36 RBC 4.78 10^6/uL (4.1-5.3) 04/01/20 04:36 Hgb 13.6 g/dL (11.7-16.6) 04/01/20 04:36 Hct 43.0 % (42.0-52.0) 04/01/20 04:36 MCV 90.0 fL (80-94) 04/01/20 04:36 MCH 28.5 pg (28.0-34.0) 04/01/20 04:36 MCHC 31.6 g/dL (30.0-36.0) 04/01/20 04:36 RDW 13.6 % (12.1-15.1) 04/01/20 04:36 Plt Count 290 10^3/cmm (130-400) 04/01/20 04:36 MPV 11.4 fL (7.4-10.4) H 04/01/20 04:36 Neut % (Auto) 84.4 % 04/01/20 04:36 Lymph % (Auto) 6.8 % 04/01/20 04:36 [place] % (Auto) 8.2 % 04/01/20 04:36 Eos % (Auto) 0.0 % 04/01/20 04:36 Baso % (Auto) 0.1 % 04/01/20 04:36 Neut # (Auto) 12.61 10^3/uL (1.8-7.7) H 04/01/20 04:36 Lymph # (Auto) 1.0 10^3/uL (0.8-4.8) 04/01/20 04:36 [place] # (Auto) 1.2 10^3/uL (0.2-0.9) H 04/01/20 04:36 Eos # (Auto) 0.0 10^3/uL (0.0-0.8) 04/01/20 04:36 Baso # (Auto) 0.0 10^3/uL (0.0-0.1) 04/01/20 04:36 Nucleated RBC % (auto) 0 % 04/01/20 04:36 Nucleated RBCs # 0.0 /100WBC 04/01/20 04:36 PT 14.90 SECONDS (12.1-14.9) 03/28/20 15:35 INR 1.13 (0.8-1.2) 03/28/20 15:35 Fibrinogen 603 mg/dL (174-498) H 03/28/20 08:22 D-Dimer 0.93 ug/mIFEU (0-0.59) H 03/28/20 08:22 Specimen Type Arterial 03/28/20 08:56 Sample Site Brachial, right 03/28/20 08:56 ABG pH 7.43 (7.35-7.45) 03/28/20 08:56 ABG pCO2 33.8 mmHg (35-45) L 03/28/20 08:56 ABG pO2 62.8 mmHg (80.0-100.0) L 03/28/20 08:56 ABG HCO3 22.4 mmol/L (22-26) 03/28/20 08:56 ABG Base Excess -1.2 mmol/L (-2.0-2.0) 03/28/20 08:56 [place] Test N/a 03/28/20 08:56 Hematocrit 43.1 % (42-52) 03/28/20 08:56 O2 Delivery Device Nc 03/28/20 08:56 O2 Liters/Min 2.0 % 03/28/20 08:56 FiO2 28.0 % 03/28/20 08:56 Expanded Duty Dental Assistant ID Amh 03/28/20 08:56 Sodium 138 mmol/L (136-145) 04/01/20 04:36 Potassium 5.0 mmol/L (3.5-5.1) 04/01/20 04:36 Chloride 103 mmol/L (98-107) 04/01/20 04:36 Carbon Dioxide 21 mmol/L (22-29) L 04/01/20 04:36 Anion Gap 19.0 (5-19) 04/01/20 04:36 BUN 98 mg/dL (8-23) H* 04/01/20 04:36 Creatinine 2.1 mg/dL (0.7-1.2) H 04/01/20 04:36 GFR Calculation 31.8 mL/min (90-130) L 04/01/20 04:36 Glucose 155 mg/dL (65-115) H 04/01/20 04:36 Calculated Osmolality 320 mOsm/kg (285-295) H 04/01/20 04:36 Lactic Acid 1.5 mmol/L (0.5-2.2) 03/28/20 09:24 Lactate 1.9 mmol/L (0.5-2.2) 03/30/20 19:57 Calcium 8.6 mg/dL (8.5-10.5) 04/01/20 04:36 Ferritin 340 ng/mL (30-400) 03/28/20 08:22 Total Bilirubin 0.6 mg/dL (0.15-1.2) 04/01/20 04:36 AST 39 U/L (0-40) 04/01/20 04:36 ALT 74 U/L (0-41) H 04/01/20 04:36 Alkaline Phosphatase 76 IU/L (40-130) 04/01/20 04:36 Lactate Dehydrogenase 321 U/L (135-225) H 03/28/20 08:22 C-Reactive Protein 128.3 mg/L (0.0-4.9) H 03/28/20 08:22 NT-Pro-B Natriuret Pep 90139 pg/mL (0-125) H 03/28/20 08:22 Total Protein 5.5 g/dL (6.6-8.7) L 04/01/20 04:36 Albumin 3.1 g/dL (3.5-5.2) L 04/01/20 04:36 Globulin 2.4 g/dL (1.3-4.6) 04/01/20 04:36 Triglycerides 89 mg/dL (0-150) 03/29/20 05:11 Cholesterol 149 mg/dL (0-200) 03/29/20 05:11 LDL Cholesterol, Calc 96 mg/dL (50-129) 03/29/20 05:11 HDL Cholesterol 35 mg/dL (60-100) L 03/29/20 05:11 LDL/HDL Ratio 2.74 RATIO (0.00-3.22) 03/29/20 05:11 Cholesterol/HDL Ratio 4.26 mg/dL (1.0-5.00) 03/29/20 05:11 Procalcitonin 0.23 ng/mL (0-0.5) 03/30/20 19:57 Urine Opiates Screen Negative ng/mL (Negative) 03/28/20 02:10 Ur Barbiturates Screen Negative ng/mL (Negative) 03/28/20 02:10 Ur Phencyclidine Scrn Negative ng/mL (Negative) 03/28/20 02:10 Ur Amphetamines Screen Negative ng/mL (Negative) 03/28/20 02:10 U Benzodiazepines Scrn Negative ng/mL (Negative) 03/28/20 02:10 Urine Cocaine Screen Negative ng/mL (Negative) 03/28/20 02:10 U Marijuana (THC) Screen Positive ng/mL (Negative) H 03/28/20 02:10 Nasal/Oral COVID-19 PCR Negative 03/28/20 11:11 SARS-CoV-2 Ag (Rapid) Negative (Negative) 03/28/20 08:56 Micro: Microbiology 03/28/20 23:31 Gram Stain - Final Sputum - Expectorated Sputum Sputum Culture - Final 03/31/20 05:20 Legionella Urinary Antigen - Final Urine,Voided Bacterial Antigens - Final A&P Assessment and plan (1) Acute systolic heart failure: Patient is off the diuretics now. He was carefully hydrated. The BUN/creatinine still seems to be going up. Status: Acute (2) Severe aortic valve stenosis: Patient may benefit from aortic valve intervention. Because of the LV dysfunction, he requires a cardiac colorization, to rule out any underlying coronary artery disease. We also need to evaluate his right heart pressures. Once the kidney function gets stable, we may consider this. Status: Acute (3) Acute exacerbation of chronic obstructive pulmonary disease: Management as per the primary Status: Acute (4) Cardiomyopathy as manifestation of underlying disease: Etiology of the LV dysfunction is not clear. after reviewing the cardiac catheterization data, further management decisions will be made Status: Acute (5) Hemoptysis: Has not had any recurrence. Status: Acute (6) Acute kidney injury superimposed on chronic kidney disease: The etiology of the worsening kidney function is not clear at this time. May require further studies. Ultrasound examination of the kidney would be appropriate. Discussed with the Dr. Orr. Status: Acute Additional A&P Information Other problems are Leukocytosis, etiology? Seems to be coming down Possible pneumonia Renal insufficiency Based on the patient's clinical progress, further recommendations will be made. 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
[2020-04-01 11:01] LABS: Add Urine Microscopic? NO
[2020-04-01 11:13] LABS: Bilirubin Urine Neg (Negative); Blood Urine Neg (Negative); Glucose Urine UA Norm (Normal); Ketones Urine Negative (Negative); Leukocyte Esterase Urine Negative (Negative); Nitrate Urine Negative (Negative); Protein Urine Neg (Negative); Urine Appearance Clear (CLEAR); Urine Color Yellow (Yellow); Urobilinogen Urine Norm (Negative)
[2020-04-01] MEDS: levofloxacin-dextrose 5 % 750 MG/150 ML PREMIX 100 MG IV (11:13)
[2020-04-01 11:35] LABS: Urine Creatinine 97 mg/dL (39-259)
[2020-04-01 11:37] LABS: Urea Nitrogen,Urine Random 1576 mg/dL
--- NOTE | 2020-04-01 13:12 | P.CONIM_ITS ---
Providers/Reason For Consult Consulting Physican/Specialty*: Nephrology Reason for Consult*: Eval for BUSHRA Attending Physician: Rodolfo Orr Primary Care Provider: Hubert Cifuentes History of Present Illness History of Present Illness Thank you for consultation. Today I reviewed this very pleasant 64-year-old gentleman for evaluation of acute kidney injury. He presented on with 3-4 days of increasing shortness of breath, cough with blood-tinged sputum. COVID-19 test was negative. Since hospitalization initial diagnostic testing included CT scan with IV contrast which demonstrated moderate right pleural effusion, diffuse airspace infiltrations involving the right upper lobe, bronchovascular thickening along the right hilum with enlarged right hilar and subcarinal lymph nodes. This was felt to be secondary to pneumonia, for which she has received Levaquin. Additionally, a 2D echocardiogram done demonstrated diffuse hypokinesis of the left ventricle with ejection fraction of 35%, grade 3-4 diastolic dysfunction, severe aortic valve stenosis. He also has severe pulmonary hypertension with an estimated pulmonary artery peak systolic pressure of 85. Initially he received diuretics, however due to worsening renal function he did receive some intravenous fluid today. He has mild lower extremity edema. His breathing is labored on nasal cannula but he is maintaining his oxygen saturation. No known history of acute or chronic kidney disease, admission creatinine was normal at 1.1 mg/dL, on the second hospital day, his creatinine was 1.2, however after this increased to 2.1, 2.2 yesterday and again 2.1 today. UO yesterday recorded at 150mL, ? full recording. He tells me that his urinary stream is sluggish, that he may not be fully emptying his bladder. He denies any additional uremic symptoms at this time. Hemodynamics have been robust since hospitalization. Review of Systems Narrative: ROS - 12 point review of systems completed per HPI and subjective assessment, this includes Constitutional: Weakness, fatigue Respiratory: No SOB on exertion, comfortable at rest CardioVasc: No chest pain, palpitations Gastrointestinal: No nausea, no vomiting Neurological: No seizures, no AMS Derm: No new rashes, lesions or wounds Immunological: No seasonal and no food allergies Meds/Allergies Home Medications and Allergies Home Medications Medication Instructions Recorded Confirmed Last Taken Type acetaminophen [Tylenol] 500 mg PO QID PRN 03/28/20 03/28/20 Unknown History gabapentin 250 mg PO QID 10/19/20 10/19/20 10/19/20 History Allergies Allergy/AdvReac Type Severity Reaction Status Date / Time No Known Allergies Allergy Verified 03/28/20 08:48 Current Medications Current Medications Generic Name Dose Route Start Last Admin Trade Name Freq PRN Reason Stop Dose Admin Albuterol Sulfate 2 puff 03/28/20 16:00 04/01/20 09:00 Ventolin INHALATION 2 puff Q4H.RESPIRATORY PRN Administration SHORTNESS OF BREATH Gabapentin 300 mg 03/28/20 17:00 04/01/20 10:59 Neurontin PO Not Given QID JOSÉ ANTONIO Levofloxacin/Dextrose 750 mg in 150 mls @ 100 mls/hr 04/01/20 10:30 04/01/20 11:13 Levaquin-D5w IV 100 mls/hr Q48H JOSÉ ANTONIO Administration Protocol Lorazepam 0.25 mg 03/29/20 09:00 03/31/20 19:44 Ativan PO 0.25 mg TID PRN Administration ANXIETY Metoprolol Tartrate 25 mg 03/29/20 09:00 04/01/20 11:00 Lopressor PO Not Given BID JOSÉ ANTONIO Pantoprazole Sodium 40 mg 03/29/20 09:00 04/01/20 11:00 Protonix PO Not Given DAILY JOS[facility] ANTONIO Prednisone 40 mg 03/29/20 09:30 04/01/20 11:00 Prednisone PO Not Given DAILY JOSÉ ANTONIO PFSH Acute PFSH: Medical History Acute systolic heart failure COPD (chronic obstructive pulmonary disease) Peripheral neuropathy Severe aortic valve stenosis Surgical History History of shoulder surgery Family History Father Stroke Social History Smoking and tobacco status: current some day smoker cigarettes Packs smoked per day: 1 Years cigarettes smoked: 50 Alcohol intake: never Substance/Drug Use: never Vitals/I&O/Wt Last Vital Signs Temp 97.9 F 04/01/20 11:42 Pulse 75 04/01/20 11:42 Resp 17 04/01/20 11:42 BP 140/71 04/01/20 11:42 Pulse Ox 97 04/01/20 11:42 03/31/20 04/01/20 04/01/20 22:59 06:59 14:59 Intake Total 470 / 610 360 / 970 440 / 440 Output Total 150 / 150 Balance 470 / 610 360 / 970 290 / 290 Weight last 48 hrs Weight 80.995 kg Weight 78.528 kg Weight 84.368 kg Physical Exam Narrative: EXAM NARRATIVE: Constitutional: Awake HEENT: Wet mucosa, no jvp, non icteric Lungs: Bilaterally wheeze, rales in all lung zones CVS: S1 S2, ESM Abdo: Soft, BS ok Ext 4: Minimal edema, peripheral perfusion with no cyanosis Neurological: Grossly non-focal Data Micro: Micro: Microbiology 03/28/20 23:31 Gram Stain - Final Sputum - Expector ated Sputum Sputum Culture - F inal 03/31/20 05:20 Legionella Urinary Antigen - Final Urine,Voided Bacterial Antigens - Final A&P Additional A&P Information 1. BUSHRA Differential diagnosis for this includes contrast nephropathy given the CTA that he had on admission, cardiorenal syndrome given the high pulmonary pressures to cause passive renal congestion, reduced cardiac output given his aortic stenosis, however, blood pressure is well maintained. I have asked the nursing staff to do a bedside bladder scan, post void, will also get renal ultrasound scan. Fractional excretion of urea is 38%, consistent with prerenal picture. At this time, there is downside to both giving IV hydration as well as high-dose diuretics. With with this in mind we will defer both options for the time being. If kidney function does continue to worsen I will discuss the utility of a right heart cath with the team to help guide volume mgmt; especially as we observe him over the weekend. CPK, TSH, uric acid for completion avoid the usuals strict Is and Os 2. Pneumonia On Levaquin May need thoracentesis 3. Lytes with minor aberration; monitor for now Andreas Hayward MD Nephrology [phone] Patient seen and examined via telemedicine, with the assistance of the bedside RN Consult Attestations Medical Necessity Statement: eval for BUSHRA Coding Level of Care Code Acute Log Buncher for [facility]
[2020-04-01] MEDS: gabapentin 300 mg Capsule PO ×3 (13:43→20:55)
[2020-04-01 14:26] LABS: Creatine Phosphokinase 151 U/L (39-308); Thyroid Stimulating Hormone 3.44 uIU/mL (0.27-4.20); Uric Acid 10.2 mg/dL (3.4-7.0)
--- NOTE | 2020-04-01 17:01 | PC.NURSE ---
patient states it is okay for staff to talk to Solo T[facility]as [phone] about patients care
[2020-04-01] MEDS: metoprolol tartrate 25 mg Tablet PO (17:35)
--- NOTE | 2020-04-01 21:23 | P.PN_ITS ---
Subjective Subjective: Interval history: She denies any chest pain or pressure. Says that he feels somewhat cooped up in the hospital. Understands that he needs additional work-up with regards to the recent findings with multiple cardiac conditions. Discussed with him also regarding kidney injury. Initially states would like to just proceed with assessing his heart, however, on closer discu pratibha says that if possible would like to avoid hemodialysis and so states understands the caution. Vitals/I&O/Wt Last Vital Signs Temp 97.6 F 04/01/20 20:00 Pulse 72 04/01/20 21:15 Resp 19 H 04/01/20 21:10 BP 113/75 04/01/20 20:00 Pulse Ox 93 04/01/20 21:10 04/01/20 04/01/20 04/01/20 06:59 14:59 22:59 Intake Total 1969 1130 / 1130 Output Total 150 / 150 200 / 350 Balance 1969 980 / 980 -200 / 780 Weight last 48 hrs Weight 80.995 kg Weight 78.528 kg Weight 84.368 kg Physical Exam Const: COMMON NORMALS: no acute distress and patient oriented x3 HENMT: COMMON NORMALS: oropharynx normal Resp: COMMON NORMALS: normal respiratory effort and clear to auscultation bilaterally AUSCULTATION: clear to auscultation bilaterally and wheezes Cardio: COMMON NORMALS: regular rhythm, S1 normal heart sound present, S2 normal heart sound present and No murmurs present (Cardio) RHYTHM: regular rhythm HEART SOUNDS: S1 normal heart sound present and S2 normal heart sound present GI: COMMON NORMALS: Normal to inspection, nondistended, normoactive bowel sounds present, Soft to palpation and non-tender PALPATION: Yes Soft to palpation Extremity: COMMON NORMALS: no joint enlargement GENERAL: Yes edema (2+) Neuro: COMMON NORMALS: patient oriented x3 and moves all extremities Skin: COMMON NORMALS: no rashes or lesions noted GENERAL SKIN EXAM: no rashes or lesions noted Data : 04/01/20 04:36 04/01/20 04:36 Micro: Microbiology 03/28/20 23:31 Gram Stain - Final Sputum - Expectorated Sputum Sputum Culture - Final A&P Assessment and plan (1) Pneumonia: Continue Levaquin 750mg daily RTAT, oxygen per protocol Normal eric on sputum cultures. Still coughing. Wheezing on exam. COVID-19 testing negative x2 Pneumo and Legionella antigen testing negative Status: Acute Qualifiers: Laterality: right Lung location: unspecified part of lung Pneumonia type: due to unspecified organism Qualified Code(s): J18.9 - Pneumonia, unspecified organism (2) COPD (chronic obstructive pulmonary disease): Bilateral wheezing. With acute exacerbation, continue on Levaquin, received 3 doses of Solu-Medrol, and will continue prednisone 40 mg daily at this time And scheduled and as needed breathing treatments. Appreciate pulmonology consultation. Hold off on bronchoscopy at this time Status: Acute Qualifiers: COPD type: unspecified COPD Qualified Code(s): J44.9 - Chronic obstructive pulmonary disease, unspecified (3) Hemoptysis: CTA showing bronchovascular thickening along the right hilum with enlarged right hilar and subcarinal lymph nodes, may be reactive due to pneumonia, neoplasm cannot be excluded would recommend close outpatient follow-up Appreciate consultation by pulmonology and due to patient's other comorbidities will hold off on bronchoscopy. If effusion remains then consider thoracentesis Status: Acute (4) Acute kidney injury superimposed on chronic kidney disease: IV fluids held. Did not appear to show significant response. Did receive additional albumin back this morning. Appreciate nephrology assessment. At this time monitor creatinine. Hold off additional diuretic. Avoid nephrotoxins. Monitor renal function. Status: Acute (5) Acute respiratory failure with hypoxia: Due to multiple comorbidities including COPD exacerbation, pneumonia, CHF, severe aortic stenosis. Currently requiring 5 L of oxygen, normally not on oxygen previously. Treat underlying issues as above. Status: Acute Additional A&P Information New diagnosis of combined CHF: Diffuse hypokinesis, LVEF of 35% with grade 3 diastolic dysfunction and severe pulmonary hypertension. Holding Lasix due to worsening renal function. Will follow along with cardiology recommendations. Patient will likely require cardiac cath for further evaluation, however will need to wait until renal function improves. Severe aortic stenosis: Cardiology consultation, this is new diagnosis for patient, denies any history of valvular heart disease. Per discussion with cardiology who have discussed with patient options and consideration of risks and benefits aortic valve replacement most likely would be be by TAVR. Continue home gabapentin for peripheral neuropathy COVID-19 testing negative x2 DVT prophylaxis: SCDs, no pharmacologic prophylaxis due to concern for hemoptysis Diet: 2 g sodium restriction CODE STATUS: Full code, this was discussed with the patient on admission Attestations Medical Necessity Statement*: Continue admission for assessment and management of acute respiratory failure, assessment of severe aortic stenosis and other cardiac disease. 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
[2020-04-02] VITALS (12 sets, daily range): BP systolic 110–152; BP diastolic 62–88; PULSE 64–81; RESP 18–24; TEMP 36.3–37.1; O2SAT 90–95
[2020-04-02] MEDS: ipratropium-albuterol 3 mL Neb INHALATION ×5 (03:55→21:40)
--- NOTE | 2020-04-02 05:33 | NUR.SHIFT ---
Patient had mainly slept. His behavior is completely different than what it was last night. Patient is more cooperative and overall in a better mood. Patient has gone to the rest room a few different times to void.
[2020-04-02 05:48] LABS: Basophils % 0.1 %; Eosinophils % 0.1 %; Hematocrit 46.2 % (42.0-52.0); Hemoglobin 14.6 g/dL (11.7-16.6); Lymphocytes # 1.1 10^3/uL (0.8-4.8); Lymphocytes % 6.6 %; Mean Corpuscular HGB Conc 31.6 g/dL (30.0-36.0); Mean Corpuscular Hemoglobin 28.5 pg (28.0-34.0); Mean Corpuscular Volume 90.2 fL (80-94); Mean Platelet Volume 11.6 fL (7.4-10.4); Monocytes # 1.6 10^3/uL (0.2-0.9); Monocytes % 10.1 %; Neutrophils % 82.4 %; Nucleated Red Blood Cells % 0 %; Platelet Count 277 10^3/cmm (130-400); Red Blood Count 5.12 10^6/uL (4.1-5.3); Red Cell Distribution Width 13.7 % (12.1-15.1); White Blood Count 16.1 10^3/uL (4.0-10.0)
[2020-04-02 06:19] LABS: Alanine Aminotransferase 72 U/L (0-41); Albumin Level 3.4 g/dL (3.5-5.2); Alkaline Phosphatase 74 IU/L (40-130); Anion Gap 15.3 (5-19); Aspartate Amino Transferase 30 U/L (0-40); Calcium 8.8 mg/dL (8.5-10.5); Carbon Dioxide 25 mmol/L (22-29); Chloride 104 mmol/L (98-107); Globulin 2.3 g/dL (1.3-4.6); Glomerular Filtration Rate 37.9 mL/min (90-130); Glucose 95 mg/dL (65-115); Osmolality Calculated 313 mOsm/kg (285-295); Potassium 5.3 mmol/L (3.5-5.1); Sodium 139 mmol/L (136-145); Total Bilirubin 1.2 mg/dL (0.15-1.2); Total Protein 5.7 g/dL (6.6-8.7)
[2020-04-02 06:25] LABS: Blood Urea Nitrogen 83 mg/dL (8-23)
--- NOTE | 2020-04-02 07:44 | XRR_ITS ---
PROCEDURE INFORMATION: Exam: XR Chest, 1 View Exam date and time: 04/02/2020 1:29 PM Age: 64 years old Clinical indication: Dyspnea and shortness of breath; Additional info: Hypoxia TECHNIQUE: Imaging protocol: XR of the chest Views: 1 view. COMPARISON: CR XR chest 1V portable [id number] 03/30/2020 5:05 AM FINDINGS: Lungs: Diffuse parenchymal densities are seen throughout the left lung and in the right upper lobe . These findings are stable in density on the left lung and decreased in density on the right lung. There is atelectasis present in the right lower lobe Pleural space: Unremarkable. No pleural effusion. No pneumothorax. Heart/Mediastinum: Unremarkable. No cardiomegaly. Bones/joints: Unremarkable. XR/XR chest 1V portable [id number] IMPRESSION: 1. Diffuse parenchymal density left lung consistent with pneumonia stable since prior 2. Patchy parenchymal densities right upper lobe decreased density since prior
[2020-04-02] MEDS: pantoprazole DR 40 mg Tablet PO (08:06)
[2020-04-02] MEDS: predniSONE 20 mg Tablet 40 MG PO (08:06)
[2020-04-02] MEDS: metoprolol tartrate 25 mg Tablet PO ×2 (08:06→17:32)
[2020-04-02] MEDS: gabapentin 300 mg Capsule PO ×4 (08:06→20:19)
--- NOTE | 2020-04-02 09:53 | PM.PN ---
Subjective Subjective: Interval history: He feels a little bit better today. Mild shortness of breath on exertion but comfortable at rest. Mild lower extremity edema. He denies uremic symptoms, denies pain. Medications: Reviewed: Yes Medication Review Details: Current Medications Acetaminophen (Tylenol) 650 mg PO Q6H PRN PRN Reason: Mild/Mod Pain Or Temp >/= 101 Hydrocodone Bitart/Acetaminophen ([place] 5-325 Mg) 1 tab PO Q4H PRN PRN Reason: MODERATE TO SEVERE PAIN Albuterol Sulfate (Ventolin) 2 puff INHALATION Q4H.RESPIRATORY PRN PRN Reason: SHORTNESS OF BREATH Last Admin: 04/01/20 09:00 Dose: 2 puff Documented by: Gabapentin (Neurontin) 300 mg PO QID [facility] Last Admin: 03/31/20 21:06 Dose: 300 mg Documented by: Levofloxacin/Dextrose (Levaquin-D5w) 750 mg in 150 mls @ 100 mls/hr IV Q48H [facility]; Protocol Albumin Human (Albumin) 25 gm in 100 mls @ 60 mls/hr IV ONCE ONE Stop: 04/01/20 10:09 Last Admin: 04/01/20 08:53 Dose: 60 mls/hr Documented by: Lorazepam (Ativan) 0.25 mg PO TID PRN PRN Reason: ANXIETY Last Admin: 03/31/20 19:44 Dose: 0.25 mg Documented by: Metoprolol Tartrate (Lopressor) 25 mg PO BID [facility] Last Admin: 03/31/20 17:05 Dose: 25 mg Documented by: Naloxone HCl (Narcan) 0.1 mg IVP Q2M PRN PRN Reason: OPIATERV Ondansetron HCl (Zofran) 4 mg IVP Q6H PRN PRN Reason: NAUSEA AND VOMITING Pantoprazole Sodium (Protonix) 40 mg PO DAILY [facility] Last Admin: 03/31/20 09:26 Dose: 40 mg Documented by: Prednisone (Prednisone) 40 mg PO DAILY [facility] Last Admin: 03/31/20 09:26 Dose: 40 mg Documented by: Vitals/I&O/Wt Last Vital Signs Temp 97.8 F 04/02/20 08:00 Pulse 80 04/02/20 08:00 Resp 20 H 04/02/20 08:00 BP 152/87 10/24/20 08:00 Pulse Ox 94 04/02/20 08:00 04/01/20 04/02/20 04/02/20 22:59 06:59 14:59 Intake Total 240 / 1370 320 / 320 Output Total 200 / 350 75 / 425 200 / 200 Balance -200 / 780 165 / 945 120 / 120 Weight last 48 hrs Weight 78.154 kg Weight 80.995 kg Physical Exam Narrative: EXAM NARRATIVE: Constitutional: Awake HEENT: Wet mucosa, no jvp, non icteric Lungs: Bilaterally wheeze, rales in all lung zones CVS: S1 S2, ESM Abdo: Soft, BS ok Ext 4: Minimal edema, peripheral perfusion with no cyanosis Neurological: Grossly non-focal Data : 04/02/20 04:58 04/02/20 04:58 Micro: Microbiology 03/28/20 09:24 Blood Culture - Final Blood NO GROWTH AFTER 5 DAYS 03/28/20 09:24 Blood Culture - Final Blood NO GROWTH AFTER 5 DAYS A&P Additional A&P Information 1. BUSHRA Differential diagnosis for this includes contrast nephropathy given the CTA that he had on admission, cardiorenal syndrome given the high pulmonary pressures to cause passive renal congestion, reduced cardiac output given his aortic stenosis, however, blood pressure is well maintained. His urine output is only 650 mL, however, his creatinine is coming down. No indication for hemodialysis. We will continue to administration of either intravenous fluids or diuretics. avoid the usuals strict Is and Os 2. Pneumonia On Levaquin May need thoracentesis 3. 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
--- NOTE | 2020-04-02 10:05 | PC.SOCIAL ---
IMM Updated Page 2 of IMM updated and given to patient. Initialed, dated, and timed and placed back in chart.
[2020-04-02] MEDS: tamsulosin 0.4 mg Capsule PO (10:10)
--- NOTE | 2020-04-02 13:42 | PC.NURSE ---
bladder scanned for patient report of bladder spasms and cramping 0mL noted on bladder scan.
--- NOTE | 2020-04-02 13:44 | USR_ITS ---
PROCEDURE INFORMATION: Exam: US Duplex Scan of Inferior Vena Cava., Exam date and time: 04/02/2020 2:52 PM Age: 64 years old Clinical indication: Abdominal or pelvic symptoms: ? Pe; Additional info: Assess ivc - diameter/collapsibility TECHNIQUE: Imaging protocol: Real-time duplex ultrasound scan of the IVC. in the abdomen with color Doppler flow and spectral waveform analysis with image documentation. Complete exam. COMPARISON: CT angio chest PE protcl [id number] 03/28/2020 11:13 AM FINDINGS: Inferior vena cava: There is normal vascular flow present throughout the inferior vena cava no intraluminal thrombus is present. The proximal IVC has AP measurement of 3 cm. The distal IVC measures 1.7 cm. The aorta is not visualized . US/CV duplex IVC [id number] IMPRESSION: Negative examination of the IVC.
--- NOTE | 2020-04-02 15:01 | P.PN_ITS ---
Subjective Subjective: Interval history: 64 yo man with a past medical history of peripheral neuropathy and tobacco abuse admitted with increasing shortness of breath, hemoptysis, hypoxia and tachycardia. COVID-19 PCR negative, CT angiogram reported no evidence of PE, moderate right pleural effusion with compressive atelectasis in the right lower lobe, diffuse airspace infiltrates involving rig ht upper lobe, bronchovascular thickening along right hilum with enlarged right hilar and subcarinal lymph nodes, may be reactive, neoplasm not entirely excluded. Initially Lasix was given but due to worsening renal functions Lasix was held. He states he feels better. He is on oxygen 3L presently. Medications: Reviewed: Yes Medication Review Details: Current Medications Acetaminophen (Tylenol) 650 mg PO Q6H PRN PRN Reason: Mild/Mod Pain Or Temp >/= 101 Hydrocodone Bitart/Acetaminophen ([place] 5-325 Mg) 1 tab PO Q4H PRN PRN Reason: MODERATE TO SEVERE PAIN Albuterol Sulfate (Ventolin) 2 puff INHALATION Q4H.RESPIRATORY PRN PRN Reason: SHORTNESS OF BREATH Last Admin: 04/01/20 21:10 Dose: 2 puff Documented by: Albuterol/Ipratropium (Duoneb) 3 ml INHALATION Q4H PRN PRN Reason: SHORTNESS OF BREATH Albuterol/Ipratropium (Duoneb) 3 ml INHALATION Q6H.RESPIRATORY [facility] Last Admin: 04/02/20 14:58 Dose: 3 ml Documented by: Gabapentin (Neurontin) 300 mg PO QID [facility] Last Admin: 04/02/20 12:40 Dose: 300 mg Documented by: Levofloxacin/Dextrose (Levaquin-D5w) 750 mg in 150 mls @ 100 mls/hr IV Q48H [facility]; Protocol Last Infusion: 04/01/20 12:43 Dose: Infused Documented by: Metoprolol Tartrate (Lopressor) 25 mg PO BID [facility] Last Admin: 04/02/20 08:06 Dose: 25 mg Documented by: Naloxone HCl (Narcan) 0.1 mg IVP Q2M PRN PRN Reason: OPIATERV Ondansetron HCl (Zofran) 4 mg IVP Q6H PRN PRN Reason: NAUSEA AND VOMITING Pantoprazole Sodium (Protonix) 40 mg PO DAILY [facility] Last Admin: 04/02/20 08:06 Dose: 40 mg Documented by: Prednisone (Prednisone) 40 mg PO DAILY [facility] Last Admin: 04/02/20 08:06 Dose: 40 mg Documented by: Tamsulosin HCl (Flomax) 0.4 mg PO DAILY [facility] Last Admin: 04/02/20 10:10 Dose: 0.4 mg Documented by: Vitals/I&O/Wt Last Vital Signs Temp 97.5 F L 04/02/20 12:00 Pulse 66 04/02/20 14:58 Resp 18 04/02/20 14:58 BP 152/87 04/02/20 08:00 Pulse Ox 95 04/02/20 14:58 04/02/20 04/02/20 04/02/20 06:59 14:59 22:59 Intake Total 240 / 1370 520 / 520 Output Total 75 / 425 400 / 400 Balance 165 / 945 120 / 120 Weight last 48 hrs Weight 172 lb 4.8 oz Weight 178 lb 9 oz Physical Exam Narrative: EXAM NARRATIVE: GENERAL: Averagely built and averagely nourished in mild respiratory distress HEENT: Pupils equal round reactive to light. No pallor or icterus. NECK: No JVD. No carotid bruit. CARDIOVASCULAR SYSTEM: S1-S2 regular. No S3 or S4 present. No murmur rubs or gallops. RESPIRATORY SYSTEM: coarse bilateral breath sounds. occasional rales+ No wheezes or rubs heard. No use of accessory muscles. ABDOMEN: Soft, nontender and nondistended. Normal bowel sounds present. EXTREMITIES: No cyanosis or clubbing. Trace edema. No signs of chronic venous insufficiency. COLLECTIONS ANALYST: Patient is alert oriented ?3. SKIN: Normal turgor and temperature. No breakdown, rash or nail changes noted. PSYCH: Normal insight and judgment. Data : 04/02/20 04:58 04/02/20 04:58 Micro: Microbiology 03/28/20 09:24 Blood Culture - Final Blood NO GROWTH AFTER 5 DAYS 03/28/20 09:24 Blood Culture - Final Blood NO GROWTH AFTER 5 DAYS CXR: Radiologist's impression: 02 April 2020 IMPRESSION: 1. Diffuse parenchymal density left lung consistent with pneumonia stable since prior 2. Patchy parenchymal densities right upper lobe decreased density since prior Attestation for Other Data: I personally reviewed and interpreted the following: Other data: Echocardiogram 28 March 2020 CONCLUSIONS Diffuse hypokinesia left ventricle with an ejection fraction of 35%. Moderate concentric left atrial hypertrophy.Grade III/IV diastolic dysfunction (restrictive filling pattern), severely elevated filling pressures. Severe aortic valve stenosis, mean gradient 31.1 mmHg, JJ 0.49 cm squared. (Peak velocity of 4.24 m/s Moderate aortic valve regurgitation. Severe pulmonary hypertension with an estimated pulmonary artery peak systolic pressure of 85 mmHg. Mildly increased left atrial size. The interatrial septum appears to be bulging to the right. Thickened mitral valve. Mild mitral annular calcification. Mild mitral valve regurgitation. Mild pulmonic and tricuspid regurgitation No previous studies available for comparison. Daughter Jeffrey was informed about these findings. A&P Assessment and plan (1) Acute systolic heart failure: Patient is off the diuretics now. He was carefully hydrated. -creatinine has started trending down. Status: Acute (2) Severe aortic valve stenosis: He would benefit from aortic valve intervention. -Plan for left and right heart cath once renal function normalizes. Status: Acute (3) Acute exacerbation of chronic obstructive pulmonary disease: Management as per the primary Status: Acute (4) Cardiomyopathy as manifestation of underlying disease: Etiology of the LV dysfunction is not clear. after reviewing the cardiac catheterization data, further management decisions will be made Status: Acute (5) Hemoptysis: Has not had any recurrence. Status: Acute (6) Acute kidney injury superimposed on chronic kidney disease: The etiology of the worsening kidney function is not clear at this time. 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
--- NOTE | 2020-04-02 15:37 | PC.NURSE ---
Patient refuses to wear telemetry today.
--- NOTE | 2020-04-02 18:48 | P.PN_ITS ---
Subjective Subjective: Interval history: When I, the room he is looking for his plans to find his wallet, but otherwise says he is doing okay. Denies any chest pain. He is coughing little bit although not bringing up much. Says the breathing treatments are helping him. Discussed with him use of incentive spirometer, and he tried it several times. Vitals/I&O/Wt Last Vital Signs Temp 97.7 F 04/02/20 15:49 Pulse 73 04/02/20 15:49 Resp 20 H 04/02/20 15:49 BP 150/80 04/02/20 15:49 Pulse Ox 91 04/02/20 15:49 04/02/20 04/02/20 04/02/20 06:59 14:59 22:59 Intake Total 240 / 1370 520 / 520 240 / 760 Output Total 75 / 425 400 / 400 300 / 700 Balance 165 / 945 120 / 120 -60 / 60 Weight last 48 hrs Weight 78.154 kg Weight 80.995 kg Physical Exam Const: COMMON NORMALS: no acute distress and patient oriented x3 HENMT: COMMON NORMALS: oropharynx normal Resp: COMMON NORMALS: normal respiratory effort and clear to auscultation bilaterally AUSCULTATION: clear to auscultation bilaterally, wheezes and diminished lung sounds Cardio: COMMON NORMALS: regular rhythm, S1 normal heart sound present, S2 normal heart sound present and No murmurs present (Cardio) RHYTHM: regular rhythm HEART SOUNDS: S1 normal heart sound present and S2 normal heart sound present GI: COMMON NORMALS: Normal to inspection, nondistended, normoactive bowel sounds present, Soft to palpation and non-tender PALPATION: Yes Soft to palpation Extremity: COMMON NORMALS: no joint enlargement GENERAL: Yes edema (2+) Neuro: COMMON NORMALS: patient oriented x3 and moves all extremities Skin: COMMON NORMALS: no rashes or lesions noted GENERAL SKIN EXAM: no mahogany hes or lesions noted Data : 04/02/20 04:58 04/02/20 04:58 Micro: Microbiology 03/28/20 09:24 Blood Culture - Final Blood NO GROWTH AFTER 5 DAYS 03/28/20 09:24 Blood Culture - Final Blood NO GROWTH AFTER 5 DAYS A&P Assessment and plan (1) COPD (chronic obstructive pulmonary disease): COPD exacerbation. Persistent bilateral wheezing. We will go ahead and change him back to IV steroid. Scheduled and as needed breathing treatments. Flutter valve. Appreciate pulmonology consultation. Hold off on bronchoscopy at this time Status: Acute Qualifiers: COPD type: unspecified COPD Qualified Code(s): J44.9 - Chronic obstructive pulmonary disease, unspecified (2) Pneumonia: Continue Levaquin 750mg daily RTAT, oxygen per protocol Normal eric on sputum cultures. Still coughing. Wheezing on exam. COVID-19 testing negative x2 Pneumo and Legionella antigen testing negative Status: Acute Qualifiers: Laterality: right Lung location: unspecified part of lung Pneumonia type: due to unspecified organism Qualified Code(s): J18.9 - Pneumonia, unspecified organism (3) Hemoptysis: CTA showing bronchovascular thickening along the right hilum with enlarged right hilar and subcarinal lymph nodes, may be reactive due to pneumonia, neoplasm cannot be excluded would recommend close outpatient follow-up Appreciate consultation by pulmonology and due to patient's other comorbidities will hold off on bronchoscopy. If effusion remains then consider thoracentesis Status: Acute (4) Acute kidney injury superimposed on chronic kidney disease: Some improvement in renal function today 1.8. Discussed with all subspecialties. Hold off on additional IV fluid or diuresis for now. Not preload responsive on SVI assessment. Hold off additional diuretic. Avoid nephrotoxins. Monitor renal function. Status: Acute (5) Acute respiratory failure with hypoxia: Due to multiple comorbidities including COPD exacerbation, pneumonia, CHF, severe aortic stenosis. Currently requiring 5 L of oxygen, normally not on oxygen previously. Treat underlying issues as above. Status: Acute Additional A&P Information New diagnosis of combined CHF: Diffuse hypokinesis, LVEF of 35% with grade 3 diastolic dysfunction and severe pulmonary hypertension. Holding Lasix due to worsening renal function. Will follow along with cardiology recommendations. Patient will likely require cardiac cath for further evaluation, however will need to wait until renal function improves. Severe aortic stenosis: Cardiology consultation, this is new diagnosis for patient, denies any history of valvular heart disease. Per discussion with cardiology who have discussed with patient options and consideration of risks and benefits aortic valve replacement most likely would be be by TAVR. Continue home gabapentin for peripheral neuropathy COVID-19 testing negative x2 DVT prophylaxis: SCDs, no pharmacologic prophylaxis due to concern for hemoptysis Diet: 2 g sodium restriction CODE STATUS: Full code, this was discussed with the patient on admission Attestations Medical Necessity Statement*: Continue admission for assessment of management of COPD exacerbation, CHF, severe aortic stenosis assessment, acute kidney injury. Coding Level of Care Code Acute Duct Layer Supervisor for g Fwd Exam Comprehensive Diagnoses COPD (chronic obstructive pulmonary disease) J44.9 COPD type: unspecified COPD Pneumonia J18.9 Laterality: right Lung location: unspecified part of lung Pneumonia type: due to unspecified organism Hemoptysis R04.2 Acute kidney injury superimposed on chronic kidney disease N17.9; N18.9 Acute respiratory failure with hypoxia J96.01
[2020-04-03] VITALS (10 sets, daily range): BP systolic 124–175; BP diastolic 49–83; PULSE 61–137; RESP 16–20; TEMP 35.9–36.9; O2SAT 91–100
[2020-04-03] MEDS: ipratropium-albuterol 3 mL Neb INHALATION ×3 (05:14→16:07)
--- NOTE | 2020-04-03 05:35 | NUR.SHIFT ---
Patient had periods of sleeping and wakefulness. Patient had no more agitation than what is his baseline. Overall patient had a good night.
[2020-04-03 05:38] LABS: Basophils % 0.1 %; Hematocrit 45.3 % (42.0-52.0); Hemoglobin 14.1 g/dL (11.7-16.6); Lymphocytes # 0.3 10^3/uL (0.8-4.8); Lymphocytes % 2.3 %; Mean Corpuscular HGB Conc 31.1 g/dL (30.0-36.0); Mean Corpuscular Hemoglobin 28.5 pg (28.0-34.0); Mean Corpuscular Volume 91.5 fL (80-94); Mean Platelet Volume 11.2 fL (7.4-10.4); Monocytes # 0.3 10^3/uL (0.2-0.9); Monocytes % 2.2 %; Neutrophils # 12.05 10^3/uL (1.8-7.7); Neutrophils % 94.8 %; Nucleated Red Blood Cells % 0 %; Platelet Count 263 10^3/cmm (130-400); Red Blood Count 4.95 10^6/uL (4.1-5.3); Red Cell Distribution Width 13.7 % (12.1-15.1); White Blood Count 12.7 10^3/uL (4.0-10.0)
[2020-04-03 06:19] LABS: Alanine Aminotransferase 70 U/L (0-41); Albumin Level 3.3 g/dL (3.5-5.2); Alkaline Phosphatase 71 IU/L (40-130); Anion Gap 13.1 (5-19); Aspartate Amino Transferase 26 U/L (0-40); Blood Urea Nitrogen 67 mg/dL (8-23); Carbon Dioxide 29 mmol/L (22-29); Chloride 104 mmol/L (98-107); Globulin 2.3 g/dL (1.3-4.6); Glomerular Filtration Rate 40.5 mL/min (90-130); Glucose 172 mg/dL (65-115); Osmolality Calculated 315 mOsm/kg (285-295); Potassium 5.1 mmol/L (3.5-5.1); Sodium 141 mmol/L (136-145); Total Bilirubin 0.8 mg/dL (0.15-1.2); Total Protein 5.6 g/dL (6.6-8.7)
[2020-04-03] MEDS: tamsulosin 0.4 mg Capsule PO (08:02)
[2020-04-03] MEDS: metoprolol tartrate 25 mg Tablet PO ×2 (08:02→17:00)
[2020-04-03] MEDS: pantoprazole DR 40 mg Tablet PO (08:03)
[2020-04-03] MEDS: gabapentin 300 mg Capsule PO ×4 (08:03→21:10)
--- NOTE | 2020-04-03 08:04 | PC.NURSE ---
Patient sitting up in a chair eating breakfast, denies pain, reports shortness of breath with exertion, oxygen 97% on 3L NC, discussed plan of care, verbalized understanding, denies further questions or concerns.
[2020-04-03] MEDS: levofloxacin-dextrose 5 % 750 MG/150 ML PREMIX 100 MG IV (10:38)
--- NOTE | 2020-04-03 11:08 | P.PN_ITS ---
Subjective Subjective: Interval history: OOB to chair, eating lunch, denies complaints Medications: Reviewed: Yes Vitals/I&O/Wt Last Vital Signs Temp 97.5 F L 04/03/20 07:19 Pulse 61 04/03/20 10:00 Resp 16 04/03/20 10:00 BP 136/67 04/03/20 07:19 Pulse Ox 96 04/03/20 10:00 04/02/20 04/03/20 04/03/20 22:59 06:59 14:59 Intake Total 360 / 880 960 / 960 Output Total 300 / 700 200 / 900 Balance 60 / 180 -200 / -20 960 / 960 Weight last 48 hrs Weight 78.834 kg Weight 78.154 kg Physical Exam Const: COMMON NORMALS: no acute distress GENERAL APPEARANCE: cooperative ORIENTATION/CONSCIOUSNESS: Yes awake Eye: COMMON NORMALS: no scleral icterus Resp: COMMON NORMALS: normal respiratory effort and clear to auscultation bilaterally AUSCULTATION: clear to auscultation bilaterally Cardio: COMMON NORMALS: regular rate and regular rhythm RATE: regular rate RHYTHM: regular rhythm Extremity: GENERAL: Yes edema (1+ bilateral lower extremity) Data : 04/03/20 05:05 04/03/20 05:05 Other Labs: calcium 9.0, albumin 3.3, urinalysis unremarkable Micro: Microbiology 03/28/20 09:24 Blood Culture - Final Blood NO GROWTH AFTER 5 DAYS 03/28/20 09:24 Blood Culture - Final Blood NO GROWTH AFTER 5 DAYS A&P Additional A&P Information 1. Acute kidney injury/chronic kidney disease. Renal function slowly improving. Not presently receiving diuretics. 2. COPD/Pneumonia 3. Severe , low EF, pulmonary hypertension 4. High normal potassium Recommend: Renal diet. 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
--- NOTE | 2020-04-03 11:21 | P.PN_ITS ---
Subjective Subjective: Interval history: He is sleeping. Wakes up to voice. Answers few questions briefly and continues on with his nap. Denies any chest pain or pressure. Says breathing is comfortable. Says is not in any discomfort. Denies any questions. Vitals/I&O/Wt Last Vital Signs Temp 97.5 F L 04/03/20 07:19 Pulse 61 04/03/20 10:00 Resp 16 04/03/20 10:00 BP 136/67 04/03/20 07:19 Pulse Ox 96 04/03/20 10:00 04/02/20 04/03/20 04/03/20 22:59 06:59 14:59 Intake Total 360 / 880 960 / 960 Output Total 300 / 700 200 / 900 Balance 60 / 180 -200 / -20 960 / 960 Weight last 48 hrs Weight 78.834 kg Weight 78.154 kg Physical Exam Const: COMMON NORMALS: no acute distress and patient oriented x3 HENMT: COMMON NORMALS: oropharynx normal Resp: COMMON NORMALS: normal respiratory effort AUSCULTATION: rhonchi (L) and no wheezes Cardio: COMMON NORMALS: regular rhythm, S1 normal heart sound present, S2 normal heart sound present and No murmurs present (Cardio) RHYTHM: regular rhythm HEART SOUNDS: S1 normal heart sound present and S2 normal heart sound present GI: COMMON NORMALS: Normal to inspection, nondistended, normoactive bowel sounds present, Soft to palpation and non-tender PALPATION: Yes Soft to palpation Extremity: COMMON NORMALS: no joint enlargement GENERAL: Yes edema (2+) Neuro: COMMON NORMALS: patient oriented x3 and moves all extremities Skin: COMMON NORMALS: no rashes or lesions noted GENERAL SKIN EXAM: no rashes or lesions noted Data : 04/03/20 05:05 04/03/20 05:05 Micro: Microbiology 03/28/20 09:24 Blood Culture - Final Blood NO GROWTH AFTER 5 DAYS 03/28/20 09:24 Blood Culture - Final Blood NO GROWTH AFTER 5 DAYS A&P Assessment and plan (1) COPD (chronic obstructive pulmonary disease): Wheezing is much better today. Having rhonchi noticeable in the left side. Air entry is better. Oxygenation improved. Oxygen requirement down to 3 L. He is getting some rest this morning. COPD exacerbation. We will switch back to prednisone. Scheduled and as needed breathing treatments. Flutter valve. Appreciate pulmonology consultation. Hold off on bronchoscopy at this time Status: Acute Qualifiers: COPD type: unspecified COPD Qualified Code(s): J44.9 - Chronic obstructive pulmonary disease, unspecified (2) Severe aortic valve stenosis: Severe aortic stenosis. Pending additional assessment and preparation for valve replacement. Plans for coronary geography once renal function is better. Per discussion with cardiology who have discussed with patient options and consideration of risks and benefits aortic valve replacement most likely would be be by TAVR. Status: Acute (3) Cardiomyopathy as manifestation of underlying disease: New diagnosis of combined CHF. Acute kidney injury is improving. Has persistent lower extremity edema. Oral diuretics have been held. His breathing is actually improving. In large part likely related to COPD as admission. Diffuse hypokinesis, LVEF of 35% with grade 3 diastolic dysfunction and severe pulmonary hypertension. Holding Lasix due to worsening renal function. Will follow along with cardiology recommendations. Patient will likely require cardiac cath for further evaluation, however will need to wait until renal function improves. Status: Acute (4) Pneumonia: Continue Levaquin 750mg daily RTAT, oxygen per protocol Normal eric on sputum cultures. Still coughing. Wheezing on exam. COVID-19 testing negative x2 Pneumo and Legionella antigen testing negative Status: Acute Qualifiers: Laterality: right Lung location: unspecified part of lung Pneumonia type: due to unspecified organism Qualified Code(s): J18.9 - Pneumonia, unspecified organism (5) Acute kidney injury superimposed on chronic kidney disease: Some improvement in renal function today 1.7. Holding off on additional IV fluid or diuresis for now. Not preload responsive on SVI assessment. Hold off additional diuretic. Avoid nephrotoxins. Monitor renal function. Status: Acute (6) Hemoptysis: CTA showing bronchovascular thickening along the right hilum with enlarged right hilar and subcarinal lymph nodes, may be reactive due to pneumonia, neoplasm cannot be excluded would recommend close outpatient follow-up Appreciate consultation by pulmonology and due to patient's other comorbidities will hold off on bronchoscopy. If effusion remains then consider thoracentesis Status: Acute (7) Acute respiratory failure with hypoxia: Due to multiple comorbidities including COPD exacerbation, pneumonia, CHF, severe aortic stenosis. Currently requiring 5 L of oxygen, normally not on oxygen previously. Treat underlying issues as above. Status: Acute Additional A&P Information Continue home gabapentin for peripheral neuropathy COVID-19 testing negative x2 DVT prophylaxis: SCDs, no pharmacologic prophylaxis due to concern for hemoptysis Diet: 2 g sodium restriction CODE STATUS: Full code, this was discussed with the patient on admission Attestations Medical Necessity Statement*: Continue admission for assessment management of COPD exacerbation, CHF, in the setting of acute kidney injury, severe aortic stenosis requiring additional evaluation and treatment. Coding Level of Care Code Acute Applied Technologist for [facility] Fwd Diagnoses COPD (chronic obstructive pulmonary disease) J44.9 COPD type: unspecified COPD Severe aortic valve stenosis I35.0 Cardiomyopathy as manifestation of underlying disease I43 Pneumonia J18.9 Laterality: right Lung location: unspecified part of lung Pneumonia type: due to unspecified organism Acute kidney injury superimposed on chronic kidney disease N17.9; N18.9 Hemoptysis R04.2 Acute respiratory failure with hypoxia J96.01
[2020-04-03] MEDS: predniSONE 20 mg Tablet 60 MG PO (12:16)
--- NOTE | 2020-04-03 12:28 | PC.NURSE ---
Rounding: Patient up to chair. Urinal in floor with urine on the floor. 200ml recorded as output
--- NOTE | 2020-04-03 14:16 | PM.PN ---
Subjective Subjective: Interval history: 64 yo man with a past medical history of peripheral neuropathy and tobacco abuse admitted with increasing shortness of breath, hemoptysis, hypoxia and tachycardia. COVID-19 PCR negative, CT angiogram reported no evidence of PE, moderate right pleural effusion with compressive atelectasis in the right lower lobe, diffuse airspace infiltrates involving right upper lobe, bronchovascular thickening along right hilum with enlarged right hilar and subcarinal lymph nodes, may be reactive, neoplasm not entirely excluded. Initially Lasix was given but due to worsening renal functions Lasix was held. He states he feels better. He is on oxygen 2L presently. Vitals/I&O/Wt Last Vital Signs Temp 97.8 F 04/03/20 11:26 Pulse 69 04/03/20 11:26 Resp 20 H 04/03/20 11:26 BP 124/66 04/03/20 11:26 Pulse Ox 97 04/03/20 11:26 04/02/20 04/03/20 04/03/20 22:59 06:59 14:59 Intake Total 360 / 880 1440 / 1440 Output Total 300 / 700 200 / 900 200 / 200 Balance 60 / 180 -200 / -20 1240 / 1240 Weight last 48 hrs Weight 173 lb 12.8 oz Weight 172 lb 4.8 oz Physical Exam Narrative: EXAM NARRATIVE: GENERAL: Averagely built and averagely nourished in mild respiratory distress HEENT: Pupils equal round reactive to light. No pallor or icterus. NECK: No JVD. No carotid bruit. CARDIOVASCULAR SYSTEM: S1-S2 regular. No S3 or S4 present. No murmur rubs or gallops. RESPIRATORY SYSTEM: coarse bilateral breath sounds. occasional rales+ No wheezes or rubs heard. No use of accessory muscles. ABDOMEN: Soft, nontender and nondistended. Normal bowel sounds present. EXTREMITIES: No cyanosis or clubbing. Trace left ankle edema. No signs of chronic venous insufficiency. 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 SKIN: Normal turgor and temperature. No breakdown, rash or nail changes noted. PSYCH: Normal insight and judgment. Data : 04/03/20 05:05 04/03/20 05:05 Micro: Microbiology 03/28/20 09:24 Blood Culture - Final Blood NO GROWTH AFTER 5 DAYS 03/28/20 09:24 Blood Culture - Final Blood NO GROWTH AFTER 5 DAYS A&P Assessment and plan (1) Acute systolic heart failure: Patient is off the diuretics now. He was carefully hydrated. -creatinine and BUN has started trending down. Status: Acute (2) Severe aortic valve stenosis: He would benefit from aortic valve intervention. -Plan for left and right heart cath once renal function normalizes. Status: Acute (3) Acute exacerbation of chronic obstructive pulmonary disease: Management as per the primary Status: Acute (4) Cardiomyopathy as manifestation of underlying disease: Etiology of the LV dysfunction is not clear. after reviewing the cardiac catheterization data, further management decisions will be made Status: Acute (5) Hemoptysis: Has not had any recurrence. Status: Acute (6) Acute kidney injury superimposed on chronic kidney disease: The etiology of the worsening kidney function is not clear at this time. Baseline creatinine of 1.1. Status: Acute Additional A&P Information Secondary pHTN pneumonia Hyperkalemia Attestations Medical Necessity Statement*: Needs hospital stay for BUSHRA, CHF and severe . 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
--- NOTE | 2020-04-03 14:22 | PC.NURSE ---
Patient is non-compliant with using urinal with urination for accurate I&O, discussed importance of using urinal, verbalized understanding but will continuously need this reinforced.
[2020-04-04] VITALS (8 sets, daily range): BP systolic 141–147; BP diastolic 56–82; PULSE 65–84; RESP 15–20; TEMP 36.4; O2SAT 84–97
[2020-04-04 05:50] LABS: Basophils % 0.1 %; Hematocrit 41.9 % (42.0-52.0); Hemoglobin 13.3 g/dL (11.7-16.6); Lymphocytes # 0.7 10^3/uL (0.8-4.8); Lymphocytes % 3.3 %; Mean Corpuscular HGB Conc 31.7 g/dL (30.0-36.0); Mean Corpuscular Hemoglobin 28.7 pg (28.0-34.0); Mean Corpuscular Volume 90.5 fL (80-94); Mean Platelet Volume 11.5 fL (7.4-10.4); Monocytes # 1.5 10^3/uL (0.2-0.9); Monocytes % 6.9 %; Neutrophils # 18.81 10^3/uL (1.8-7.7); Nucleated Red Blood Cells % 0 %; Platelet Count 250 10^3/cmm (130-400); Red Blood Count 4.63 10^6/uL (4.1-5.3); Red Cell Distribution Width 13.7 % (12.1-15.1); White Blood Count 21.1 10^3/uL (4.0-10.0)
[2020-04-04 06:25] LABS: Alanine Aminotransferase 85 U/L (0-41); Albumin Level 3.3 g/dL (3.5-5.2); Alkaline Phosphatase 64 IU/L (40-130); Anion Gap 12.1 (5-19); Aspartate Amino Transferase 36 U/L (0-40); Blood Urea Nitrogen 67 mg/dL (8-23); Calcium 9.1 mg/dL (8.5-10.5); Carbon Dioxide 28 mmol/L (22-29); Chloride 105 mmol/L (98-107); Glomerular Filtration Rate 43.5 mL/min (90-130); Glucose 146 mg/dL (65-115); Osmolality Calculated 312 mOsm/kg (285-295); Potassium 5.1 mmol/L (3.5-5.1); Sodium 140 mmol/L (136-145); Total Bilirubin 0.7 mg/dL (0.15-1.2); Total Protein 5.3 g/dL (6.6-8.7)
[2020-04-04] MEDS: tamsulosin 0.4 mg Capsule PO (07:24)
[2020-04-04] MEDS: metoprolol tartrate 25 mg Tablet PO (07:24)
[2020-04-04] MEDS: gabapentin 300 mg Capsule PO ×2 (07:24→12:55)
[2020-04-04] MEDS: predniSONE 20 mg Tablet 60 MG PO (07:24)
[2020-04-04] MEDS: pantoprazole DR 40 mg Tablet PO (07:24)
--- NOTE | 2020-04-04 08:26 | P.PN_ITS ---
Subjective Subjective: Interval history: Feels well. Reports difficulty passing urine. Denies dyspnea. Medications: Reviewed: Yes Vitals/I&O/Wt Last Vital Signs Temp 97.5 F L 04/04/20 08:00 Pulse 84 04/04/20 08:00 Resp 16 04/04/20 08:00 BP 141/56 04/04/20 08:00 Pulse Ox 97 04/04/20 08:00 04/03/20 04/04/20 04/04/20 22:59 06:59 14:59 Output Total 0 / 200 0 / 200 Balance 0 / 1240 0 / 1240 Weight last 48 hrs Weight 80.603 kg Weight 78.834 kg Physical Exam Const: COMMON NORMALS: no acute distress Extremity: GENERAL: No edema Data : 04/04/20 04:41 04/04/20 04:41 A&P Additional A&P Information 1. Acute kidney injury/chronic kidney disease. Renal function slowly improving. Renal function stable. 2. Lower urinary tract symptoms. 2. COPD/Pneumonia 3. Severe , low EF, pulmonary hypertension 4. High normal potassium Recommend: Renal diet. U/A C&S. Bladder sca PVR. 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
--- NOTE | 2020-04-04 08:37 | PM.PN ---
Subjective Subjective: Interval history: The patient seems to be feeling much better. The kidney function seems to be slowly getting back to the baseline. He denies any chest pain or unusual shortness of breath. No fever or chills. Still has a cough. No hemoptysis.No new symptoms. Medications: Reviewed: Yes Medication Review Details: Current Medications Acetaminophen (Tylenol) 650 mg PO Q6H PRN PRN Reason: Mild/Mod Pain Or Temp >/= 101 Albuterol Sulfate (Ventolin) 2 puff INHALATION Q4H.RESPIRATORY PRN PRN Reason: SHORTNESS OF BREATH Last Admin: 04/01/20 21:10 Dose: 2 puff Documented by: Albuterol/Ipratropium (Duoneb) 3 ml INHALATION Q4H PRN PRN Reason: SHORTNESS OF BREATH Last Admin: 04/02/20 21:38 Dose: 3 ml Documented by: Albuterol/Ipratropium (Duoneb) 3 ml INHALATION Q6H.RESPIRATORY [facility] Last Admin: 04/03/20 20:11 Dose: Not Given Documented by: Gabapentin (Neurontin) 300 mg PO QID [facility] Last Admin: 04/04/20 07:24 Dose: 300 mg Documented by: Levofloxacin/Dextrose (Levaquin-D5w) 750 mg in 150 mls @ 100 mls/hr IV Q48H [facility]; Protocol Last Admin: 04/03/20 10:38 Dose: 100 mls/hr Documented by: Metoprolol Tartrate (Lopressor) 25 mg PO BID [facility] Last Admin: 04/04/20 07:24 Dose: 25 mg Documented by: Naloxone HCl (Narcan) 0.1 mg IVP Q2M PRN PRN Reason: OPIATERV Ondansetron HCl (Zofran) 4 mg IVP Q6H PRN PRN Reason: NAUSEA AND VOMITING Pantoprazole Sodium (Protonix) 40 mg PO DAILY [facility] Last Admin: 04/04/20 07:24 Dose: 40 mg Documented by: Prednisone (Prednisone) 60 mg PO DAILY [facility] Last Admin: 04/04/20 07:24 Dose: 60 mg Documented by: Tamsulosin HCl (Flomax) 0.4 mg PO DAILY [facility] Last Admin: 04/04/20 07:24 Dose: 0.4 mg Documented by: Vitals/I&O/Wt Last Vital Signs Temp 97.5 F L 04/04/20 08:00 Pulse 84 04/04/20 08:00 Resp 16 04/04/20 08:00 BP 141/56 04/04/20 08:00 Pulse Ox 97 04/04/20 08:00 04/03/20 04/04/20 04/04/20 22:59 06:59 14:59 Output Total 0 / 200 0 / 200 Balance 0 / 1240 0 / 1240 Weight last 48 hrs Weight 177 lb 11.2 oz Weight 173 lb 12.8 oz Physical Exam Narrative: EXAM NARRATIVE: GENERAL: The patient is alert and oriented times three. Not in any acute distress. Somewhat tachypneic HEENT: Minimal pallor, no icterus or lymphadenopathy. . Oral cavity: There are no mucous membrane lesions. NECK: Trachea appears to be central. No masses noted. No JVD or thyromegaly appreciated. No carotid bruit. RESPIRATORY: Chest is symmetrical. No intercostals muscle retraction or any accessory muscle activation. There is no chest wall tenderness. Breath sounds are heard bilaterally. Expiratory wheezes bilaterally, scattered;no evidence of consolidation BREASTS: Deferred. HEART: The PMI is in the 5th left intercostals space just in the midclavicular line. No palpable precordial events. S1 and S2 are normal. No S3 or S4 heard. No pericardial rub or any click heard. Ejection systolic murmur of grade 4/6 in the aortic area with a transmission to both carotids. No diastolic murmurs. ABDOMEN: No vessel pulsations or distention. No tenderness. No organomegaly appreciated. No abdominal bruit. Bowel sounds are normally heard. : Deferred. RECTAL: Deferred. LYMPHATIC: No lymphadenopathy noted in the neck or groin. EXTREMITIES: No severe edema or cyanosis. Peripheral pulses are weak bilaterally. MUSCULOSKELETAL: No acute joint deformities or swelling. SKIN: There are no significant scars or skin rash noted. NEUROPSYCHIATRIC: The patient is alert and oriented x3.. The higher functions are grossly within normal limits. Appears to have some intentional tremor Data : 04/04/20 04:41 04/04/20 04:41 A&P Assessment and plan (1) Acute systolic heart failure: The heart failure seems to be compensated at this time. He is off the diuretics. Status: Acute (2) Severe aortic valve stenosis: Patient may benefit from aortic valve intervention. Because of the LV dysfunction, he requires a cardiac catheterization, to rule out any underlying coronary artery disease. We also need to evaluate his right heart pressures. Patient apparently is wanting to hold off on this for the time being. He is badly wanting to go home. He might consider this later on. Status: Acute (3) Acute exacerbation of chronic obstructive pulmonary disease: Seems to be improving at this time. Status: Acute (4) Cardiomyopathy as manifestation of underlying disease: Etiology of the LV dysfunction is not clear. after reviewing the cardiac catheterization data, further management decisions will be made. I will be repeating the echocardiogram today to reevaluate the LV function. Will decide on the LifeVest afterwards. Status: Acute (5) Hemoptysis: Has not had any recurrence. Status: Resolved (6) Acute kidney injury superimposed on chronic kidney disease: Renal function is improving. Appreciated the nephrology input Status: Deleted Additional A&P Information Other problems are Leukocytosis, etiology? Seems to be coming down Possible pneumonia, improving Renal insufficiency, slowly returning to the baseline Based on the patient's clinical progress, further recommendations will be made. 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
[2020-04-04] MEDS: ipratropium-albuterol 3 mL Neb INHALATION (08:58)
--- NOTE | 2020-04-04 09:19 | USCV_ITS ---
Solo Ryan Age: 64 Gender: M : 1955 Exam Date: 04/04/2020 10:28 Ordering Phys: Alina Clay MD ([email or web address]) Technologist: Khadijah Cadet [place] [facility] [place]: EVAL EF BP: / HR: 69 Rhythm: Sinus Technical Quality: Adequate MEASUREMENTS (Male / Female) Normal Values 2D ECHO LV Diastolic Diameter PLAX 6.3 cm 4.2 - 5.9 / 3.9 - 5.3 cm LV Systolic Diameter PLAX 5.5 cm LV Chamber Size 5.7 cm IVS Diastolic Thickness 1.5 cm 0.6 - 1.0 / 0.6 - 0.9 cm IVS Systolic Thickness 2.1 cm LVPW Diastolic Thickness 2.1 cm 0.6 - 1.0 / 0.6 - 0.9 cm LVPW Systolic Thickness 2.2 cm RV Chamber Size 3.2 cm LVOT Diameter 2.1 cm LV Ejection Fraction 2D Teich 25.1 % LV Ejection Fraction MOD 2C 40.8 % LV Ejection Fraction 2C AL 40.6 % LA Diameter 4.2 cm LA Width 3.8 cm LA Height 5.0 cm RA Width 3.1 cm RA Height 5.1 cm Aorta at Sinotubular Diameter 3.5 cm M-MODE LV Diastolic Diameter MM 7.0 cm 4.2 - 5.9 / 3.9 - 5.3 cm LV Systolic Diameter MM 5.2 cm LV Ejection Fraction MM Teich 49.2 % IVS Diastolic Thickness MM 1.3 cm 0.6 - 1.0 / 0.6 - 0.9 cm IVS Systolic Thickness MM 1.7 cm LVPW Diastolic Thickness MM 1.1 cm 0.6 - 1.0 / 0.6 - 0.9 cm LVPW Systolic Thickness MM 1.3 cm Aortic Annulus Diameter 3.4 cm LA Ao Ratio MM 1.3 MV E Point Septal Separation 1.4 cm FINDINGS Left Ventricle Concentric left renal hypertrophy. Diffuse hypokinesia of the left ventricle with ejection fraction of 40%. Moderate concentric left ventricular hypertrophy.Mildly dilated left ventricle Right Ventricle Normal right ventricular size and systolic function. Right Atrium Normal right atrial size. Left Atrium Mildly dilated left atrium. Mitral Valve Thickened mitral valve with mild mitral annular calcification. Aortic Valve Stenotic aortic valve. Tricuspid Valve No gross abnormalities noted Pulmonic Valve No gross abnormalities noted Pericardium No pericardial effusion. Aorta Normal aortic annulus size. CONCLUSIONS Concentric left renal hypertrophy. Diffuse hypokinesia of the left ventricle with ejection fraction of 40%. Moderate concentric left ventricular hypertrophy.Mildly dilated left ventricle. Mildly dilated left atrium. Thickened mitral valve with mild mitral annular calcification. Stenotic aortic valve. There is no pericardial effusion. There are no intracardiac masses. Compared to the previous study from 03/28/2020, there is some improvement in the LV ejection fraction Dr Alina Clay MD [facility] (Electronically Signed) Final Date: 04 April 2020 15:55 S
--- NOTE | 2020-04-04 13:30 | PC.SOCIAL ---
IMM Updated Page 2 of IMM updated and given to patient. Initialed, dated, and timed and placed back in chart.
--- NOTE | 2020-04-04 13:58 | P.DS_ITS ---
Discharge Providers Date of Admission: 03/28/20 10:37 Date of Discharge: April 04, 2020 Attending Provider at Admission: Salud Murphy DO Attending Provider at Discharge: Rodolfo Orr Primary Care Provider: Hubert Cifuentes Diagnoses at Discharge Discharge Diagnosis (1) Acute systolic heart failure: Status: Acute Problem details: Complicated by acute kidney injury. Renal function worsened 2 days after admission. Possibly contrast-induced nephropathy, although was receiving diuresis as well. Requires additional evaluation and treatment of severe aortic stenosis. Left AMA before everything can be completed. Says prefers to do things on outpatient side. Please help him coordinate. (2) Severe aortic valve stenosis: Status: Acute Problem details: Needs additional evaluation including left and right heart cath. Left AMA. Says prefers to arrange for things to be done outpatient. Please assist him to coordinate the arrangements. (3) Acute exacerbation of chronic obstructive pulmonary disease: Status: Acute Problem details: Hypoxia improving. Wheezing improving. Antibiotic for COPD exacerbation and pneumonia, steroid taper. Needs to quit smoking. Please follow-up. (4) Cardiomyopathy as manifestation of underlying disease: Status: Acute Problem details: EF 35% on echo 03/28/2020. Severe aortic stenosis, mean gradient 31, valve area 0.49 cm?. Severe pulmonary hypertension. (5) Hemoptysis: Status: Acute Problem details: Concerning changes in the right lobe and subcarinal lymph nodes. Bronchovascular thickening. Nonspecific findings, but neoplasm not excluded. Please help him follow-up with pulmonology for additional assessment by endoscopic/EBUS evaluation to exclude malignancy after hypoxia and cardiac issues are treated. (6) Acute kidney injury superimposed on chronic kidney disease: Status: Acute Problem details: Creatinine has been improving, down to 1.6. Likely contrast induced nephropathy, although did receive diuresis as well for his 2 days of hospitalization. Avoid nephrotoxins. Please follow-up renal function. Reason for Visit Reason for Visit: SOB Hospital Course Discharge Summary: Pleasant 64-year-old gentleman with history of COPD, peripheral neuropathy, current smoker was admitted due to shortness of breath, found to have pneumonia, COPD exacerbation, also reported hemoptysis, with no PE noted on CTA, but with concerning findings with bronchovascular thickening in the perihilar right lobe, subcarinal lymph nodes. Findings nonspecific, but neoplasm not excluded. Additional assessment will be needed by pulmonology after cardiac issues are taking care of. He was noted in new onset CHF, with finding of severe aortic stenosis, with new cardiomyopathy, EF 35%, severe pulmonary hypertension. Aortic valve mean gradient 31 mmHg, valve area 0.49 cm?. He has been hypoxic in the hospital requiring up to 7 L oxygen. Initially was treated with diuresis, however, 2 days after admission noted acute kidney injury with creatinine rising up as high as 2.2. Was assessed by nephrology. Additional diuresis was held. His oxygenation was improving with improvement in COPD exacerbation, possible pneumonia. Wheezing has been resolving. He has been weaning down on oxygen, and currently is down to 2 L by nasal cannula. COVID-19 was negative. Acute kidney injury secondary to contrast-induced nephropathy. Difficult to say whether diuresis on admission may have contributed. Currently creatinine is down to 1.6. Discussed with cardiology and will start on low-dose Lasix currently 20 mg daily. Please reassess renal function, volume status. With improvement in renal function additional assessment was planned in order to prepare him for a required placement, including right and left heart cath. However, today patient decided that he is going to leave AGAINST MEDICAL ADVICE, stating that after careful consideration he prefers to rather make arrangements and additional assessment on outpatient basis. We discussed with him that as his condition is not fully treated, and he is not fully evaluated he may be at risk of worsening or progression of his current illness, a number of complications which may result in severe disability or . He verbalized understanding. He does state he is feeling much better. He understands he may return to the hospital anytime to continue care. Understands to follow-up with his primary care provider at soonest available appointment. He agreed for us to arrange for oxygen for him to take home. Prescriptions were given for him to complete course of antibiotic, steroid. He is also started on aspirin, beta-jason due to cardiac issues. Albuterol, Spiriva for COPD. Please follow-up on active issues and help him coordinate additional arrangements for further assessment and treatment of CHF, severe aortic stenosis requiring valve repair, pulmonary hypertension, and help him bean bsequently get reassessed by pulmonology regarding concerning right lung findings to exclude possible malignancy. Please follow up moderate R pleural effusion. Please assist him in quitting smoking. Physical Exam Const: COMMON NORMALS: no acute distress and patient oriented x3 HENMT: COMMON NORMALS: oropharynx normal Neck/C-Spine: COMMON NORMALS: no JVD Resp: COMMON NORMALS: normal respiratory effort and clear to auscultation bilaterally AUSCULTATION: clear to auscultation bilaterally Cardio: COMMON NORMALS: no JVD, regular rhythm, S1 normal heart sound present, S2 normal heart sound present and No murmurs present (Cardio) RHYTHM: regular rhythm HEART SOUNDS: S1 normal heart sound present and S2 normal heart sound present GI: COMMON NORMALS: Normal to inspection, nondistended, normoactive bowel sounds present, Soft to palpation and non-tender PALPATION: Yes Soft to palpation Extremity: COMMON NORMALS: no joint enlargement and no pedal edema GENERAL: Yes edema (2+) Neuro: COMMON NORMALS: patient oriented x3 and moves all extremities Skin: COMMON NORMALS: no rashes or lesions noted GENERAL SKIN EXAM: no rashes or lesions noted Discharge Data Data Completed and Pending: Completed Studies During Hospitalization Category Date Time Status CT angio chest PE protcl [id number] Stat Cat Scan 03/28/20 10:04 Completed XR chest 1V abby ble [id number] Routine Exams 03/30/20 06:00 Completed XR chest 1V abby ble [id number] Routine Exams 04/02/20 07:44 Completed XR chest 1V abby ble [id number] Stat Exams 03/28/20 08:48 Completed CV duplex IVC [id number] Routine Ultrasound 04/02/20 13:44 Completed CV echo complete* [id number] Routine Ultrasound 03/28/20 10:54 Completed US renal BI* [id number] Routine Ultrasound 04/01/20 08:03 Completed Pending at discharge Category Date Time Status Urinalysis and Mi croscopic Routine Lab 04/04/20 10:45 Uncollected Urine Culture Rou brenda Lab 04/04/20 10:45 Uncollected CV echo limited 9 [id number] Routine Ultrasound 04/04/20 09:19 Taken Labs from last 24 hours 04/04/20 04/04/20 04:41 04:41 WBC 21.1 H RBC 4.63 Hgb 13.3 Hct 41.9 L MCV 90.5 MCH 28.7 MCHC 31.7 RDW 13.7 Plt Count 250 MPV 11.5 H Neut % (Auto) 89.0 Lymph % (Auto) 3.3 [place] % (Auto) 6.9 Eos % (Auto) 0.0 Baso % (Auto) 0.1 Neut # (Auto) 18.81 H Lymph # (Auto) 0.7 L [place] # (Auto) 1.5 H Eos # (Auto) 0.0 Baso # (Auto) 0.0 Nucleated RBC % (a uto) 0 Nucleated RBCs # 0.0 Sodium 140 Potassium 5.1 Chloride 105 Carbon Dioxide 28 Anion Gap 12.1 BUN 67 H Creatinine 1.6 H GFR Calculation 43.5 L Glucose 146 H Calculated Osmolal ity 312 H Calcium 9.1 Total Bilirubin 0.7 AST 36 ALT 85 H Alkaline Phosphata se 64 Total Protein 5.3 L Albumin 3.3 L Globulin 2.0 Vitals: Last Vital Signs Temp 97.5 F L 04/04/20 12:00 Pulse 81 04/04/20 12:00 Resp 15 04/04/20 12:00 BP 147/82 04/04/20 12:00 Pulse Ox 93 04/04/20 12:00 Discharge Plan Discharge Patient Disposition: Left Against Medical Advice Condition: Stable Prescriptions: New pantoprazole 40 mg Tablet,Delayed Release (Dr/Ec) 40 mg PO DAILY Qty: 30 RF: 0 metoprolol tartrate 25 mg Tablet 25 mg PO BID Qty: 60 RF: 0 tamsulosin 0.4 mg Capsule 0.4 mg PO DAILY Qty: 30 RF: 0 albuterol sulfate [Ventolin HFA] 90 mcg/actuation Hfa Aerosol Inhaler 2 puff inhalation Q4H.RESPIRATORY PRN (Reason: Shortness Of Breath) Qty: 18 RF: 0 prednisone 20 mg Tablet See Rx Instructions .ROUTE .COMPLEX Qty: 20 RF: 0 aspirin [Adult Low Dose Aspirin] 81 mg tablet,delayed release (DR/EC) 81 mg PO DAILY Qty: 30 RF: 0 levofloxacin 750 mg tablet 750 mg PO DAILY 5 Days Qty: 3 RF: 0 Spiriva Respimat 1.25 mcg/actuation mist 2 puff INHALATION DAILY Qty: 4 RF: 0 furosemide [Lasix] 20 mg tablet 10 mg PO DAILY Qty: 30 RF: 0 Continued gabapentin 300 mg Capsule 250 mg PO QID RF: 0 Tylenol 325 mg Capsule 500 mg PO QID PRN (Reason: Pain) RF: 0 Other Ambulatory Orders: DME: Oxygen (Order) Location: None Selected Ordered By: Rodolfo Orr Referrals: [facility] [Outside] Datar,Yuri Mcgill MD [Physician] - 2 weeks (Lung consolidation, possible mass) Alina Clay MD [Physician] - 2 weeks Olesya Pollack MD [Referring] - 4-7 days (COPD exacerbation, pneumonia, severe aortic stenosis, congestive heart failure, acute kidney injury, possible mass in lung, needs additional evaluation for aortic valve replacement first. Left AMA. Wants to set up outpatient.) Discharge Diet: Cardiac Discharge Activity: Oxygen as instructed Activity Restrictions/Additional Instructions: Please continue oxygen at home, target saturation of oxygen between 88 and 92%. Please stop smoking as smoking will lead to progression of your lung disease, heart disease, in addition to risk of cancer, and other complications. Please never smoker in the presence of oxygen as it is severe fire hazard, risking severe airway kemp and . Please be aware that you are leaving the hospital before all the assessments and treatments could be completed. Please be aware that there may be undiagnosed or untreated conditions present due to incomplete episode of care. You are encouraged to stay, or to come back to the hospital in case you change your mind without precautions. Otherwise please seek first available appointment with Dr. Pollack or other primary provider for additional evaluation of your low oxygen, COPD, pneumonia, congestive heart failure, your kidney injury, aortic stenosis and concerning changes in your right lung with possibility of cancer. Please make sure to follow-up with cardiology regarding additional evaluation to repair the severely narrowed aortic valve, and perform additional assessment to check for any significant coronary disease which may risk heart attack, worsening of heart failure. Then please make sure to follow-up with lung doctor for additional assessment of changes in your right lung which may be concerning for underlying cancer. These assessments will need to be performed afer your heart issues are treated. Please be aware that by leaving before completion of work-up and treatment you are risking worsening of your condition, including low oxygen, blood pressures, worsening of heart failure, fainting, shock, organ injury, or number of other conditions that may result in permanent disability, or . Discharge Attestations Time Spent in Discharge Care*: greater than 30 min Quality Metrics Clinical Quality Measures During this hospital stay, did patient experience: None Coding Level of Care Code Acute Learning And Development Manager for Chg Fwd Diagnoses Acute systolic heart failure I50.21 Severe aortic valve stenosis I35.0 Acute exacerbation of chronic obstructive pulmonary disease J44.1 Cardiomyopathy as manifestation of underlying disease I43 Hemoptysis R04.2 Acute kidney injury superimposed on chronic kidney disease N17.9; N18.9
== END 2020-04-04 15:56 | disposition left against medical advice (07) | DRG 193 ==
LOC: ER 10:57 → MEDSURG 11:02
PROVIDERS: Family Medicine; Internal Medicine Nephrology; Internal Medicine Pulmonary Disease; Admitting Provider Family Medicine; PCP Internal Medicine; Visit Provider Internal Medicine
DX: J18.9 Pneumonia, unspecified organism (principal); I50.41 Acute combined systolic (congestive) and diastolic (congestive) heart failure; J96.01 Acute respiratory failure with hypoxia; J44.0 Chronic obstructive pulmonary disease with (acute) lower respiratory infection; N17.9 Acute kidney failure, unspecified; I43 Cardiomyopathy in diseases classified elsewhere; R04.2 Hemoptysis; I27.20 Pulmonary hypertension, unspecified; F17.210 Nicotine dependence, cigarettes, uncomplicated; N18.9 Chronic kidney disease, unspecified; I35.0 Nonrheumatic aortic (valve) stenosis; G62.9 Polyneuropathy, unspecified; Z53.29 Procedure and treatment not carried out because of patient's decision for other reasons; Z20.828 Contact with and (suspected) exposure to other viral communicable diseases
CPT/HCPCS: 12345; 36415; 36600; 51798; 71045; 71275; 76770; 76857; 80048; 80053; 80061; 80306; 81003; 82550; 82570; 82728; 82803; 83605; 83615; 83880; 84145; 84443; 84540; 84550; 85025; 85378; 85384; 85610; 86140; 86403; 87040; 87070; 87205; 87426; 87449; 87635; 93005; 93306; 93308; 93978; 94640; 94664; 96372; 96375; 99283; J1100; J1630; J1940; J1956; J2930; J3486; J3535; J7512; P9047; Q3014; Q9967

== ENCOUNTER 2020-04-05 06:27 | Inpatient (IN) | payer OTHER, MEDICARE, SELFPAY ==
[2020-04-05] VITALS (9 sets, daily range): BP systolic 144–169; BP diastolic 74–103; PULSE 64–83; RESP 16–26; TEMP 36.3–36.9; O2SAT 88–98; BMI 25.1
--- NOTE | 2020-04-05 06:37 | ED_ITS ---
HPI - SOB/Dyspnea General: Chief Complaint: General Medical Stated Complaint: Muscle aches/dehydration Time Seen by Provider: 04/05/20 06:30 History of Present Illness: HPI Narrative: 64-year-old male presents emergency room complaining of productive cough confusion. His sats were reported as 84% in the field on arrival here he is 88% on 2 to 3 L by nasal cannula. He left yesterday AMA from the hospital after a 7-day hospital stay for congestive heart failure COPD, Severe aortic stenosis and acute on chronic renal failure. Patient had an ejection fraction of 35% on echocardiogram. On arrival here patient is mildly disoriented and is difficult really to get him to give any significant history other than he is coughing up blood-tinged sputum. He relates that he had a procedure earlier this week at [facility] however reviewing the chart I do not see any procedures see the recommendation for heart cath and that he left the hospital AMA. MD elicited complaint: shortness of breath and cough Pertinent past history: COPD and congestive heart failure Onset (ago): day(s) Context: recent illness Timing: constant Severity: moderate Exacerbating factors: exertion, movement and coughing Relieving factors: oxygen and rest Known history of: COPD, congestive heart failure and other (Acute on chronic renal disease) Associated symptoms: Reports chest congestion, cough and hemoptysis; Deny abdominal pain, chest pain, fever(s), nausea, orthopnea or vomiting Treatment prior to arrival: oxygen Review of Systems Const: Denies: fever(s), chills, body aches, change in appetite, fatigue or malaise ENMT: Denies: throat pain, ear or mastoid pain, nasal discharge or nasal congestion Card: Denies: chest pain, edema, dyspnea on exertion or orthopnea Resp: Reports: hemoptysis and chest congestion GI: Denies: abdominal pain, nausea, vomiting, hematemesis, coffee ground emesis, diarrhea, constipation, bloating, hematochezia or melena : Denies: flank pain, dysuria, urinary frequency or urinary urgency Skin/Breast: Denies: rash or pruritus [facility] PFSH: Medical History (Updated 04/05/20 @ 12:06 by Salud Murphy DO) Cardiomyopathy as manifestation of underlying disease combined systolic and diastolic CHF COPD (chronic obstructive pulmonary disease) Peripheral neuropathy Pulmonary hypertension Severe aortic valve stenosis Surgical History History of shoulder surgery Family History Father Stroke Social History (Updated 04/05/20 @ 11:55 by Salud Murphy DO) Smoking and tobacco status: current some day smoker cigarettes Packs smoked per day: 1 Years cigarettes smoked: 50 Alcohol intake: never Substance/Drug Use: current Substance/Drug use type: Marijuana Physical Exam Const: COMMON NORMALS: no acute distress GENERAL APPEARANCE: cooperative and comfortable ORIENTATION/CONSCIOUSNESS: Yes awake, Yes oriented to person, Yes oriented to place and Yes oriented to time HENMT: COMMON NORMALS: normocephalic, atraumatic and hearing grossly normal bilaterally HEAD & SCALP: normocephalic and atraumatic Neck/C-Spine: COMMON NORMALS: no JVD Resp: AUSCULTATION: rhonchi and wheezes Cardio: COMMON NORMALS: no JVD, regular rate and regular rhythm RATE: regular rate RHYTHM: regular rhythm HEART SOUNDS: Murmur heart sound present systolic Intensity: IV/ GI: COMMON NORMALS: Soft to palpation and No hepatosplenomegaly present AUSCULTATION: Yes normoactive bowel sounds PALPATION: Yes Soft to palpation, No Tenderness to palpation present (GI), No Guarding due to palpation present (GI) and Yes No hepatosplenomegaly present Extremity: COMMON NORMALS: normal to inspection, capillary refill normal, no clubbing, cyanosis or edema, no calf tenderness and no pedal edema Neuro: SENSORIUM/ORIENTATION: Yes oriented to person, Yes oriented to place an d Yes oriented to time Skin: COMMON NORMALS: no rashes or lesions noted GENERAL SKIN EXAM: no r ashes or lesions noted Course Vital Signs: Vital signs: Vital Signs Temperature 98.5 F 04/05/20 09:32 Pulse Rate 64 04/05/20 09:32 Respiratory Rate 20 H 04/05/20 09:32 Blood Pressure 148/103 04/05/20 09:32 Pulse Oximetry 95 04/05/20 09:32 MDM - SOB/Dyspnea MDM Narrative: Medical decision making narrative: Patient left AMA yesterday is requiring oxygen again today looks like is a more consolidated pneumonia in the left upper lobe overall the chest x-ray actually looks somewhat improved. Discussed with Dr. Murphy will consult nephrology and cardiology. Lab Data: Labs: Lab Results 04/05/20 04/05/20 04/05/20 Range/Units 07:02 07:04 07:04 WBC 24.5 H (4.0-10.0) 10^3/ uL RBC 4.92 (4.1-5.3) 10^6/u L Hgb 14.2 (11.7-16.6) g/dL Hct 44.8 (42.0-52.0) % MCV 91.1 (80-94) fL MCH 28.9 (28.0-34.0) pg MCHC 31.7 (30.0-36.0) g/dL RDW 13.9 (12.1-15.1) % Plt Count 233 (130-400) 10^3/c mm MPV 11.3 H (7.4-10.4) fL Neut % (Auto) 85.1 % Lymph % (Auto) 4.7 % [place] % (Auto) 9.1 % Eos % (Auto) 0.1 % Baso % (Auto) 0.1 % Neut # (Auto) 20.86 H (1.8-7.7) 10^3/u L Lymph # (Auto) 1.2 (0.8-4.8) 10^3/u L [place] # (Auto) 2.2 H (0.2-0.9) 10^3/u L Eos # (Auto) 0.0 (0.0-0.8) 10^3/u L Baso # (Auto) 0.0 (0.0-0.1) 10^3/u L Nucleated RBC % (a uto) 0 % Nucleated RBCs # 0.0 /100WBC Specimen Type Arterial Sample Site Radial, right ABG pH 7.37 (7.35-7.45) ABG pCO2 45.4 H (35-45) mmHg ABG pO2 93.7 (80.0-100.0) mmH g ABG HCO3 26.0 (22-26) mmol/L ABG O2 Saturation 96.4 ABG Base Excess 0.2 (-2.0-2.0) mmol/ L [place] Test Pos A-a O2 Gradient 73.9 H (5-10) mmHg Hematocrit 44.7 (42-52) % Hgb O2 Saturation 94.6 L (95-100) % Carboxyhemoglobin 1.2 (0.4-20.1) %THgb Methemoglobin 0.6 (0.4-1.5) % Total Hemoglobin 14.6 (14-18) g/dL Sodium 138.0 (131-143) mmol/L Potassium 4.7 (3.5-5.0) mmol/L Glucose 103.0 (70-115) mg/dL Ionized Calcium 1.2 (1.1-1.4) mmol/L O2 Delivery Device Nrb O2 Liters/Min 15.0 % FiO2 100.0 % Shop Helper ID Gd Chloride (98-107) mmol/L Carbon Dioxide (22-29) mmol/L Anion Gap (5-19) BUN (8-23) mg/dL Creatinine (0.7-1.2) mg/dL GFR Calculation (90-130) mL/min Calculated Osmolal ity (285-295) mOsm/k g Lactic Acid 1.4 (0.5-2.2) mmol/L Calcium (8.5-10.5) mg/dL Phosphorus (2.5-4.5) mg/dL Total Bilirubin (0.15-1.2) mg/dL AST (0-40) U/L ALT (0-41) U/L Alkaline Phosphata se (40-130) IU/L Creatine Kinase (39-308) U/L Troponin T Baselin e (0-15) ng/L Total Protein (6.6-8.7) g/dL Albumin (3.5-5.2) g/dL Globulin (1.3-4.6) g/dL Procalcitonin (0-0.5) ng/mL Urine Color (Yellow) Urine Appearance (CLEAR) Urine pH (5-7) Ur Specific Gravit y (1.005-1.030) Urine Protein (Negative) Urine Glucose (UA) (Normal) Urine Ketones (Negative) Urine Blood (Negative) Urine Nitrate (Negative) Urine Bilirubin (Negative) Urine Urobilinogen (Negative) mg/dL Ur Leukocyte Thalia ase (Negative) 04/05/20 04/05/20 04/05/20 Range/Units 07:04 07:04 07:04 WBC (4.0-10.0) 10^3/ uL RBC (4.1-5.3) 10^6/u L Hgb (11.7-16.6) g/dL Hct (42.0-52.0) % MCV (80-94) fL MCH (28.0-34.0) pg MCHC (30.0-36.0) g/dL RDW (12.1-15.1) % Plt Count (130-400) 10^3/c mm MPV (7.4-10.4) fL Neut % (Auto) % Lymph % (Auto) % [place] % (Auto) % Eos % (Auto) % Baso % (Auto) % Neut # (Auto) (1.8-7.7) 10^3/u L Lymph # (Auto) (0.8-4.8) 10^3/u L [place] # (Auto) (0.2-0.9) 10^3/u L Eos # (Auto) (0.0-0.8) 10^3/u L Baso # (Auto) (0.0-0.1) 10^3/u L Nucleated RBC % (a uto) % Nucleated RBCs # /100WBC Specimen Type Sample Site ABG pH (7.35-7.45) ABG pCO2 (35-45) mmHg ABG pO2 (80.0-100.0) mmH g ABG HCO3 (22-26) mmol/L ABG O2 Saturation ABG Base Excess (-2.0-2.0) mmol/ L [place] Test A-a O2 Gradient (5-10) mmHg Hematocrit (42-52) % Hgb O2 Saturation (95-100) % Carboxyhemoglobin (0.4-20.1) %THgb Methemoglobin (0.4-1.5) % Total Hemoglobin (14-18) g/dL Sodium 138 (131-143) mmol/L Potassium 5.3 H (3.5-5.0) mmol/L Glucose 113 (70-115) mg/dL Ionized Calcium (1.1-1.4) mmol/L O2 Delivery Device O2 Liters/Min % FiO2 % Shop Helper ID Chloride 104 (98-107) mmol/L Carbon Dioxide 24 (22-29) mmol/L Anion Gap 15.3 (5-19) BUN 63 H (8-23) mg/dL Creatinine 1.4 H (0.7-1.2) mg/dL GFR Calculation 50.7 L (90-130) mL/min Calculated Osmolal ity 305 H (285-295) mOsm/k g Lactic Acid (0.5-2.2) mmol/L Calcium 8.8 (8.5-10.5) mg/dL Phosphorus (2.5-4.5) mg/dL Total Bilirubin 0.8 (0.15-1.2) mg/dL AST 51 H (0-40) U/L ALT 114 H (0-41) U/L Alkaline Phosphata se 69 (40-130) IU/L Creatine Kinase 299 (39-308) U/L Troponin T Baselin e 69 H (0-15) ng/L Total Protein 5.5 L (6.6-8.7) g/dL Albumin 3.7 (3.5-5.2) g/dL Globulin 1.8 (1.3-4.6) g/dL Procalcitonin 0.11 (0-0.5) ng/mL Urine Color (Yellow) Urine Appearance (CLEAR) Urine pH (5-7) Ur Specific Gravit y (1.005-1.030) Urine Protein (Negative) Urine Glucose (UA) (Normal) Urine Ketones (Negative) Urine Blood (Negative) Urine Nitrate (Negative) Urine Bilirubin (Negative) Urine Urobilinogen (Negative) mg/dL Ur Leukocyte Thalia ase (Negative) 04/05/20 04/05/20 Range/Units 07:09 08:58 WBC (4.0-10.0) 10^3/ uL RBC (4.1-5.3) 10^6/u L Hgb (11.7-16.6) g/dL Hct (42.0-52.0) % MCV (80-94) fL MCH (28.0-34.0) pg MCHC (30.0-36.0) g/dL RDW (12.1-15.1) % Plt Count (130-400) 10^3/c mm MPV (7.4-10.4) fL Neut % (Auto) % Lymph % (Auto) % [place] % (Auto) % Eos % (Auto) % Baso % (Auto) % Neut # (Auto) (1.8-7.7) 10^3/u L Lymph # (Auto) (0.8-4.8) 10^3/u L R[place]ie # (Auto) (0.2-0.9) 10^3/u L Eos # (Auto) (0.0-0.8) 10^3/u L Baso # (Auto) (0.0-0.1) 10^3/u L Nucleated RBC % (a uto) % Nucleated RBCs # /100WBC Specimen Type Sample Site ABG pH (7.35-7.45) ABG pCO2 (35-45) mmHg ABG pO2 (80.0-100.0) mmH g ABG HCO3 (22-26) mmol/L ABG O2 Saturation ABG Base Excess (-2.0-2.0) mmol/ L [place] Test A-a O2 Gradient (5-10) mmHg Hematocrit (42-52) % Hgb O2 Saturation (95-100) % Carboxyhemoglobin (0.4-20.1) %THgb Methemoglobin (0.4-1.5) % Total Hemoglobin (14-18) g/dL Sodium (131-143) mmol/L Potassium (3.5-5.0) mmol/L Glucose (70-115) mg/dL Ionized Calcium (1.1-1.4) mmol/L O2 Delivery Device O2 Liters/Min % FiO2 % Shop Helper ID Chloride (98-107) mmol/L Carbon Dioxide (22-29) mmol/L Anion Gap (5-19) BUN (8-23) mg/dL Creatinine (0.7-1.2) mg/dL GFR Calculation (90-130) mL/min Calculated Osmolal ity (285-295) mOsm/k g Lactic Acid (0.5-2.2) mmol/L Calcium (8.5-10.5) mg/dL Phosphorus 4.1 (2.5-4.5) mg/dL Total Bilirubin (0.15-1.2) mg/dL AST (0-40) U/L ALT (0-41) U/L Alkaline Phosphata se (40-130) IU/L Creatine Kinase (39-308) U/L Troponin T Baselin e (0-15) ng/L Total Protein (6.6-8.7) g/dL Albumin (3.5-5.2) g/dL Globulin (1.3-4.6) g/dL Procalcitonin (0-0.5) ng/mL Urine Color Yellow (Yellow) Urine Appearance Clear (CLEAR) Urine pH 5.0 (5-7) Ur Specific Gravit y 1.020 (1.005-1.030) Urine Protein Neg (Negative) Urine Glucose (UA) Norm (Normal) Urine Ketones Negative (Negative) Urine Blood Neg (Negative) Urine Nitrate Negative (Negative) Urine Bilirubin Neg (Negative) Urine Urobilinogen Norm (Negative) mg/dL Ur Leukocyte Thalia ase Negative (Negative) Discharge Plan Discharge Patient Disposition: Admitted As Inpatient Admit Provider: Salud Murphy Clinical Impression: Acute systolic heart failure, Acute exacerbation of chronic obstructive pulmonary disease, Cardiomyopathy as manifestation of underlying disease, Acute kidney injury superimposed on chronic kidney disease, COPD (chronic obstructive pulmonary disease), Pneumonia, Severe aortic valve stenosis, Smoker, Pulmonary hypertension Condition: Stable Referrals: Hubert Cifuentes [Primary Care Provider] - Discharge Date/Time: 04/05/20 09:49 Coding Level of Care Code ED Informatics Physician Liaison for Chg Fwd Exam Comprehensive
--- NOTE | 2020-04-05 06:50 | XR_ITS ---
WS: [id number] Exam: XR chest 1V portable [id number] Date/Time of Exam: 04/05/2020 7:22 AM Reason For Exam: dyspnea/cough Findings: Comparison 04/02/2020. Extensive bilateral pulmonary infiltrates are noted. There has been significant improvement previous exam. The heart is enlarged but unchanged in size. No pleural effusion or pneumothorax noted. The me diastinum and bony thorax are intact. XR/XR chest 1V portable [id number] IMPRESSION: 1. Bilateral pulmonary infiltrates which show improvement since the last exam.
--- NOTE | 2020-04-05 06:51 | ECG_ITS ---
[facility] Test Date: 2020-04-05 Pat Name: Solo Ryan Department: Room: Gender: Male [employer]: : 1955 Requested By: Hugo Arroyo Order Number: [id number] Reading MD: Measurements Intervals [place] Rate: 82 P: 50 WY: 145 QRS: 23 QRSD: 125 T: 53 QT: 380 QTc: 445 Interpretive Statements SINUS RHYTHM LEFT ATRIAL ENLARGEMENT [-0.15mV P WAVE IN V1/V2] POSSIBLE RIGHT VENTRICULAR CONDUCTION DELAY [RSR (QR) IN V1/V2] POSSIBLE LEFT VENTRICULAR HYPERTROPHY [VOLTAGE CRITERIA PLUS LAE OR QRS WIDENING] NONSPECIFIC ST & T-WAVE ABNORMALITY INTERPRETATION BASED ON A DEFAULT AGE OF 40 YEARS No previous ECG available for comparison [id number]
[2020-04-05 07:13] LABS: Basophils % 0.1 %; Eosinophils % 0.1 %; Hematocrit 44.8 % (42.0-52.0); Hemoglobin 14.2 g/dL (11.7-16.6); Lymphocytes # 1.2 10^3/uL (0.8-4.8); Lymphocytes % 4.7 %; Mean Corpuscular HGB Conc 31.7 g/dL (30.0-36.0); Mean Corpuscular Hemoglobin 28.9 pg (28.0-34.0); Mean Corpuscular Volume 91.1 fL (80-94); Mean Platelet Volume 11.3 fL (7.4-10.4); Monocytes # 2.2 10^3/uL (0.2-0.9); Monocytes % 9.1 %; Neutrophils # 20.86 10^3/uL (1.8-7.7); Neutrophils % 85.1 %; Nucleated Red Blood Cells % 0 %; Platelet Count 233 10^3/cmm (130-400); Red Blood Count 4.92 10^6/uL (4.1-5.3); Red Cell Distribution Width 13.9 % (12.1-15.1); White Blood Count 24.5 10^3/uL (4.0-10.0)
[2020-04-05 07:26] LABS: ABG PCO2 45.4 mmHg (35-45); ABG PH Result 7.37 (7.35-7.45); Alveolar-Arterial Oxygen Gradi 73.9 mmHg (5-10); Arterial Blood Gas Hematocrit 44.7 % (42-52); Base Excess ABG 0.2 mmol/L (-2.0-2.0); Blood Gas Allen Test Pos; Blood Gas Operator Identificat GD; Blood Gas Sample Site Radial, right; Blood Gas Sample Type Arterial; Carboxyhemoglobin 1.2 %THgb (0.4-20.1); HGB O2 Sat 94.6 % (95-100); Ionized Calcium Level - ABG 1.2 mmol/L (1.1-1.4); Methemoglobin 0.6 % (0.4-1.5); Oxygen Device NRB; Oxygen Saturation ABG 96.4; PO2 ABG 93.7 mmHg (80.0-100.0); Potassium Level - ABG 4.7 mmol/L (3.5-5.0); Total Hemoglobin 14.6 g/dL (14-18)
[2020-04-05 07:33] LABS: Lactic Sepsis W/Reflex 1.4 mmol/L (0.5-2.2)
[2020-04-05 07:34] LABS: Alanine Aminotransferase 114 U/L (0-41); Albumin Level 3.7 g/dL (3.5-5.2); Alkaline Phosphatase 69 IU/L (40-130); Blood Urea Nitrogen 63 mg/dL (8-23); Calcium 8.8 mg/dL (8.5-10.5); Carbon Dioxide 24 mmol/L (22-29); Chloride 104 mmol/L (98-107); Creatine Phosphokinase 299 U/L (39-308); Globulin 1.8 g/dL (1.3-4.6); Glomerular Filtration Rate 50.7 mL/min (90-130); Glucose 113 mg/dL (65-115); Osmolality Calculated 305 mOsm/kg (285-295); Sodium 138 mmol/L (136-145); Total Bilirubin 0.8 mg/dL (0.15-1.2); Total Protein 5.5 g/dL (6.6-8.7)
[2020-04-05 07:35] LABS: Anion Gap 15.3 (5-19); Aspartate Amino Transferase 51 U/L (0-40); Potassium 5.3 mmol/L (3.5-5.1); Troponin(5th) Baseline 69 ng/L (0-15)
--- NOTE | 2020-04-05 08:51 | ECG_ITS ---
[facility] Test Date: 2020-04-05 Pat Name: Solo Ryan Department: Room: Gender: Male Story Reader: : 1955 Requested By: Hugo Arroyo Order Number: [id number] Reading MD: Measurements Intervals [place] Rate: 66 P: 8 NC: 155 QRS: 56 QRSD: 121 T: -30 QT: 396 QTc: 417 Interpretive Statements SINUS RHYTHM POSSIBLE LEFT ATRIAL ENLARGEMENT [-0.1mV P WAVE IN V1/V2] INDETERMINATE AXIS POSSIBLE RIGHT VENTRICULAR CONDUCTION DELAY [RSR (QR) IN V1/V2] LEFT VENTRICULAR HYPERTROPHY AND ST-T CHANGE [VOLTAGE CRITERIA PLUS ST/T ABNORMALITY] No previous ECG available for comparison [id number]
[2020-04-05 09:01] LABS: Add Urine Microscopic? NO
[2020-04-05 09:06] LABS: Bilirubin Urine Neg (Negative); Blood Urine Neg (Negative); Glucose Urine UA Norm (Normal); Ketones Urine Negative (Negative); Leukocyte Esterase Urine Negative (Negative); Nitrate Urine Negative (Negative); Protein Urine Neg (Negative); Urine Appearance Clear (CLEAR); Urine Color Yellow (Yellow); Urobilinogen Urine Norm (Negative)
[2020-04-05] MEDS: levofloxacin-dextrose 5 % 750 MG/150 ML PREMIX 100 MG IV (09:19)
[2020-04-05 09:48] LABS: Procalcitonin 0.11 ng/mL (0-0.5)
--- NOTE | 2020-04-05 10:06 | PM.PN ---
Subjective Subjective: Interval history: pt left yesterday AMA. returned today by family for AMS, SOB. cxr w/ infiltrates. pt has sob, leukocytosis. Medications: Reviewed: Yes Medication Review Details: Current Medications Levofloxacin/Dextrose (Levaquin-D5w) 750 mg in 150 mls @ 100 mls/hr IV ONCE ONE; Protocol Stop: 04/05/20 10:27 Last Admin: 04/05/20 09:19 Dose: 100 mls/hr Documented by: Ondansetron HCl (Zofran) 4 mg IVP Q6H PRN PRN Reason: NAUSEA AND VOMITING Vitals/I&O/Wt Last Vital Signs Temp 98.5 F 04/05/20 09:32 Pulse 64 04/05/20 09:32 Resp 20 H 04/05/20 09:32 BP 148/103 04/05/20 09:32 Pulse Ox 95 04/05/20 09:32 Weight last 48 hrs Weight 79.379 kg Physical Exam Narrative: EXAM NARRATIVE: elderly man in bed, using oxygen heent- nc/at, eomi, anicteric neck supple lungs ronchi b/l heart reg, diffuse PMI abd soft, nt, nd, +BS ext no edema neuro- a,a, o x 1-2 Data : 04/05/20 07:04 04/05/20 07:04 Micro: Microbiology 04/05/20 07:04 Blood Culture - Preliminary Blood SPECIMEN COLLECTED A&P Additional A&P Information 64 yr old man 1. BUSHRA- baseline cr 1.1- sofiya to 2.2 mg /dl and improved now to 1.4 mg/dl -etiology was diuretics and ODILIA -recent renal us -one side normal kidney, second smaller -normal us 2. Leukocytosis per medicine 3. hyperkalemia- monitor on low k diet 3. CHF and - diuressi as needed per cardiology/ hospitalist -If he needs cath- inc renal risk for ODILIA. however, cr is improving. if okay w/ cardiology, use gentle ivf before and after cardiac cath 4. COPD/ pulm htn per Hospitalist 5. monitor tsh Attestations Medical Necessity Statement*: chf, copd, leukocytosis, AMS, , SOB Time Spent in Patient Care: Greater than 35 minutes Coding Level of Care Code Acute Electrician Outside for g Fannie
[2020-04-05 10:38] LABS: Phosphorus 4.1 mg/dL (2.5-4.5)
--- NOTE | 2020-04-05 11:22 | PM.HP ---
Providers/Chief Complaint Admitting Physician: Salud Murphy DO Primary Care Provider: Hubert Cifuentes Chief Complaint: Muscle aches/dehydration History of Present Illness Solo Ryan is a 64 year old male with a past medical history of recently diagnosed diastolic and systolic congestive heart failure, severe aortic stenosis and concern for underlying COPD that presented to the emergency department today for increasing shortness of breath. Patient had been hospitalized over the past 1 week and left AGAINST MEDICAL ADVICE yesterday. He stated that he was feeling restless in the hospital and did not want to stay any longer. He reported that he went home and quickly realized that he was not able to do well in his home due to his significant shortness of breath and ended up coming back to the emergency department today. Patient reports that he did not take any medications at after discharge, did not have any home oxygen. Discussed with patient concern for systolic and diastolic congestive heart failure with severe aortic stenosis, severe pulmonary hypertension and question of lung neoplasm that cannot be excluded. He verbalized understanding, he agreed with hospitalization at this time. Review of Systems Const: Denies: fever(s) or chills Eyes: Denies: change in vision ENMT: Denies: nasal congestion Card: Denies: chest pain, palpitations or edema Resp: Reports: dyspnea, productive cough and hemoptysis GI: Denies: abdominal pain, nausea, vomiting, diarrhea, constipation, hematochezia or melena : Denies: dysuria or hematuria Musc: Denies: extremity pain or muscle cramps Skin/Breast: Denies: rash or new lesions Neuro: Denies: headache(s) or dizziness Psych: Denies: anxiety or depression Endo: Denies: polyuria or hot flashes Abraham/Lymph: Denies: easy bruising or easy bleeding Medications/Allergies Home Medications Medication Instructions Recorded Confirmed Last Taken Type Unable to Assess 04/05/20 04/05/20 Unknown History Allergies Allergy/AdvReac Type Severity Reaction Status Date / Time No Known Allergies Allergy Verified 03/28/20 08:48 PFSH Acute PFSH: Medical History (Updated 04/05/20 @ 12:06 by Salud Murphy DO) Cardiomyopathy as manifestation of underlying disease combined systolic and diastolic CHF COPD (chronic obstructive pulmonary disease) Peripheral neuropathy Pulmonary hypertension Severe aortic valve stenosis Surgical History History of shoulder surgery Family History Father Stroke Social History (Updated 04/05/20 @ 11:55 by Salud Murphy DO) Smoking and tobacco status: current some day smoker cigarettes Packs smoked per day: 1 Years cigarettes smoked: 50 Alcohol intake: never Substance/Drug Use: current Substance/Drug use type: Marijuana Vitals/I&O/Wt Last Vital Signs Temp 98.5 F 04/05/20 09:32 Pulse 64 04/05/20 09:32 Resp 20 H 04/05/20 09:32 BP 148/103 04/05/20 09:32 Pulse Ox 95 04/05/20 09:32 Weight last 48 hrs Weight 79.379 kg Physical Exam Const: COMMON NORMALS: patient oriented x3 and alert GENERAL APPEARANCE: cooperative ORIENTATION/CONSCIOUSNESS: Yes awake, Yes oriented to person, Yes oriented to place and Yes oriented to time HENMT: COMMON NORMALS: normocephalic and atraumatic HEAD & SCALP: normocephalic and atraumatic Eye: COMMON NORMALS: Equal, round and reactive pupils present PUPIL: Yes Equal, round and reactive pupils present Neck/C-Spine: COMMON NORMALS: supple GENERAL: Yes normal visual inspection Resp: AUSCULTATION: no rhonchi and wheezes OTHER: Oxygen by nasal cannula in place, diminished breath sounds bilaterally with prolonged expiratory phase and end expiratory wheezing. Cardio: COMMON NORMALS: regular rate and regular rhythm RATE: regular rate RHYTHM: regular rhythm OTHER: Systolic murmur present GI: COMMON NORMALS: Soft to palpation and non-tender INSPECTION: No abdominal distension AUSCULTATION: Yes normoactive bowel sounds PALPATION: Yes Soft to palpation Extremity: COMMON NORMALS: no clubbing, cyanosis or edema and no calf tenderness Neuro: COMMON NORMALS: patient oriented x3, CN's II-XII intact bilaterally, moves all extremities and no focal motor deficits SENSORIUM/ORIENTATION: Yes alert, Yes oriented to person, Yes oriented to place and Yes oriented to time SPEECH: speech normal Psych: COMMON NORMALS: mental status grossly normal and cooperative OTHER: Anxious, restless Skin: COMMON NORMALS: no rashes or lesions noted GENERAL SKIN EXAM: no rashes or lesions noted Data : 04/05/20 07:04 04/05/20 07:04 Micro: Microbiology 04/05/20 10:06 Blood Culture - Preliminary Blood SPECIMEN COLLECTED 04/05/20 07:04 Blood Culture - Preliminary Blood SPECIMEN COLLECTED A&P Assessment and plan (1) Acute systolic heart failure: Acute on chronic systolic CHF, also diastolic dysfunction present Patient has been undergoing further cardiac work-up due to this new diagnosis Will likely need right and left heart cath, cardiology consulted, appreciate recommendations and assistance in patient's care BUN and creatinine improving, continue to hold off on diuretics at this time. Status: Acute (2) Acute exacerbation of chronic obstructive pulmonary disease: Continue with Levaquin and previously prescribed prednisone, will likely need prednisone taper Status: Acute (3) COPD (chronic obstructive pulmonary disease): Oxygen per protocol, respiratory therapy to assess and treat. Titrate oxygen with goal oxygen saturation of 90 to 92%. Status: Acute (4) Pneumonia: Bilateral infiltrate that appears to be improved on chest x-ray, continue on Levaquin. Patient was previously negative for COVID-19, recheck ordered and pending Status: Acute (5) Pulmonary hypertension: Severe pulmonary hypertension Status: Acute (6) Severe aortic valve stenosis: Follow up with cardiology recommendations Will need R and L heart cath to further evaluate Status: Acute (7) Acute kidney injury superimposed on chronic kidney disease: Creatinine improved today. BUN and creatinine both trending downward. Question of contrast-induced nephropathy versus diuresis related. Will hold off on any further JENY inhibitor or ARB despite CHF due to renal function. Nephrology was consulted during previous admission, however patient left AGAINST MEDICAL ADVICE. Consulted again this admission for close monitoring. Patient will likely require left and right heart cath which has the risk of worsening renal function, appreciate nephrology recommendations Status: Acute Additional A&P Information Leukocytosis: Likely secondary to steroids and pneumonia. Continue on antibiotics as noted above. Tobacco abuse: Strongly encourage cessation Peripheral neuropathy: Continue home gabapentin DVT prophylaxis: Heparin Diet: Cardiac, 1500 mL fluid restriction CODE STATUS: Full code Attestations Medical Necessity Statement*: Hospitalization due to CHF, COPD, pneumonia, and pulmonary HTN and severe aortic stenosis, greater than 2 midnight stay expected Coding Level of Care Code Acute Lactation Nurse for [facility] Fwd Exam Comprehensive Diagnoses Acute systolic heart failure I50.21 Acute exacerbation of chronic obstructive pulmonary disease J44.1 COPD (chronic obstructive pulmonary disease) J44.9 Pneumonia J18.9 Pulmonary hypertension I27.20 Severe aortic valve stenosis I35.0 Acute kidney injury superimposed on chronic kidney disease N17.9; N18.9
[2020-04-05 11:25] LABS: Troponin 5 2HR 69.33 ng/L (0-15); Troponin 5 2HR Delta 0.33 ABS# (0-10)
--- NOTE | 2020-04-05 11:28 | P.CONIM_ITS ---
Providers/Reason For Consult Consulting Physican/Specialty*: Cardiology Reason for Consult*: Worsening of respiratory status heart failure aortic stenosis renal failure Attending Physician: Salud Murphy DO Primary Care Provider: Hubert Cifuentes History of Present Illness History of Present Illness Solo Ryan is a 64 year old male past medical history significant for severe aortic stenosis, systolic heart failure pulmonary hypertension COPD left hospital yesterday AGAINST MEDICAL ADVICE while he was getting treated for pneumonia respiratory failure decompensated systolic heart failure and acute renal injury. He came back this morning within 24 hours as he was not able to breathe better and realized that he needs help. Due to pulmonary infiltrates and worsening of his condition he is awaiting Covid test result, it is the reason why I have not physically examined the patient source of my history and physical examination is our staff and colleagues notes. Review of Systems Const: Denies: fever(s), chills, body aches, change in appetite, fatigue or malaise Eyes: Denies: change in vision ENMT: Denies: throat pain, ear or mastoid pain, nasal discharge or nasal congestion Card: Denies: chest pain, edema, dyspnea on exertion or orthopnea Resp: Reports: hemoptysis and chest congestion GI: Denies: abdominal pain, nausea, vomiting, hematemesis, coffee ground emesis, diarrhea, constipation, bloating, hematochezia or melena : Denies: flank pain, dysuria, urinary frequency or urinary urgency Musc: Denies: extremity pain or muscle cramps Skin/Breast: Denies: rash or pruritus Neuro: Denies: headache(s) or dizziness Psych: Denies: anxiety or depression Endo: Denies: polyuria or hot flashes Abraham/Lymph: Denies: easy bruising or easy bleeding Meds/Allergies Home Medications and Allergies Home Medications Medication Instructions Recorded Confirmed Last Taken Type Unable to Assess 04/05/20 04/05/20 Unknown History Allergies Allergy/AdvReac Type Severity Reaction Status Date / Time No Known Allergies Allergy Verified 03/28/20 08:48 Additional Medication Information Current Medications Levofloxacin/Dextrose (Levaquin-D5w) 750 mg in 150 mls @ 100 mls/hr IV ONCE ONE; Protocol Stop: 04/05/20 10:27 Last Admin: 04/05/20 09:19 Dose: 100 mls/hr Documented by: Ondansetron HCl (Zofran) 4 mg IVP Q6H PRN PRN Reason: NAUSEA AND VOMITING PFSH Acute PFSH: Medical History (Updated 04/05/20 @ 12:06 by Salud Murphy DO) Cardiomyopathy as manifestation of underlying disease combined systolic and diastolic CHF COPD (chronic obstructive pulmonary disease) Peripheral neuropathy Pulmonary hypertension Severe aortic valve stenosis Surgical History History of shoulder surgery Family History Father Stroke Social History (Updated 04/05/20 @ 11:55 by Salud Murphy DO) Smoking and tobacco status: current some day smoker cigarettes Packs smoked per day: 1 Years cigarettes smoked: 50 Alcohol intake: never Substance/Drug Use: current Substance/Drug use type: Marijuana Vitals/I&O/Wt Last Vital Signs Temp 98.5 F 04/05/20 09:32 Pulse 64 04/05/20 09:32 Resp 20 H 04/05/20 09:32 BP 148/103 04/05/20 09:32 Pulse Ox 95 04/05/20 09:32 Weight last 48 hrs Weight 175 lb Data Micro: Micro: Microbiology 04/05/20 10:06 Blood Culture - Pr eliminary Blood SPECIMEN [place] FARAH 04/05/20 07:04 Blood Culture - Pr eliminary Blood SPECIMEN [facility] A&P Assessment and plan (1) Severe aortic valve stenosis: Eventually patient will be requiring aortic valve replacement he may need left and right heart cath for further investigation. Status: Acute (2) Acute exacerbation of chronic obstructive pulmonary disease: Will examine the patient once cleared by Covid test and decide regarding diuretics Status: Acute (3) Pulmonary hypertension: Continue current regimen most likely post capillary. Once stable may require right heart cath Status: Acute (4) Cardiomyopathy as manifestation of underlying disease: Need to rule out ischemic versus nonischemic cardiomyopathy with further investigation regarding left and right heart cath. Status: Acute (5) Pneumonia: Continue current regimen Status: Acute Qualifiers: Laterality: right Lung location: unspecified part of lung Pneumonia type: due to unspecified organism Qualified Code(s): J18.9 - Pneumonia, unspecified organism Consult Attestations Medical Necessity Statement: Patient require continuation hospitalization for above defined care. 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
[2020-04-05] MEDS: nicotine 21 mg Patch 1 PATCH TRANSDERMA (14:13)
[2020-04-05] MEDS: heparin 5,000 unit/mL INJ 1 mL 5000 UNIT SUBCUT (14:14)
[2020-04-05] MEDS: predniSONE 20 mg Tablet PO (14:18)
[2020-04-05] MEDS: LORazepam 0.5 mg Tablet PO (18:59)
[2020-04-05] MEDS: metoprolol tartrate 25 mg Tablet PO (18:59)
[2020-04-05] MEDS: famotidine 20 mg Tablet PO (18:59)
[2020-04-06] VITALS (7 sets, daily range): BP systolic 112–136; BP diastolic 61–87; PULSE 72–101; RESP 17–24; TEMP 36.1–37.2; O2SAT 90–99
[2020-04-06] MEDS: heparin 5,000 unit/mL INJ 1 mL 5000 UNIT SUBCUT (01:18)
[2020-04-06] MEDS: ondansetron 2 mg/ML SDV 2 mL 4 MG IVP (02:21)
[2020-04-06 05:31] LABS: Basophils % 0.1 %; Hematocrit 43.7 % (42.0-52.0); Hemoglobin 13.8 g/dL (11.7-16.6); Lymphocytes # 0.6 10^3/uL (0.8-4.8); Lymphocytes % 3.8 %; Mean Corpuscular HGB Conc 31.6 g/dL (30.0-36.0); Mean Corpuscular Volume 91.8 fL (80-94); Mean Platelet Volume 11.2 fL (7.4-10.4); Monocytes # 1.2 10^3/uL (0.2-0.9); Monocytes % 7.4 %; Neutrophils # 13.63 10^3/uL (1.8-7.7); Neutrophils % 87.6 %; Nucleated Red Blood Cells % 0 %; Platelet Count 235 10^3/cmm (130-400); Red Blood Count 4.76 10^6/uL (4.1-5.3); White Blood Count 15.6 10^3/uL (4.0-10.0)
[2020-04-06 05:54] LABS: Alanine Aminotransferase 83 U/L (0-41); Albumin Level 3.1 g/dL (3.5-5.2); Alkaline Phosphatase 61 IU/L (40-130); Anion Gap 11.3 (5-19); Aspartate Amino Transferase 24 U/L (0-40); Blood Urea Nitrogen 58 mg/dL (8-23); Calcium 8.3 mg/dL (8.5-10.5); Carbon Dioxide 29 mmol/L (22-29); Chloride 105 mmol/L (98-107); Globulin 1.6 g/dL (1.3-4.6); Glomerular Filtration Rate 46.8 mL/min (90-130); Glucose 108 mg/dL (65-115); Osmolality Calculated 307 mOsm/kg (285-295); Potassium 5.3 mmol/L (3.5-5.1); Sodium 140 mmol/L (136-145); Total Protein 4.7 g/dL (6.6-8.7)
[2020-04-06 05:55] LABS: Phosphorus 4.5 mg/dL (2.5-4.5)
--- NOTE | 2020-04-06 07:58 | PM.PN ---
Subjective Subjective: Interval history: weak in bed, comfortable, dec SAOB. no n/v/f/c/palomares/d Medications: Reviewed: Yes Medication Review Details: Current Medications Acetaminophen (Tylenol) 650 mg PO Q6H PRN PRN Reason: Mild/Mod Pain Or Temp >/= 101 Hydrocodone Bitart/Acetaminophen ([place] 5-325 Mg) 1 tab PO Q4H PRN PRN Reason: MODERATE TO SEVERE PAIN Albuterol Sulfate (Ventolin) 2 puff INHALATION Q6H.RESPIRATORY PRN PRN Reason: SHORTNESS OF BREATH Aspirin (Aspirin Ec) 81 mg PO DAILY [facility] Famotidine (Pepcid Tab) 20 mg PO BID [facility] Last Admin: 04/05/20 18:59 Dose: 20 mg Documented by: Heparin Sodium (Beef Lung) (Heparin) 5,000 unit SUBCUT Q12H [facility] Last Admin: 04/06/20 01:18 Dose: 5,000 unit Documented by: Levofloxacin/Dextrose (Levaquin-D5w) 750 mg in 150 mls @ 100 mls/hr IV Q24H [facility]; Protocol Lorazepam (Ativan) 0.5 mg PO Q6H PRN PRN Reason: ANXIETY Last Admin: 04/05/20 18:59 Dose: 0.5 mg Documented by: Metoprolol Tartrate (Lopressor) 25 mg PO BID [facility] Last Admin: 04/05/20 18:59 Dose: 25 mg Documented by: Morphine Sulfate (Morphine) 2 mg IVP Q4H PRN PRN Reason: SEVERE PAIN Naloxone HCl (Narcan) 0.1 mg IVP Q2M PRN PRN Reason: OPIATERV Nicotine (Nicoderm 21 Mg Patch) 1 patch TRANSDERMA DAILY [facility] Last Admin: 04/05/20 14:13 Dose: 1 patch Documented by: Ondansetron HCl (Zofran) 4 mg IVP Q6H PRN PRN Reason: NAUSEA AND VOMITING Last Admin: 04/06/20 02:21 Dose: 4 mg Documented by: Pantoprazole Sodium (Protonix) 40 mg PO DAILY [facility] Prednisone (Prednisone) 20 mg PO DAILY [facility] Last Admin: 04/05/20 14:18 Dose: 20 mg Documented by: Tamsulosin HCl (Flomax) 0.4 mg PO DAILY [facility] Trazodone HCl (Desyrel) 50 mg PO BEDTIME PRN PRN Reason: INSOMNIA Vitals/I&O/Wt Last Vital Signs Temp 99.0 F 04/06/20 04:00 Pulse 75 04/06/20 04:00 Resp 20 H 04/06/20 04:00 BP 122/68 04/06/20 04:00 Pulse Ox 90 04/06/20 04:00 04/05/20 04/06/20 04/06/20 22:59 06:59 14:59 Intake Total 240 / 240 Balance 240 / 240 Weight last 48 hrs Weight 81.964 kg Weight 79.379 kg Physical Exam Narrative: EXAM NARRATIVE: elderly man in bed, using oxygen- comfortable heent- nc/at, eomi, anicteric neck supple lungs ronchi b/l heart reg, diffuse PMI abd soft, nt, nd, +BS ext minimal edema neuro- a,a, o x 1-2 Data : 04/06/20 05:18 04/06/20 05:18 Micro: Microbiology 04/05/20 10:06 Blood Culture - Preliminary Blood SPECIMEN COLLECTED 04/05/20 07:04 Blood Culture - Preliminary Blood SPECIMEN COLLECTED A&P Additional A&P Information 64 yr old man 1. BUSHRA- baseline cr 1.1- sofiya to 2.2 mg /dl and improved now to 1.4 mg/dl- up to 1.5 mg/dl now -etiology was diuretics and ODILIA -recent renal us -one side normal kidney, second smaller -normal ua -will give gentle ivf -agree w/ rt heart cath 2. Leukocytosis per medicine- improved from 24 to 15 3. hyperkalemia- monitor on low k diet 3. CHF and - appreciate cardiology for rt and left heart cath when stable from ID perspective -HE is at inc renal risk for ODILIA. however, cr is improving. if okay w/ cardiology, use gentle ivf before and after cardiac cath 4. COPD/ pulm htn per Hospitalist 5. 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
[2020-04-06] MEDS: levofloxacin-dextrose 5 % 750 MG/150 ML PREMIX 100 MG IV (08:57)
[2020-04-06] MEDS: sodium chloride 0.45% 1,000 ML 75 ML IV (08:58)
[2020-04-06 09:13] LABS: Coronavirus Lab Test PTC Negative
--- NOTE | 2020-04-06 09:30 | P.PN_ITS ---
Subjective Subjective: Interval history: Patient asleep in bed at time of exam this morning. He denied any chest pain or shortness of breath at time of exam. Vitals/I&O/Wt Last Vital Signs Temp 99.0 F 04/06/20 04:00 Pulse 75 04/06/20 04:00 Resp 20 H 04/06/20 04:00 BP 122/68 04/06/20 04:00 Pulse Ox 90 04/06/20 04:00 04/05/20 04/06/20 04/06/20 22:59 06:59 14:59 Intake Total 240 / 240 0 / 0 Balance 240 / 240 0 / 0 Weight last 48 hrs Weight 81.964 kg Weight 79.379 kg Physical Exam Const: COMMON NORMALS: patient oriented x3 and alert GENERAL APPEARANCE: cooperative ORIENTATION/CONSCIOUSNESS: Yes awake, Yes oriented to person, Yes oriented to place and Yes oriented to time HENMT: COMMON NORMALS: normocephalic and atraumatic HEAD & SCALP: normocephalic and atraumatic Eye: COMMON NORMALS: Equal, round and reactive pupils present PUPIL: Yes Equal, round and reactive pupils present Neck/C-Spine: COMMON NORMALS: supple GENERAL: Yes normal visual inspection Resp: AUSCULTATION: no rhonchi and wheezes OTHER: Oxygen by nasal cannula in place, diminished breath sounds bilaterally with prolonged expiratory phase Cardio: COMMON NORMALS: regular rate and regular rhythm RATE: regular rate RHYTHM: regular rhythm OTHER: Systolic murmur present GI: COMMON NORMALS: Soft to palpation and non-tender INSPECTION: No abdominal distension AUSCULTATION: Yes normoactive bowel sounds PALPATION: Yes Soft to palpation Extremity: COMMON NORMALS: no clubbing, cyanosis or edema and no calf tenderness Neuro: COMMON NORMALS: patient oriented x3, CN's II-XII intact bilaterally, moves all extremities and no focal motor deficits SENSORIUM/ORIENTATION: Yes alert, Yes oriented to person, Yes oriented to place and Yes oriented to time SPEECH: speech normal Psych: COMMON NORMALS: mental status grossly normal and cooperative OTHER: Sleepy Skin: COMMON NORMALS: no rashes or lesions noted GENERAL SKIN EXAM: no rashes or lesions noted Data : 04/06/20 05:18 04/06/20 05:18 Micro: Microbiology 04/05/20 07:04 Blood Culture - Preliminary Blood NEGATIVE TO DATE 04/05/20 10:06 Blood Culture - Preliminary Blood SPECIMEN COLLECTED A&P Assessment and plan (1) Acute systolic heart failure: Acute on chronic systolic CHF, also diastolic dysfunction present Nephrology giving IV fluids today in preparation for left and right heart cath Status: Acute (2) Acute exacerbation of chronic obstructive pulmonary disease: Continue with Levaquin and prednisone 20 mg daily Oxygen per protocol, respiratory therapy to assess and treat, no appreciable wheezing on exam today Status: Acute (3) COPD (chronic obstructive pulmonary disease): Oxygen per protocol, respiratory therapy to assess and treat. Titrate oxygen with goal oxygen saturation of 90 to 92% Status: Acute (4) Pneumonia: Continue on Levaquin. COVID-19 testing negative Status: Acute (5) Pulmonary hypertension: Severe pulmonary hypertension Status: Acute (6) Severe aortic valve stenosis: Follow up with cardiology recommendations Will need R and L heart cath to further evaluate Status: Acute (7) Acute kidney injury superimposed on chronic kidney disease: Creatinine improved today. Giving gentle IV fluids in preparation of right and left heart cath. Will follow along with nephrology recommendations Status: Acute Additional A&P Information Leukocytosis: Likely secondary to steroids and pneumonia. Continue on antibiotics as noted above. 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
[2020-04-06] MEDS: albuterol 8 gm MDI 2 PUFF INHALATION (09:52)
[2020-04-06] MEDS: predniSONE 20 mg Tablet PO (11:09)
[2020-04-06] MEDS: sodium polystyrene sulfonate 15 gm/60 mL Btl PO (11:09)
[2020-04-06] MEDS: aspirin 81 mg EC Tablet PO (11:09)
[2020-04-06] MEDS: metoprolol tartrate 25 mg Tablet PO ×2 (11:10→18:23)
[2020-04-06] MEDS: famotidine 20 mg Tablet PO ×2 (11:10→18:23)
[2020-04-06] MEDS: tamsulosin 0.4 mg Capsule PO (11:10)
[2020-04-06] MEDS: pantoprazole DR 40 mg Tablet PO (11:11)
[2020-04-06] MEDS: nicotine 21 mg Patch 1 PATCH TRANSDERMA (11:11)
--- NOTE | 2020-04-06 18:19 | PC.RESP ---
Smoking Cessation and Pulmonary Rehab packets sent to patient.
--- NOTE | 2020-04-06 19:19 | PM.PN ---
Subjective Subjective: Interval history: Overall patient is doing fine today he is sitting in the chair denies any complaint he think he is feeling better today he is on IV fluid. Medications: Reviewed: Yes Vitals/I&O/Wt Last Vital Signs Temp 98.8 F 04/06/20 15:34 Pulse 72 04/06/20 15:34 Resp 18 04/06/20 15:34 BP 132/64 04/06/20 15:34 Pulse Ox 94 04/06/20 15:34 04/06/20 04/06/20 04/06/20 06:59 14:59 22:59 Intake Total 240 / 240 480 / 480 0 / 480 Balance 240 / 240 480 / 480 0 / 480 Weight last 48 hrs Weight 180 lb 11.2 oz Weight 175 lb Physical Exam Narrative: EXAM NARRATIVE: GENERAL: Patient is alert, awake and oriented x3. NECK: No jugular vein distension. HEENT: No cyanosis. No icterus. No pallor. HEART: Regular S1 and S2. 2/6 sys murmur, rub or gallop. LUNGS: Clear to auscultate bilaterally. ABDOMEN: Soft, nontender and nondistended. Positive bowel sounds. No guarding, rebound or tenderness. CENTRAL NERVOUS SYSTEM: Grossly nonfocal. EXTREMITIES: Lower extremities without edema bilaterally. Data : 04/06/20 05:18 04/06/20 05:18 Micro: Microbiology 04/05/20 10:06 Blood Culture - Preliminary Blood NEGATIVE TO DATE 04/05/20 07:04 Blood Culture - Preliminary Blood NEGATIVE TO DATE A&P Assessment and plan (1) Severe aortic valve stenosis: Patient has severe aortic stenosis Dr. Clay was planning to perform left and right heart cath on him currently his kidney function is not stable therefore he is getting cautiously rehydrated by nephrology. We will continue to monitor him once creatinine is back to normal we may will suggest with proceeding of left and right heart cath before aortic valve surgery recommendation. Status: Acute (2) COPD (chronic obstructive pulmonary disease): Continue as per medicine Status: Acute (3) Acute kidney injury superimposed on chronic kidney disease: Continue IV fluid as per recommendation Status: Acute (4) Acute exacerbation of chronic obstructive pulmonary disease: Well compensated continue medicine Status: Acute (5) Cardiomyopathy as manifestation of underlying disease: LV dysfunction requires further investigation through left and right heart cath to rule out between ischemic versus nonischemic or valvular cardiomyopathy. Status: Acute Attestations Medical Necessity Statement*: Patient require continuation hospitalization for above defined care. Coding Level of Care Code Established Pt Acute Hypoid Gear Tester for Marcusg Fwd Patient Type Established History Expanded Problem Focused Exam Expanded Problem Focused Medical Decision Making Moderate Complexity Diagnoses Severe aortic valve stenosis I35.0 COPD (chronic obstructive pulmonary disease) J44.9 Acute kidney injury superimposed on chronic kidney disease N17.9; N18.9 Acute exacerbation of chronic obstructive pulmonary disease J44.1 Cardiomyopathy as manifestation of underlying disease I43
[2020-04-07] VITALS: BP 118/62; PULSE 71; RESP 18; TEMP 36.6
[2020-04-07] MEDS: sodium chloride 0.45% 1,000 ML 75 ML IV (02:18)
--- NOTE | 2020-04-07 02:34 | PC.NURSE ---
Patient did not use the urinal in the restroom and flushed the toilet before it could be observed. Patient stated that he peed a little.
[2020-04-07 04:00] VITALS: BP 125/58; PULSE 69; RESP 20; TEMP 37.1; O2SAT 90
[2020-04-07 05:46] LABS: Alanine Aminotransferase 79 U/L (0-41); Albumin Level 3.1 g/dL (3.5-5.2); Alkaline Phosphatase 59 IU/L (40-130); Blood Urea Nitrogen 50 mg/dL (8-23); Calcium 8.5 mg/dL (8.5-10.5); Carbon Dioxide 27 mmol/L (22-29); Chloride 106 mmol/L (98-107); Globulin 1.6 g/dL (1.3-4.6); Glomerular Filtration Rate 46.8 mL/min (90-130); Glucose 96 mg/dL (65-115); Magnesium 2.2 mg/dL (1.7-2.3); Osmolality Calculated 303 mOsm/kg (285-295); Phosphorus 3.4 mg/dL (2.5-4.5); Sodium 140 mmol/L (136-145); Total Bilirubin 0.6 mg/dL (0.15-1.2); Total Protein 4.7 g/dL (6.6-8.7)
[2020-04-07 05:49] LABS: Anion Gap 11.9 (5-19); Aspartate Amino Transferase 48 U/L (0-40); Potassium 4.9 mmol/L (3.5-5.1)
--- NOTE | 2020-04-07 07:31 | P.PN_ITS ---
Subjective Subjective: Interval history: feels better. still swollen, less sob, eating a lot Medications: Reviewed: Yes Medication Review Details: Current Medications Acetaminophen (Tylenol) 650 mg PO Q6H PRN PRN Reason: Mild/Mod Pain Or Temp >/= 101 Hydrocodone Bitart/Acetaminophen (Lapine 5-325 Mg) 1 tab PO Q4H PRN PRN Reason: MODERATE TO SEVERE PAIN Albuterol Sulfate (Ventolin) 2 puff INHALATION Q6H.RESPIRATORY PRN PRN Reason: SHORTNESS OF BREATH Last Admin: 04/06/20 09:52 Dose: 2 puff Documented by: Aspirin (Aspirin Ec) 81 mg PO DAILY [facility] Last Admin: 04/06/20 11:09 Dose: 81 mg Documented by: Famotidine (Pepcid Tab) 20 mg PO BID [facility] Last Admin: 04/06/20 18:23 Dose: 20 mg Documented by: Heparin Sodium (Beef Lung) (Heparin) 5,000 unit SUBCUT Q12H [facility] Last Admin: 04/07/20 02:18 Dose: Not Given Documented by: Levofloxacin/Dextrose (Levaquin-D5w) 750 mg in 150 mls @ 100 mls/hr IV Q24H [facility]; Protocol Last Admin: 04/06/20 08:57 Dose: 100 mls/hr Documented by: Sodium Chloride (Sodium Chloride 0.45%) 1,000 mls @ 75 mls/hr IV .[id number] [facility] Last Admin: 04/07/20 02:18 Dose: 75 mls/hr Documented by: Lorazepam (Ativan) 0.5 mg PO Q6H PRN PRN Reason: ANXIETY Last Admin: 04/05/20 18:59 Dose: 0.5 mg Documented by: Metoprolol Tartrate (Lopressor) 25 mg PO BID [facility] Last Admin: 04/06/20 18:23 Dose: 25 mg Documented by: Morphine Sulfate (Morphine) 2 mg IVP Q4H PRN PRN Reason: SEVERE PAIN Naloxone HCl (Narcan) 0.1 mg IVP Q2M PRN PRN Reason: OPIATERV Nicotine (Nicoderm 21 Mg Patch) 1 patch TRANSDERMA DAILY [facility] Last Admin: 04/06/20 11:11 Dose: 1 patch Documented by: Ondansetron HCl (Zofran) 4 mg IVP Q6H PRN PRN Reason: NAUSEA AND VOMITING Last Admin: 04/06/20 02:21 Dose: 4 mg Documented by: Pantoprazole Sodium (Protonix) 40 mg PO DAILY [facility] Last Admin: 04/06/20 11:11 Dose: 40 mg Documented by: Prednisone (Prednisone) 20 mg PO DAILY [facility] Last Admin: 04/06/20 11:09 Dose: 20 mg Documented by: Tamsulosin HCl (Flomax) 0.4 mg PO DAILY [facility] Last Admin: 04/06/20 11:10 Dose: 0.4 mg Documented by: Trazodone HCl (Desyrel) 50 mg PO BEDTIME PRN PRN Reason: INSOMNIA Vitals/I&O/Wt Last Vital Signs Temp 98.7 F 04/07/20 04:00 Pulse 69 04/07/20 04:00 Resp 20 H 04/07/20 04:00 BP 125/58 04/07/20 04:00 Pulse Ox 90 04/07/20 04:00 04/06/20 04/07/20 04/07/20 22:59 06:59 14:59 Intake Total 1000 / 1480 Output Total 200 / 200 Balance 1000 / 1480 -200 / 1280 Weight last 48 hrs Weight 81.374 kg Weight 81.964 kg Physical Exam Narrative: EXAM NARRATIVE: appears older than stated age sitting up using oxygen- comfortable heent- nc/at, eomi, anicteric neck supple lungs ronchi b/l heart reg, diffuse PMI abd soft, nt, nd, +BS ext + b/l edema in arms and legs neuro- a,a, o x 2 Data : 04/06/20 05:18 04/07/20 04:20 Micro: Microbiology 04/05/20 10:06 Blood Culture - Preliminary Blood NEGATIVE TO DATE 04/05/20 07:04 Blood Culture - Preliminary Blood NEGATIVE TO DATE A&P Additional A&P Information 64 yr old man 1. BUSHRA- baseline cr 1.1- sofiya to 2.2 mg /dl and improved now to 1.4 mg/dl- up to 1.5 mg/dl now -etiology was diuretics and ODILIA -recent renal us -one side normal kidney, second smaller -normal ua -d/c ivf -agree w/ rt heart cath u/a normal 2. Leukocytosis per medicine- improved from 24 to 15- pna and rsp status improving w/ levaquin 3. hyperkalemia- monitor on low k diet 3. CHF and - appreciate cardiology for rt and left heart cath when stable from ID perspective -HE is at inc renal risk for ODILIA. however, cr is improving. if okay w/ cardiology, use gentle ivf for 6 hrs before and after cardiac cath 4. COPD/ pulm htn per Hospitalist 5. monitor tsh 6. mild bump in lft's Attestations Medical Necessity Statement*: resp distress, CHF per hospitalist Time Spent in Patient Care: 16 - 35 minutes Coding Level of Care Code Acute [employer] And Deck Remover for Chg Fannie
[2020-04-07 07:57] VITALS: BP 146/74; PULSE 68; RESP 15; TEMP 36.9; O2SAT 93
[2020-04-07 09:07] VITALS: PULSE 82; RESP 14; O2SAT 92
--- NOTE | 2020-04-07 09:08 | PM.PN ---
Subjective Subjective: Interval history: Patient was sitting on side of bed this morning at time of exam. He denied any chest pain. Reported cough is much improved, scant sputum production, denies any further hemoptysis. Discussed with patient concern for chronic kidney disease but the need for further cardiac catheterization, he verbalized understanding agreed with further cardiac work-up. Vitals/I&O/Wt Last Vital Signs Temp 98.5 F 04/07/20 07:57 Pulse 68 04/07/20 07:57 Resp 15 04/07/20 07:57 BP 146/74 04/07/20 07:57 Pulse Ox 93 04/07/20 07:57 04/06/20 04/07/20 04/07/20 22:59 06:59 14:59 Intake Total 1000 / 1480 240 / 240 Output Total 200 / 200 Balance 1000 / 1480 -200 / 1280 240 / 240 Weight last 48 hrs Weight 81.374 kg Weight 81.964 kg Physical Exam Const: COMMON NORMALS: patient oriented x3 and alert GENERAL APPEARANCE: cooperative ORIENTATION/CONSCIOUSNESS: Yes awake, Yes oriented to person, Yes oriented to place and Yes oriented to time HENMT: COMMON NORMALS: normocephalic and atraumatic HEAD & SCALP: normocephalic and atraumatic Eye: COMMON NORMALS: Equal, round and reactive pupils present PUPIL: Yes Equal, round and reactive pupils present Neck/C-Spine: COMMON NORMALS: supple GENERAL: Yes normal visual inspection Resp: AUSCULTATION: no rhonchi and no wheezes OTHER: Oxygen by nasal cannula in place, diminished breath sounds bilaterally with prolonged expiratory phase Cardio: COMMON NORMALS: regular rate and regular rhythm RATE: regular rate RHYTHM: regular rhythm OTHER: Systolic murmur present GI: COMMON NORMALS: Soft to palpation and non-tender INSPECTION: No abdominal distension AUSCULTATION: Yes normoactive bowel sounds PALPATION: Yes Soft to palpation Extremity: COMMON NORMALS: no clubbing, cyanosis or edema and no calf tenderness Neuro: COMMON NORMALS: patient oriented x3, CN's II-XII intact bilaterally, moves all extremities and no focal motor deficits SENSORIUM/ORIENTATION: Yes alert, Yes oriented to person, Yes oriented to place and Yes oriented to time SPEECH: speech normal Psych: COMMON NORMALS: mental status grossly normal and cooperative Skin: COMMON NORMALS: no rashes or lesions noted GENERAL SKIN EXAM: no rashes or lesions noted Data : 04/06/20 05:18 04/07/20 04:20 Micro: Microbiology 04/05/20 10:06 Blood Culture - Preliminary Blood NEGATIVE TO DATE 04/05/20 07:04 Blood Culture - Preliminary Blood NEGATIVE TO DATE A&P Assessment and plan (1) Acute systolic heart failure: Acute on chronic systolic CHF, also diastolic dysfunction present Continue with gentle IV fluids per nephrology in preparation of right and left heart cath Status: Acute (2) Acute exacerbation of chronic obstructive pulmonary disease: Continue with Levaquin and prednisone 20 mg daily, continue taper down on steroids Oxygen per protocol, respiratory therapy to assess and treat. Goal oxygen saturation of 90 to 92% Status: Acute (3) COPD (chronic obstructive pulmonary disease): Plan as above Status: Acute (4) Pneumonia: Continue on Levaquin. COVID-19 testing negative Status: Acute (5) Pulmonary hypertension: Severe pulmonary hypertension Status: Acute (6) Severe aortic valve stenosis: Follow up with cardiology recommendations Will need R and L heart cath to further evaluate Status: Acute (7) Acute kidney injury superimposed on chronic kidney disease: Renal function continues to improve, continue with gentle IV fluids per nephrology. Status: Acute Additional A&P Information Leukocytosis: Likely secondary to steroids and pneumonia. Continue on antibiotics as noted above. Tobacco abuse: Strongly encourage cessation Peripheral neuropathy: Continue home gabapentin DVT prophylaxis: Heparin Diet: Cardiac, 1500 mL fluid restriction CODE STATUS: Full code Attestations Medical Necessity Statement*: Patient requires hospitalization due to acute on chronic kidney injury, systolic and diastolic CHF, severe aortic stenosis with need for further cardiac work-up. Coding Level of Care Code Acute Lead Care Manager for Janay Greco Diagnoses Acute systolic heart failure I50.21 Acute exacerbation of chronic obstructive pulmonary disease J44.1 COPD (chronic obstructive pulmonary disease) J44.9 Pneumonia J18.9 Pulmonary hypertension I27.20 Severe aortic valve stenosis I35.0 Acute kidney injury superimposed on chronic kidney disease N17.9; N18.9
[2020-04-07] MEDS: metoprolol tartrate 25 mg Tablet PO (09:10)
[2020-04-07] MEDS: tamsulosin 0.4 mg Capsule PO (09:10)
[2020-04-07] MEDS: predniSONE 20 mg Tablet PO (09:11)
[2020-04-07] MEDS: levofloxacin-dextrose 5 % 750 MG/150 ML PREMIX 100 MG IV (09:11)
[2020-04-07] MEDS: pantoprazole DR 40 mg Tablet PO (09:11)
[2020-04-07] MEDS: famotidine 20 mg Tablet PO (09:11)
[2020-04-07] MEDS: nicotine 21 mg Patch 1 PATCH TRANSDERMA (09:11)
[2020-04-07] MEDS: aspirin 81 mg EC Tablet PO (09:11)
[2020-04-07 11:24] VITALS: BP 183/78; PULSE 74; RESP 16; TEMP 36.6; O2SAT 86
--- NOTE | 2020-04-07 11:25 | PC.NURSE ---
Patient stating they are leaving here, going to go to [facility]. Dr Murphy notified. Dr Murphy to patients room.
--- NOTE | 2020-04-07 12:28 | PM.DCS ---
Discharge Providers Date of Admission: 04/05/20 09:02 Date of Discharge: April 07, 2020 Attending Provider at Admission: Salud Murphy DO Attending Provider at Discharge: Salud Murphy DO Primary Care Provider: Hubert Cifuentes Diagnoses at Discharge Discharge Diagnosis (1) Acute systolic heart failure: Status: Acute (2) Acute exacerbation of chronic obstructive pulmonary disease: Status: Acute (3) COPD (chronic obstructive pulmonary disease): Status: Acute (4) Pneumonia: Status: Acute (5) Pulmonary hypertension: Status: Acute (6) Severe aortic valve stenosis: Status: Acute (7) Acute kidney injury superimposed on chronic kidney disease: Status: Acute Reason for Visit Reason for Visit: Muscle aches/dehydration Hospital Course Hospital Course: Patient was seen and evaluated in the emergency department after leaving the hospital AGAINST MEDICAL ADVICE. He returned with increasing shortness of breath. Patient was admitted again to the hospital had nephrology and cardiology consulted due to his concern for severe aortic stenosis, systolic and diastolic congestive heart failure as well as severe pulmonary hypertension he was recommended to be admitted and he agreed at that time. He was monitored closely given supplemental oxygen and continued to treat for pneumonia and COPD exacerbation with Levaquin and prednisone. His oxygen was weaned as tolerated. Patient required further hospitalization for further work-up due to severe aortic stenosis, systolic and diastolic congestive heart failure and acute on chronic kidney injury. Patient was doing well on morning today but then in the afternoon after discussing cardiac cath he reported that he could not stay in the hospital any longer. Physician went and discussed with him the risk of leaving AGAINST MEDICAL ADVICE including , he verbalized understanding. He stated that he could not stay in the hospital any longer and could not undergo a procedure. He stated that he was leaving AGAINST MEDICAL ADVICE and there was nothing that we could do to keep him to stay longer. Discussion with patient at bedside he remained calm and understood the risk of leaving. Counseled him on the risk of leaving the hospital and the risk of continued smoking with the concerns that he has ongoing, he verbalized understanding. Patient ultimately stated that he was thankful for the care that he has received but he cannot stay in the hospital any longer, he kissed this physician on the hand and again thanked everyone for the care that he is received but ultimately left the hospital AGAINST MEDICAL ADVICE. Physical Exam Narrative: EXAM NARRATIVE: See physical exam documented on date of patient leaving AGAINST MEDICAL ADVICE Discharge Data Data Completed and Pending: Completed Studies During Hospitalization Category Date Time Status XR chest 1V abby ble [id number] Stat Exams 04/05/20 06:50 Completed Pending at discharge Category Date Time Status Blood Culture Sta t Lab 04/05/20 10:06 Results Complete Blood Co unt w/Auto AM LABS Lab 04/08/20 04:00 Ordered Comprehensive Met abolic Panel AM LA BS Lab 04/08/20 04:00 Ordered Comprehensive Met abolic Panel AM LA BS Lab 04/09/20 04:00 Ordered Magnesium AM LABS Lab 04/08/20 04:00 Ordered Magnesium AM LABS Lab 04/09/20 04:00 Ordered Phosphorus AM LAB S Lab 04/08/20 04:00 Ordered Phosphorus AM LAB S Lab 04/08/20 04:00 Ordered Phosphorus AM LAB S Lab 04/09/20 04:00 Ordered Sputum Culture an d Gram Stain Stat Lab 04/05/20 08:52 Uncollected Labs from last 24 hours 04/07/20 04:20 Sodium 140 Potassium 4.9 Chloride 106 Carbon Dioxide 27 Anion Gap 11.9 BUN 50 H Creatinine 1.5 H GFR Calculation 46.8 L Glucose 96 Calculated Osmolal ity 303 H Calcium 8.5 Phosphorus 3.4 Magnesium 2.2 Total Bilirubin 0.6 AST 48 H ALT 79 H Alkaline Phosphata se 59 Total Protein 4.7 L Albumin 3.1 L Globulin 1.6 Vitals: Last Vital Signs Temp 97.9 F 04/07/20 11:24 Pulse 74 04/07/20 11:24 Resp 16 04/07/20 11:24 BP 183/78 04/07/20 11:24 Pulse Ox 86 L 04/07/20 11:24 Discharge Plan Discharge Patient Disposition: Left Against Medical Advice Condition: Fair Prescriptions: New prednisone 10 mg Tablet 10 mg PO DAILY 6 Days Qty: 0 RF: 0 aspirin 81 mg Tablet,Delayed Release (Dr/Ec) 81 mg PO DAILY 30 Days Qty: 0 RF: 0 metoprolol tartrate 25 mg Tablet 25 mg PO BID 30 Days Qty: 60 RF: 0 tamsulosin 0.4 mg Capsule 0.4 mg PO DAILY 30 Days Qty: 30 RF: 0 levofloxacin 750 mg tablet 750 mg PO DAILY 4 Days Qty: 4 RF: 0 Referrals: Hubert Cifuentes [Primary Care Provider] - Discharge Attestations Time Spent in Discharge Care*: greater than 30 min Status at Discharge: Cognitive status at discharge: cognitively intact, Quality Metrics Clinical Quality Measures During this hospital stay, did patient experience: None Coding Level of Care Code Acute Subway Car Repairer for Janay Greco Diagnoses Acute systolic heart failure I50.21 Acute exacerbation of chronic obstructive pulmonary disease J44.1 COPD (chronic obstructive pulmonary disease) J44.9 Pneumonia J18.9 Pulmonary hypertension I27.20 Severe aortic valve stenosis I35.0 Acute kidney injury superimposed on chronic kidney disease N17.9; N18.9
--- NOTE | 2020-04-07 12:48 | P.PN_ITS ---
Subjective Subjective: Interval history: Patient is readmitted to the hospital with worsening shortness of breath. He was found to have features of COPD exacerbation /CHF . Currently he seems to be improving. He still has significant shortness of breath with activities. His BUN/creatinine is improving. Kidney function also seems to be somewhat better Medications: Reviewed: Yes Medication Review Details: Current Medications Acetaminophen (Tylenol) 650 mg PO Q6H PRN PRN Reason: Mild/Mod Pain Or Temp >/= 101 Hydrocodone Bitart/Acetaminophen ([place] 5-325 Mg) 1 tab PO Q4H PRN PRN Reason: MODERATE TO SEVERE PAIN Albuterol Sulfate (Ventolin) 2 puff INHALATION Q6H.RESPIRATORY PRN PRN Reason: SHORTNESS OF BREATH Last Admin: 04/06/20 09:52 Dose: 2 puff Documented by: Aspirin (Aspirin Ec) 81 mg PO DAILY PENDING SALE TO [facility] Last Admin: 04/07/20 09:11 Dose: 81 mg Documented by: Famotidine (Pepcid Tab) 20 mg PO BID PENDING SALE TO [facility] Last Admin: 04/07/20 09:11 Dose: 20 mg Documented by: Heparin Sodium (Beef Lung) (Heparin) 5,000 unit SUBCUT Q12H PENDING SALE TO [facility] Last Admin: 04/07/20 02:18 Dose: Not Given Documented by: Levofloxacin/Dextrose (Levaquin-D5w) 750 mg in 150 mls @ 100 mls/hr IV Q24H PENDING SALE TO [facility]; Protocol Last Admin: 04/07/20 09:11 Dose: 100 mls/hr Documented by: Lorazepam (Ativan) 0.5 mg PO Q6H PRN PRN Reason: ANXIETY Last Admin: 04/05/20 18:59 Dose: 0.5 mg Documented by: Metoprolol Tartrate (Lopressor) 25 mg PO BID PENDING SALE TO [facility] Last Admin: 04/07/20 09:10 Dose: 25 mg Documented by: Morphine Sulfate (Morphine) 2 mg IVP Q4H PRN PRN Reason: SEVERE PAIN Naloxone HCl (Narcan) 0.1 mg IVP Q2M PRN PRN Reason: OPIATERV Nicotine (Nicoderm 21 Mg Patch) 1 patch TRANSDERMA DAILY PENDING SALE TO [facility] Last Admin: 04/07/20 09:11 Dose: 1 patch Documented by: Ondansetron HCl (Zofran) 4 mg IVP Q6H PRN PRN Reason: NAUSEA AND VOMITING Last Admin: 04/06/20 02:21 Dose: 4 mg Documented by: Pantoprazole Sodium (Protonix) 40 mg PO DAILY PENDING SALE TO [facility] Last Admin: 04/07/20 09:11 Dose: 40 mg Documented by: Prednisone (Prednisone) 10 mg PO DAILY PENDING SALE TO [facility] Sodium Chloride ([place] Nasal [place]) 1 spray NASAL PRN PRN PRN Reason: DRYNESS Tamsulosin HCl (Flomax) 0.4 mg PO DAILY PENDING SALE TO [facility] Last Admin: 04/07/20 09:10 Dose: 0.4 mg Documented by: Trazodone HCl (Desyrel) 50 mg PO BEDTIME PRN PRN Reason: INSOMNIA Vitals/I&O/Wt Last Vital Signs Temp 97.9 F 04/07/20 11:24 Pulse 74 04/07/20 11:24 Resp 16 04/07/20 11:24 BP 183/78 04/07/20 11:24 Pulse Ox 86 L 04/07/20 11:24 04/06/20 04/07/20 04/07/20 22:59 06:59 14:59 Intake Total 1000 / 1630 240 / 240 Output Total 200 / 200 Balance 1000 / 1630 -200 / 1430 240 / 240 Weight last 48 hrs Weight 179 lb 6.4 oz Weight 180 lb 11.2 oz Physical Exam Narrative: EXAM NARRATIVE: GENERAL: The patient is alert and oriented times three. Slightly tachypneic HEENT: Minimal pallor. No icterus or lymphadenopathy.Oral cavity: There are no mucous membrane lesions. NECK: Trachea appears to be central. No masses noted. No JVD or thyromegaly appreciated. RESPIRATORY: Chest is symmetrical. No intercostals muscle retraction or any accessory muscle activation. There is no chest wall tenderness. Breath sounds are heard bilaterally. Occasional expiratory wheezing. Density of the breath sounds are diminished in the bases. BREASTS: Deferred. [] HEART: The heart sounds are normal. No S3 or S4. Ejection systolic murmur grade 4/6 in the aortic area. No diastolic murmurs. No pericardial rub ABDOMEN: No vessel pulsations or distention. No tenderness. No organomegaly appreciated. Bowel sounds are normally heard. [] : Deferred. [] RECTAL: Deferred. [] LYMPHATIC: No lymphadenopathy noted in the neck or groin. [] EXTREMITIES: No edema or cyanosis. Peripheral pulses are palpable but weak bilaterally MUSCULOSKELETAL: No acute joint deformities or swelling SKIN: There are no significant rashes or ecchymosis NEUROPSYCHIATRIC: The patient is alert and oriented x3. Appears to be in a good mood. No tremors or rigidity noted. [] Data : 04/06/20 05:18 04/07/20 04:20 Other Labs: Laboratory Last Values WBC 15.6 10^3/uL (4.0-10.0) H 04/06/20 05:18 RBC 4.76 10^6/uL (4.1-5.3) 04/06/20 05:18 Hgb 13.8 g/dL (11.7-16.6) 04/06/20 05:18 Hct 43.7 % (42.0-52.0) 04/06/20 05:18 MCV 91.8 fL (80-94) 04/06/20 05:18 MCH 29.0 pg (28.0-34.0) 04/06/20 05:18 MCHC 31.6 g/dL (30.0-36.0) 04/06/20 05:18 RDW 14.0 % (12.1-15.1) 04/06/20 05:18 Plt Count 235 10^3/cmm (130-400) 04/06/20 05:18 MPV 11.2 fL (7.4-10.4) H 04/06/20 05:18 Neut % (Auto) 87.6 % 04/06/20 05:18 Lymph % (Auto) 3.8 % 04/06/20 05:18 [place] % (Auto) 7.4 % 04/06/20 05:18 Eos % (Auto) 0.0 % 04/06/20 05:18 Baso % (Auto) 0.1 % 04/06/20 05:18 Neut # (Auto) 13.63 10^3/uL (1.8-7.7) H 04/06/20 05:18 Lymph # (Auto) 0.6 10^3/uL (0.8-4.8) L 04/06/20 05:18 [place] # (Auto) 1.2 10^3/uL (0.2-0.9) H 04/06/20 05:18 Eos # (Auto) 0.0 10^3/uL (0.0-0.8) 04/06/20 05:18 Baso # (Auto) 0.0 10^3/uL (0.0-0.1) 04/06/20 05:18 Nucleated RBC % (auto) 0 % 04/06/20 05:18 Nucleated RBCs # 0.0 /100WBC 04/06/20 05:18 Specimen Type Arterial 04/05/20 07:02 Sample Site Radial, right 04/05/20 07:02 ABG pH 7.37 (7.35-7.45) 04/05/20 07:02 ABG pCO2 45.4 mmHg (35-45) H 04/05/20 07:02 ABG pO2 93.7 mmHg (80.0-100.0) 04/05/20 07:02 ABG HCO3 26.0 mmol/L (22-26) 04/05/20 07:02 ABG O2 Saturation 96.4 04/05/20 07:02 ABG Base Excess 0.2 mmol/L (-2.0-2.0) 04/05/20 07:02 [place] Test Pos 04/05/20 07:02 A-a O2 Gradient 73.9 mmHg (5-10) H 04/05/20 07:02 Hematocrit 44.7 % (42-52) 04/05/20 07:02 Hgb O2 Saturation 94.6 % (95-100) L 04/05/20 07:02 Carboxyhemoglobin 1.2 %THgb (0.4-20.1) 04/05/20 07:02 Methemoglobin 0.6 % (0.4-1.5) 04/05/20 07:02 Total Hemoglobin 14.6 g/dL (14-18) 04/05/20 07:02 Sodium 138.0 mmol/L (131-143) 04/05/20 07:02 Potassium 4.7 mmol/L (3.5-5.0) 04/05/20 07:02 Glucose 103.0 mg/dL (70-115) 04/05/20 07:02 Ionized Calcium 1.2 mmol/L (1.1-1.4) 04/05/20 07:02 O2 Delivery Device Nrb 04/05/20 07:02 O2 Liters/Min 15.0 % 04/05/20 07:02 FiO2 100.0 % 04/05/20 07:02 Supervisor Receiving And Processing ID Gd 04/05/20 07:02 Sodium 140 mmol/L (136-145) 04/07/20 04:20 Potassium 4.9 mmol/L (3.5-5.1) 04/07/20 04:20 Chloride 106 mmol/L (98-107) 04/07/20 04:20 Carbon Dioxide 27 mmol/L (22-29) 04/07/20 04:20 Anion Gap 11.9 (5-19) 04/07/20 04:20 BUN 50 mg/dL (8-23) H 04/07/20 04:20 Creatinine 1.5 mg/dL (0.7-1.2) H 04/07/20 04:20 GFR Calculation 46.8 mL/min (90-130) L 04/07/20 04:20 Glucose 96 mg/dL (65-115) 04/07/20 04:20 Calculated Osmolality 303 mOsm/kg (285-295) H 04/07/20 04:20 Lactic Acid 1.4 mmol/L (0.5-2.2) 04/05/20 07:04 Calcium 8.5 mg/dL (8.5-10.5) 04/07/20 04:20 Phosphorus 3.4 mg/dL (2.5-4.5) 04/07/20 04:20 Magnesium 2.2 mg/dL (1.7-2.3) 04/07/20 04:20 Total Bilirubin 0.6 mg/dL (0.15-1.2) 04/07/20 04:20 AST 48 U/L (0-40) H 04/07/20 04:20 ALT 79 U/L (0-41) H 04/07/20 04:20 Alkaline Phosphatase 59 IU/L (40-130) 04/07/20 04:20 Creatine Kinase 299 U/L (39-308) 04/05/20 07:04 Troponin T Baseline 69 ng/L (0-15) H 04/05/20 07:04 Troponin T 120 Minute 69.33 ng/L (0-15) H 04/05/20 10:06 Delta Troponin T 0.33 ABS# (0-10) 04/05/20 10:06 Troponin T Hi Sens 6Hr 68.00 ng/L (0-15) H 04/05/20 13:47 Troponin T Hi Sens 6Hr Delta -1.00 ng/L (0-12) L 04/05/20 13:47 NT-Pro-B Natriuret Pep 99450 pg/mL (0-125) H 04/05/20 07:04 Total Protein 4.7 g/dL (6.6-8.7) L 04/07/20 04:20 Albumin 3.1 g/dL (3.5-5.2) L 04/07/20 04:20 Globulin 1.6 g/dL (1.3-4.6) 04/07/20 04:20 Procalcitonin 0.11 ng/mL (0-0.5) 04/05/20 07:04 Urine Color Yellow (Yellow) 04/05/20 08:58 Urine Appearance Clear (CLEAR) 04/05/20 08:58 Urine pH 5.0 (5-7) 04/05/20 08:58 Ur Specific [place] 1.020 (1.005-1.030) 04/05/20 08:58 Urine Protein Neg (Negative) 04/05/20 08:58 Urine Glucose (UA) Norm (Normal) 04/05/20 08:58 Urine Ketones Negative (Negative) 04/05/20 08:58 Urine Blood Neg (Negative) 04/05/20 08:58 Urine Nitrate Negative (Negative) 04/05/20 08:58 Urine Bilirubin Neg (Negative) 04/05/20 08:58 Urine Urobilinogen Norm mg/dL (Negative) 04/05/20 08:58 Ur Leukocyte Esterase Negative (Negative) 04/05/20 08:58 Nasal/Oral COVID-19 PCR Negative 04/05/20 09:25 Micro: Microbiology 04/05/20 10:06 Blood Culture - Preliminary Blood NEGATIVE TO DATE 04/05/20 07:04 Blood Culture - Preliminary Blood NEGATIVE TO DATE A&P Assessment and plan (1) Acute on chronic systolic heart failure: The heart failure seems to be clinically getting compensated. Most likely is related to the severe aortic valve stenosis, LV systolic dysfunction and COPD exacerbation. Status: Acute (2) Severe aortic valve stenosis: Patient requires aortic valve intervention. This was discussed with the patient. He is wanting to have this done at the [facility]. Status: Acute (3) Acute kidney injury superimposed on chronic kidney disease: The BUN and creatinine levels are coming down. Status: Acute (4) COPD (chronic obstructive pulmonary disease): Patient is on bronchodilator treatment and oxygen Status: Acute Qualifiers: COPD type: chronic bronchitis Chronic bronchitis type: unspecified Qualified Code(s): J42 - Unspecified chronic bronchitis Additional A&P Information I discussed with the patient in detail the need for further cardiac evaluation and management. He requires a cardiac catheterization, to further evaluate his coronary status and also hemodynamics. He requires aortic valve intervention possibly TAVR for the severe stenosis. Patient is planning to have this done at the [facility] in [place]. But he is wanting to go home first. He seems understand implications. In view of his recurrent episodes of decompensated heart failure, he requires the cardiac work- up as early as possible. This was discussed in detail. Disposition as per Dr. Murphy Attestations Medical Necessity Statement*: Disposition as per Dr. Murphy Coding Level of Care Code Acute Bilingual Customer Service for [facility] Fwd Diagnoses Acute on chronic systolic heart failure I50.23 Severe aortic valve stenosis I35.0 Acute kidney injury superimposed on chronic kidney disease N17.9; N18.9 COPD (chronic obstructive pulmonary disease) J42 COPD type: chronic bronchitis Chronic bronchitis type: unspecified
--- NOTE | 2020-04-07 13:00 | PC.NURSE ---
He didn't want a tray since he is leaving later
[2020-04-07] MEDS: heparin 5,000 unit/mL INJ 1 mL 5000 UNIT SUBCUT (13:04)
--- NOTE | 2020-04-07 13:30 | PC.NURSE ---
Pt left AMA, pt to main entrance via wheelchair .
[2020-04-07 13:43] VITALS: BP 183/78; PULSE 74; RESP 16; TEMP 36.6; O2SAT 86
== END 2020-04-07 13:40 | disposition left against medical advice (07) | DRG 291 ==
LOC: ER 09:10 → MEDSURG 09:18
PROVIDERS: Family Medicine; Internal Medicine Nephrology; Admitting Provider Family Medicine; PCP Internal Medicine; Visit Provider Family Medicine
DX: I13.0 Hypertensive heart and chronic kidney disease with heart failure and stage 1 through stage 4 chronic kidney disease, or unspecified chronic kidney disease (principal); I50.43 Acute on chronic combined systolic (congestive) and diastolic (congestive) heart failure; J18.9 Pneumonia, unspecified organism; J44.1 Chronic obstructive pulmonary disease with (acute) exacerbation; J44.0 Chronic obstructive pulmonary disease with (acute) lower respiratory infection; N17.9 Acute kidney failure, unspecified; N18.9 Chronic kidney disease, unspecified; I35.0 Nonrheumatic aortic (valve) stenosis; I27.20 Pulmonary hypertension, unspecified; G62.9 Polyneuropathy, unspecified; F17.210 Nicotine dependence, cigarettes, uncomplicated; F12.90 Cannabis use, unspecified, uncomplicated; Z53.29 Procedure and treatment not carried out because of patient's decision for other reasons
CPT/HCPCS: 12345; 36415; 36600; 71045; 80051; 80053; 81003; 82550; 82810; 83605; 83735; 83880; 83986; 84100; 84145; 84484; 85025; 87040; 87635; 93005; 94640; 94664; 96372; 96375; 99284; J1644; J1956; J2405; J7512

== ENCOUNTER → 2020-04-19 11:20 | Outpatient (BNVA) | payer OTHER, MEDICARE, SELFPAY | PROVIDERS: PCP Internal Medicine; Visit Provider Internal Medicine Cardiovascular Disease | DX: I50.23 Acute on chronic systolic (congestive) heart failure (principal); I50.33 Acute on chronic diastolic (congestive) heart failure; Z79.01 Long term (current) use of anticoagulants | CPT/HCPCS: 80053; 83880; 85025 ==

== ENCOUNTER 2020-05-09 08:26 | Outpatient (CLI) | payer OTHER, MEDICARE, SELFPAY ==
--- NOTE | 2020-05-09 09:27 | CT_ITS ---
WS: [id number] CT CHEST WITH INTRAVENOUS CONTRAST HISTORY: POSSIBLE LUNG MASS TECHNIQUE: Contiguous 5 mm axial imaging performed on the thorax. Coronal and sagittal reformats are submitted. All CT scans at [facility] use at least one of these dose optimization techniq ues: automated exposure control; mA and/or kV adjustment per patient size (includes targeted exams wh ere dose is matched to clinical indication); or iterative reconstruction. CONTRAST: Omnipaque 300; 95 mL IV. DLP: 834.37 mGycm COMPARISON: 03/28/2020 Lungs and central airway: Variable changes within the lungs since the prior study. There are areas of improvement and progression of disease. There is evidence for chronic emphysema. Biapical pleural th ickening and scarring. The dense area of consolidation in the RIGHT upper lobe has significantly impr roro. 14 mm ovoid nodule is now evident in the central RIGHT upper lobe, image 15 of series 3. There are a few patchy scattered opacifications in the periphery of the middle and RIGHT lower lobes. Previ ously described effusion has resolved. Progression of the LEFT upper lobe opacification. There are sc attered opacifications in the periphery which have progressed. There is a small new LEFT pleural effu magdaleno. Pleura: Resolved RIGHT pleural effusion and new small LEFT pleural effusion. Heart and pericardium: Markedly enlarged heart. Small pericardial effusion. Mediastinum and lesia: Overall improvement in the soft tissue circumferentially encasing the bronchova scular structures at the RIGHT hilum. There is still mild lymphoid type thickening. Largest lymph nod e at the RIGHT hilum measures up to 14 mm. Vessels: Mild atherosclerosis aorta. No aneurysm. Normal size pulmonary artery. Chest wall and lower neck: No soft tissue masses. Upper abdomen: Continued atherosclerosis into the suprarenal aorta. No adrenal mass. Small cyst LEFT lobe of the liver. Osseous structures: Thoracic spondylosis. No bone destruction. CT/CT chest w con* [id number] IMPRESSION: 1. Significant improvement in aeration in the RIGHT upper lobe with resolved R IGHT pleural effusion. 2. RIGHT upper lobe ovoid 14 mm nodule is now evident after the acute pneumoni a has resolved. There is an additional indeterminate 14 mm RIGHT hilar lymph no de. Recommend follow-up chest CT in 3 months. Neoplasm and adenopathy not exclu ded. 3. New small LEFT pleural effusion. 4. Mild worsening of the opacification LEFT upper lobe. 5. Chronic emphysema.
[2020-05-09] MEDS: iohexol 300 mg/mL 100 mL Btl IV (09:44)
== END 2020-05-09 08:27 | disposition home or self-care (01) ==
LOC: RADWPI 08:36
PROVIDERS: PCP Internal Medicine; Visit Provider Family Medicine
DX: Z01.89 Encounter for other specified special examinations (principal); J43.9 Emphysema, unspecified; R91.1 Solitary pulmonary nodule; J90 Pleural effusion, not elsewhere classified
CPT/HCPCS: 71260; Q9967

== ENCOUNTER → 2020-06-20 10:42 | Outpatient (BNVA) | payer OTHER, SELFPAY | PROVIDERS: PCP Internal Medicine; Visit Provider Internal Medicine Cardiovascular Disease | DX: I50.40 Unspecified combined systolic (congestive) and diastolic (congestive) heart failure (principal); R06.02 Shortness of breath; I35.0 Nonrheumatic aortic (valve) stenosis; I43 Cardiomyopathy in diseases classified elsewhere; I27.20 Pulmonary hypertension, unspecified; J42 Unspecified chronic bronchitis; Z79.01 Long term (current) use of anticoagulants | CPT/HCPCS: 80048; 83880; 85025; 85610; 86850; 86900; 87635 ==

== ENCOUNTER 2020-06-23 14:30 | Outpatient (CLI) | payer OTHER, SELFPAY ==
--- NOTE | 2020-06-23 14:56 | PFTS_ITS ---
Date of Study:06/23/20 Date of Dictation: MECHANICS: Forced vital capacity (FVC) is normal. Forced expiratory volume in one second (FEV1) is normal. FEV1/FVC is normal. FLOW VOLUME LOOP: Scooping at lower lung volumes. LUNG VOLUMES: Not measured DIFFUSING CAPACITY FOR CARBON MONOXIDE: Moderately reduced. INTERPRETATION: The prebronchodilator spirometry is normal. No postbronchodilator spirometry was performed. Lung volumes are not measured. Gas exchange (DLCO) is moderately reduced. MTDD
== END 2020-06-23 14:31 | disposition home or self-care (01) ==
PROVIDERS: PCP Internal Medicine; Visit Provider Internal Medicine Pulmonary Disease
DX: J42 Unspecified chronic bronchitis (principal)
CPT/HCPCS: 94010; 94618; 94729

== ENCOUNTER 2020-06-24 05:59 | Day surgery (SDC) | payer OTHER, SELFPAY ==
[2020-06-24] VITALS (22 sets, daily range): BP systolic 103–168; BP diastolic 66–119; PULSE 60–76; RESP 15–97; TEMP 36.8; O2SAT 91–98; BMI 24.0
--- NOTE | 2020-06-24 06:00 | XACV_ITS ---
Ht: 183 cm Wt: 80 kg BSA: 2.02 m2 Gender: Male : 1955 Any Known Allergies: No known allergies Exam Priority: Routine Procedure(s): Procedure Description: Diagnostic procedure Procedure Description: Left Heart Catheterization Procedure Description: Right Heart Catheterization Procedure Description: Left ventriculography Procedure Description: O2 saturation Procedure Description: Coronary Angiography Diagnostic Cath Status: Elective Diagnostic Findings * Left main is extremely short vessel. It appears as though the left anterior descending artery and the circumflex artery have separate ostia. No stenotic lesions were noted. * The left anterior descending artery is a medium caliber vessel which appears to wrap around the LV apex minimally. Mild diffuse intimal irregularities are noted in the vessel. No significant stenotic lesions were noted. * The left circumflex artery is a medium caliber nondominant vessel with no significant stenotic lesions. The artery appears to give off a large atrial branch proximally. The circumflex proper appears to bifurcate. Minimal intimal irregularities are noted in the vessels.. * The right coronary artery is a large dominant vessel which appears to have around 40% eccentric lesion in the proximal segment. The distal segment was found to have another 40 to 50% tubular narrowing. The ostium of the PDA branch also was found to have around 40 to 50% stenosis. PLV branches found to have mild diffuse intimal irregularities.. Conclusions 1. This is a 64-year-old white male presenting with recurrent episodes of congestive heart failure. He was found to have severe aortic valve stenosis with LV systolic dysfunction. For further management of his condition, a right and left heart catheterization with coronary angiogram was recommended. Patient underwent the procedure today. The findings are as follows. 2. Mild to moderate diffuse disease in the right coronary artery. Extremely short left main with no significant stenotic lesions. Mild diffuse intimal irregularities in the left circumflex and left anterior descending arteries. LVEDP of 27 mmHg. The right heart catheterization revealed the mean right atrial pressure was 14 mmHg. RV pressure was 55/7. PA pressure was 69/25 with a mean of 42. Pulmonary capillary wedge pressure was 34. Cardiac output was calculated to be 4.6 L/min. Cardiac index was 2.3. Mean gradient across the aortic valve was 55 mmHg. Aortic valve area was calculated to be 0.69 cm2. Aortic valve index was 0.34. Recommendations * Continue current medical management and risk factor modification. Diagnostic RX Recommendation: other cardiac therapy w/o CABG/PCI LV EDP: 27 mmHg Pressures Phase:Rest AO : 139 / 60 ( 85 ) @ 1:52:00 AM 142 / 55 ( 86 ) @ 1:52:00 AM 137 / 65 ( 87 ) @ 1:52:00 AM 117 / 63 ( 85 ) @ 2:01:00 AM 124 / 64 ( 89 ) @ 2:01:00 AM LV : 183 / 10 / @ 1:52:00 AM 182 / 9 / @ 1:52:00 AM RV : 56 / 9 / @ 1:28:00 AM 55 / 7 / @ 1:37:00 AM PA : 69 / 25 ( 42 ) @ 1:35:00 AM RA : a wave = v wave = mean = 14 @ 1:39:00 AM a wave = v wave = mean = 14 @ 1:40:00 AM Hemodynamic Findings The mean right atrial pressure was 40 mmHg. RV pressure was 55/7. PA pressure was 69/25 with a mean of 42. Pulmonary capillary wedge pressure was 34. Cardiac output was calculated to be 4.6 L/min. Cardiac index was 2.3. Mean gradient across the aortic valve was 55 mmHg. Aortic valve area was calculated to be 0.69 cm2. Aortic valve index was 0.34. O2 Content Phase:Rest PA : O2 Content O2: 58.1 @ 1:52:00 AM Saturations Phase:Rest AO : 83 @ 2:01:00 AM RA : 62 @ 1:52:00 AM RV : 58 @ 1:52:00 AM PA : 58 @ 1:52:00 AM Cardiac Output Phase:Rest Aline : 5 @ 1:52:00 AM Aline Cardiac Index: 2 @ 1:52:00 AM Valves Phase:DefaultPhase AV : 44.0 @ 8:13:13 AM AV Mean Gradient: 55.0 @ 8:13:13 AM Clinical Evaluation EBL: 5mL-10mL Procedural Details Procedure Consent Obtained. Pre-Procedure Time Out. Identified patient by full name and date of as verbalized by the patient/guarantor. Does the consent match the physician's order: Yes. Accurate & Complete Informed Consent: Yes. Inpatient/Outpatient History & Physical on Chart: Yes. If H&P is completed, is and addenduem needed: No; If yes, is the addendum complete: N/A. Visualize and Verify Site with Patient/Guarantor: N/A. Relevant Radiology Images available: N/A. Pre-op teaching completed and patient verbalized understanding. The risks, benefits, and alternatives of sedation and/or procedure were discussed by physician. The patient agrees to continue. Procedure started. [facility] Clinical Fraility Score: 3: Managing Well. Forming Machine Tender Indications: Valvular Disease. Chest Pain Symptom Assessment: Non-anginal Chest Pain. Cardiovascular Instability: No. Correct patient, site and procedure confirmed by cath team. PERRLA. 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 Lungs clear x 5 lobes. IV Site on Arrival: 18 gauge in the left anticubital. IV Site on Arrival: 20 gauge in the right anticubital. IV Fluids: 0.9% NaCl at KVO. 0 mL infused prior to laboratory specialist. Pre Procedural Pulses: bilateral radial was 2+. Attempt to call Dr Clay with no answer. Physician arrived. Physician scrubbed in. Immediate Pre-Procedure Time Out. Correct Patient: Yes; Correct Procedure: Yes; Correct Site: Yes; Correct Patient Position: Yes; Correct Supplies: Yes; Dried Flammable Prep: Yes; Blood Products Available: N/A;. Lidocaine 1% infiltrated to the right brachial. Wire inserted through IV catheter in right brachial vein. IV catheter removed over wire. [place]-Estefania MON catheter inserted. Pre Procedural Pulses: bilateral dorsalis pedis was Doppled. Pre Procedural Pulses: bilateral posterior tibial was Doppled. 0.025 wire inserted through SWAN. Wire out. Wire inserted. Wire out. [place]ef[place] out. Lidocaine 1% infiltrated to the right radial. Arterial access obtained. A 5 [place] Will catheter in over wire. EDP Sample taken: LV 183/10,27; HR: 63 BPM; SpO2: 89%. Pullback taken: LV 182/9,26; AO 139/60(85); Mean: 55mmHg, Peak to Peak: 44mmHg, SEP: 20sec/min; HR: 62 BPM; SpO2: 91%. Catheter redirected to the RCA. Catheter removed over the exchange wire. Multiple views taken of left coronary artery. A 5 [place] JR4 catheter in over wire. Multiple views taken of right coronary artery. Catheter removed over the exchange wire. Physician scrubbed out. A Manual Compression was successful obtaining hemostatsis at the Right Brachial Vein insertion site. A TR Band was successful obtaining hemostatsis at the Right Radial artery insertion site. TR band placed. Hemostasis obtained. Post Procedure: Pulses reassessed and unchanged. PERRLA. 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 No VTE prophylaxis required. Medication's Wasted: Lidocaine 1% = 16 mL. Medication's Wasted: Heparin = 1000 units. Medication's Wasted: Nitro = 49.8 mg. Total IV fluids: 62.3 mL. Contrast type used: Omnipaque 300 mgI/mL, 500 mL bottle. Complications: none. Estimated blood loss: 5mL-10mL. Procedure completed. Post-op diagnosis: aortic valve stenosis, moderate CAD. Patient transferred by wheelchair to CPRU. Vital chart was stopped. Access Site Site: Right Brachial Vein Sheath Size: 6 Fr Hemostasis Method: Manual Compression Hemostasis Success: Successful Site: Right Radial artery Sheath Size: 6 Fr Hemostasis Method: TR Band Hemostasis Success: Successful Procedure Medications Start: 7:16 AM Stop: 7:16 AM Medication: Versed Amount: 1 mg Route: I.V. Start: 7:16 AM Stop: 7:16 AM Medication: Fentanyl Amount: 50 mcg Route: I.V. Start: 7:21 AM Stop: 7:21 AM Medication: Versed Amount: 1 mg Route: I.V. Start: 7:43 AM Stop: 7:43 AM Medication: Fentanyl Amount: 50 mcg Route: I.V. Start: 7:44 AM Stop: 7:44 AM Medication: Verapamil Amount: 5 mg Route: I.A. Start: 7:44 AM Stop: 7:44 AM Medication: Nitrogylcerin Amount: 200 mcg Route: I.A. Start: 7:53 AM Stop: 7:53 AM Medication: Heparin Amount: 5000 units Route: I.V. I, the attending physician, have reviewed and verified all procedure medications. Yes, all medications given per verbal order History/Risk Factors Hypertension: No Dyslipidemia: No Peripheral Arterial Disease (PAD): No Myocardial Infarction (MO): No Obesity: No Renal Disease: No Tobacco Use: Former Prior Interventions PCI: No CABG: No Valve Surgery: No Report Signatures Finalized by Dr Alina Clay MD [facility] on 06/24/2020 12:13 PM
[2020-06-24] MEDS: diphenhydrAMINE 50 mg Capsule PO (06:50)
[2020-06-24 06:55] LABS: Glomerular Filtration Rate 46.8 mL/min (90-130)
--- NOTE | 2020-06-24 07:03 | W.PM.OPSUD ---
Surgery/Procedure H&P Update DATE OF PROCEDURE: June 24, 2020 DATE H&P PERFORMED: 06/20/20 H&P UPDATE INFORMATION: I have reviewed H&P completed within last 30 days, I have examined patient prior to procedure and No changes to prior documentation PREOP DIAGNOSIS: Severe aortic valve stenosis/Cardiomyopathy/congestive heart failure PRIMARY INDICATION FOR PROCEDURE: As above PLANNED PROCEDURE: Operation Date: 06/24/20 07:00 Proposed Procedures p Bilateral Cardiac Catheterization I35.0 27557(Bilateral) - Alina Clay MD PATIENT REASSESSED PRIOR TO SEDATION, WITH NO CHANGE NOTED: Yes PHYSICAL EXAM: alert, oriented x 3, clear to auscultation bilaterally and regular rate & rhythm AIRWAY EVAL/ANESTHESIA PLAN: normal airway, ASA III, Monitored Anesthesia, Local Anesthesia and Risks, benefits & alternatives of sedation and/or procedure discussed
--- NOTE | 2020-06-24 08:40 | PC.NURSE ---
recovery received pt from chemical lab supervisor after a diagnostic right and left heart cauterization. Pt alert and oriented x3. Complains of no pain. TR band in place on right wrist and pt was educated on not pushing, pulling, lifting of right arm. pt stated understanding. no hematoma noted. pt placed on heart monitor and vitals obtained. will continue to monitor per protocol.
--- NOTE | 2020-06-24 10:52 | PC.NURSE ---
tr band tr band removal without incident. no hematoma, weeping or bleeding noted. wrist wrapped with bandaid and coban to remind pt not to use arm.
== END 2020-06-24 13:48 | disposition home or self-care (01) ==
PROVIDERS: PCP Internal Medicine; Visit Provider Internal Medicine Cardiovascular Disease
DX: I35.0 Nonrheumatic aortic (valve) stenosis (principal); I42.9 Cardiomyopathy, unspecified; I50.9 Heart failure, unspecified; I25.10 Atherosclerotic heart disease of native coronary artery without angina pectoris
CPT/HCPCS: 12345; 36415; 82565; 93460; C1751; C1769; C1887; C1894; J1644; J2250; J3010; J3490; J7030; Q0163; Q9967